=== PATIENT | male | born 1925 | race Caucasian/White ===

== ENCOUNTER 2016-05-06 14:41 | Inpatient (IN) | payer MEDICARE ==
[~2016-05-06] VITALS: Ht 182.9 cm; Wt 73.0 kg
[~2016-05-06 14:41] MED LIST: ALBU8.5H2 IH; ASP81TEC; ASPI-628 PO; FLUT12AE8 IH; HYDR25TA4 PO; INS7030U SQ; INSLIS SQ; INSU100I13 SUBQ; LISI10TA2 PO; LISI10TA9 PO; LOVA20TA PO; LOVA20TA7 PO; NPH,100V SQ; centrum silver; vitamin C
[2016-05-06 14:58] VITALS: BP 132/68; PULSE 99; RESP 16; O2SAT 87
[2016-05-06 15:07] VITALS: BP 116/70; PULSE 107; RESP 22; O2SAT 95
[2016-05-06] MEDS ORDERED: Azithromycin Inj 500 MG in Dextrose 5% w/Vial Mate 250 ML IV ONE (15:25)
[2016-05-06] MEDS ORDERED: cefTRIAXone Inj 2 GM in IV Premix 1 EACH IV ONE ×2 (15:25→15:50)
--- NOTE | 2016-05-06 15:26 | ED.REPORT ---
HPI-Dyspnea / Wheezing Date of Service May 06, 2016 ED Provider: Brock Shannon MD An 89 year old male with a history of diabetes, hypertension, hyperlipidemia, emphysema, and pneumonia presents to the ED accompanied by his family from his PCP's office for decreased O2 saturation and an abnormal x-ray just prior to arrival. The patient was at his PCP for a re-check after never fully recovering from influenza at the beginning of this month. His only complaint at this time is a productive cough, however his daughter has noticed increased work of breathing and SOB onset last night. His also noted that his blood sugar has been high over the past three days. The patient denies diaphoresis, hemoptysis, chest pain, lower extremity edema, dizziness, lightheadedness, decreased appetite, or other symptoms. He uses an albuterol inhaler regularly and has been hospitalized with pneumonia in the past. Nursing Notes Stated Complaint: POSSIBLE PNEUMONIA Chief Complaint: Respiratory Distress Nursing Notes Reviewed: Yes (KuGou, FitOrbits not reconciled) Allergies: Coded Allergies: No Known Allergies (Verified , 05/06/16) Scheduled ([centrum silver]) DAILY ([vitamin C]) DAILY Aspirin (Aspir 81) 81 Mg Tablet.dr 81 MG PO DAILY Aspirin-Expunged Drug, Do Not Renew! (Aspirin EC-Expunged Drug, Do Not Renew!) 81 Mg Tablet DAILY Fluticasone Propionate (Flovent HFA 110 mcg) 12 Gm Aer.w.adap 1 PUFF IH BID Hydrochlorothiazide (Hydrochlorothiazide) 25 Mg Tablet 25 MG PO DAILY Hydrochlorothiazide-Expunged, Do Not Renew! (Hydrochlorothiazide-Expunged, Do Not Renew!) 25 Mg Tablet 25 MG PO DAILY Insul NPH/REG-Expunged Drug, Do Not Renew! (Novolin 86-58-Utfwjbik Drug, Do Not Renew!) 10 Ml Vial 19 UNIT SQ AM Insulin Glargine (Lantus U100 Solostar Insulin Pen) 100 Unit/1 Ml Insuln.pen 50 UNIT SUBQ DAILY Insulin Lispro-Expunged Drug, Do Not Renew! (Humalog-Expunged Drug, Do Not Renew !) 100 U/Ml Vial 5 U SQ PRN Lisinopril (Lisinopril) 10 Mg Tablet 10 MG PO DAILY Lisinopril-Expunged Drug, Do Not Renew! (Lisinopril-Expunged Drug, Do Not Renew! ) 10 Mg Tablet 10 MG PO DAILY Lovastatin (Lovastatin) 20 Mg Tablet 20 MG PO HS Lovastatin-Expunged Drug, Do Not Renew! (Mevacor-Expunged Drug, Do Not Renew!) 20 Mg Tablet 20 MG PO DAILY Nph, Human Insulin Isop-Expunged Drug, Do Not (Novolin N-Expunged Drug, Do Not Renew!) 100 U/Ml Vial 26 U SQ HS Scheduled PRN Albuterol HFA (Proair HFA) 8.5 Gm Hfa.aer.ad 2 PUFFS IH Q4 PRN PRN For Shortness of Breath General Time Seen by MD: 15:18 Chief Complaint Cough Hx Obtained From: Patient, Spouse, Daughter Arrived By: Walk-in Sudden in Onset?: Yes Symptom Duration: More than a week... (3 weeks) Location: : None Severity: Current: No pain currently Severity: Maximum: No pain Associated with: Denies: Chest pain, Fever, Vomiting Pertinent Negative: Relieved by nothing Context Related History: Reports: Current meds, Pneumonia Recent Healthcare: Recent doctor visit Similar Sx Previous: Yes Past Medical History Past Medical History Diabetes mellitus ho Pancreatitis High cholesterol Emphysema (not on home O2) ho Pneumonia Hypertension Chronic left bundle-branch block Past Surgical History Cardiac catheterization Family History Noncontributory Smoking History Unknown if Ever Smoker Social History The patient does not normally drink alcohol but reports drinking alcohol yesterdat (03/14/15) Drug Use: Denies drug use Other Social History: Good social support, , Local resident Ambulatory Status Independent Review of Systems Review of Systems Note: + decreased O2 saturation, abnormal x-ray at PCP office, productive cough, increased work of breathing, elevated blood sugar - decreased appetite Constitutional: Denies: Fever Respiratory: Reports: Shortness of breath, Denies: Hemoptysis Cardiovascular: Denies: Chest pain Musculoskeletal: Denies: Extremity swelling Skin: Denies Diaphoresis Complete sys rev & neg: except as marked. GI: Denies: Vomiting Neurologic: Denies: Dizziness, Lightheaded Physical Exam Initial Vital Signs Vital Signs (First) Date Time Temp Pulse Resp B/P Pulse Ox O2 Delivery O2 Flow Rate FiO2 05/06/16 14:58 37.3 99 16 132/68 87 Room Air 05/06/16 15:07 2.5 Initial VS: Reviewed, Vital signs abnormal Skin: Warm, Dry, No cyanosis Neurologic: Alert, Oriented, Nonfocal Psychiatric: Mood/affect normal, Behavior normal, Normal thought content General/Constitutional: Awake, Alert, No acute distress Appears chronically ill Respiratory / Chest: No respiratory distress Wheezing / Retractions: Positive: Wheezing moderate (Bilateral) Rales / Rhonchi: Positive: Rhonchi diffuse (Bilateral) Tachypneic Patient denies dyspnea Cardiovascular: Heart rate NL, Regular rhythm, Heart sounds NL ENT: Airway patent, Mucous membranes moist Abdomen: Soft, Non-tender Lower Extremity / Pelvis / MS: Inspection NL, No edema Head / Eyes: Atraumatic, Normocephalic Conjunctiva / Sclera: Positive: Injected left, Injected right Interpretation & Diagnostics Interpretation & Diagnostics: Chest x-ray taken just prior to arrival in PCP office Influenza Negative Lab Results Interpretation Result Diagram: 05/06/16 1536 05/06/16 1536 Test 05/06/16 15:36 White Blood Count 10.2th/mm3 (3.8-10.1) Red Blood Count 5.06mil/mm3 (4.40-5.80) Hemoglobin 14.8g/dL (13.8-17.2) Hematocrit 44.6% (41.0-50.0) Mean Corpuscular Volume 88.1fL (81-100) Mean Corpuscular Hemoglobin 29.2pg (27.0-35.0) Mean Corpuscular Hemoglobin Concent 33.2% (32.0-37.0) Red Cell Distribution Width 12.9% (12.3-15.4) Platelet Count 391bil/L (150-400) Neutrophils (%) (Auto) 81.7% (40-74) Lymphocytes (%) (Auto) 9.9% (14-46) Monocytes (%) (Auto) 6.7% (4-12) Eosinophils (%) (Auto) 1.1% (0-5) Basophils (%) (Auto) 0.4% (0-3) Sodium Level 130mEq/L (134-144) Potassium Level 5.0mEq/L (3.5-5.2) Chloride Level 92mEq/L (97-108) Carbon Dioxide Level 23mmol/L (18-29) Blood Urea Nitrogen 50mg/dL (8-27) Creatinine 1.32mg/dL (0.76-1.27) Estimat Glomerular Filtration Rate 54mL/min (>59) Glucose Level 554mg/dL (60-99) Lactic Acid Level 2.1mmol/L (0.4-2.0) Calcium Level 8.8mg/dL (8.5-10.1) Total Bilirubin 0.4mg/dL (0.0-1.2) Aspartate Amino Transf (AST/SGOT) 24U/L (0-50) Alanine Aminotransferase (ALT/SGPT) 24U/L (0-44) Alkaline Phosphatase 116U/L (25-160) Troponin T 0.016ug/L (0.0-0.011) Pro-B-Type Natriuretic Peptide 2033pg/mL (0-486) Total Protein 7.8g/dL (6.4-8.4) Albumin 3.4g/dL (3.4-5.0) Lab Results Interpretation: CBC normal CMP's significant hyperglycemia, but no evidence of DKA Troponin marginally elevated, suspect secondary to hypoxia rather than primary cardiac etiology but may need to be trended BNP is elevated, the patient has no clinical radiographs of findings of congestive heart failure ECG Interpretation ECG Interpretation: Sinus rhythm rate 92 LBBB No change from 03/14/15 Time: 15:15 Interpreted by: ED physician X-Ray Chest Interpretation Chest Xray Interpretation: IMPRESSION: Patchy right basilar airspace opacity suspicious for pneumonia. Please correlate with clinical and laboratory data. Dictated by: Kathy Mcmillan MD, PhD on 05/06/2016 at 15:46 View: Portable, 1 view Interpretation / Wet Read by: Interpret - Radiologist Re-Eval/Medical Decision Med Decision/Clinical Course This is an 89-year-old male sent from the primary care physician office with symptoms and x-ray suggestive of pneumonia. This is a patient brought in by family,'s the patient's very stoic individual. He has chronic COPD, not on home O2, and is a diabetic. He has had a recent illness beginning of April along with his , she has recovered she still had a cough-and then symptoms started to worsen with increasing cough and increasing shortness of breath according to the family in the past couple of days. The patient denies having worsening, but all family members have noticed this-and the had a PCP appointment today and dragging along and demanded that he be examined. He was noted to have rhonchi, had a chest x-ray in the office was positive pneumonia noted to have an abnormally low O2 sat of 86% on room air, with his baseline being 90-92%. The patient was sent to the ED. Here he is afebrile, he is to-he claims that his breathing is baseline, per the family does say it felt worse than baseline, he looks mildly dyspneic. He does have wheezes and rhonchi. Have JVD, or leg edema or overt signs of heart failure clinically. Nor does he have evidence of DVT/PE clinically. Nurse initiated orders included a chest x-ray, which was unfortunately repeated before I was able to cancel because the nurses were not aware that he had one just prior to coming in. Both films demonstrate what looks like pneumonia and fits clinically. The patient's LABS ALSO SIGNIFICANT HYPERGLYCEMIA. HE IS BEING HYDRATED ALTHOUGH HIS BNP IS ELEVATED, I DO NOT THINK HE HAS CLINICAL CONGESTIVE HEART FAILURE. The patient received albuterol, Atrovent, steroids, he had a flu swab that was negative, as being started on ceftriaxone and Zithromax. He is being admitted in improved condition. I discussed CODE STATUS-the family after discussion the patient indicates that he will currently be full code, but indicates he does not want to be kept alive on a ventilator for sustained. If he does not rapidly turn around. Source of Hx: Old records Re-Evaluation/Progress : Time of Eval: 15:30 Patient Status: Condition improved Re-Evaluation/Progress Note: Discussed with patient x-ray results, diagnosis, and plan for admit. Patient agrees with plan for care and all questions were addressed. Discussed code status with patient in the presence of his and daughter. Patient is FULL CODE but does not want long resuscitative efforts and does not wish to have prolonged ventilator use if he is not turning around quickly. Consultation #1: Referral / Consult Name: Nathen Bridges DO Consulted With: Hospitalist Call Returned at: 16:22 [place]: Agrees with evvera, Agrees with plan, Accepts admit Consultation #2: Referral / Consult Name: Nathen Bridges DO Consulted With: Hospitalist Call Returned at: 16:59 [place]: Agrees with evvera, Agrees with plan Note: Updated Dr. Bridges on patient's case and lab results Differential Diagnosis: Positive: COPD exacerbation, Pneumonia, Negative: Hypertensive emergency, Pulmonary embolism, Respiratory failure Counseled Regarding: Diagnosis, Need for admission Discharge & Departure Impression: Primary Impression: Pneumonia Pneumonia type: due to unspecified organism Laterality: right Lung location : lower lobe of lung Qualified Code: J18.9 - Pneumonia, unspecified organism Additional Impressions: COPD (chronic obstructive pulmonary disease) COPD type: COPD with acute exacerbation Qualified Code: J44.1 - Chronic obstructive pulmonary disease with (acute) exacerbation Hyperglycemia Elevated troponin Hypoxia Disposition: ADMITTED TO HOSPITAL Discharge Condition All VS Reviewed: Yes Condition: Stable Referrals: Bandar Gutierrez DO (PCP) [place] Attestation Portions of this note were transcribed by Karey Kimball. I, Dr. Shannon, personally performed the history, physical exam, and medical decision-making; I reviewed and confirmed the accuracy of the information in the transcribed note. Signed by: Dedrick Medel, 05/06/2016, 16:32 copies to: Bandar Gutierrez Matthew F MD May 06, 2016 15:26 KAREY KIMBALL May 06, 2016 16:03
[2016-05-06 15:41] LABS: BASOPHILS % (AUTO) 0.4 % (0-3); EOSINOPHILS % (AUTO) 1.1 % (0-5); MONOCYTES % (AUTO) 6.7 % (4-12); Mean Corpuscular Hemoglobin 29.2 pg (27.0-35.0); Mean Corpuscular Volume 88.1 fL (81-100); NEUTROPHILS % (AUTO) 81.7 % (40-74); Platelet Count 391 bil/L (150-400)
--- NOTE | 2016-05-06 15:48 | DRSVH ---
PROCEDURE: X-RAY CHEST ONE VIEW, PORTABLE ([id number]) INDICATIONS: sob, cough TECHNIQUE: One view of the chest was acquired. COMPARISON: [facility], , CHEST 1VW (PORTABLE), 09/12/2007, 11:56. FINDINGS: Surgical changes and devices: None. Lungs and pleura: No pleural effusions or pneumothorax. Interstitial prominence is present unchanged compared to prior examination. Patchy air space opacities have developed the lung bases bilaterally suspicious for pneumonia. Mediastinum: Mediastinal contours appear normal. Heart size is normal. Bones and chest wall: No suspicious bony lesions. Overlying soft tissues appear unremarkable. IMPRESSION: Patchy right basilar airspace opacity suspicious for pneumonia. Please correlate with cli nical and laboratory data. Dictated by: Kathy Mcmillan MD, PhD on 05/06/2016 at 15:46 Approved by: Kathy Mcmillan MD, PhD on 05/06/2016 at 15:46
[2016-05-06] MEDS ORDERED: Albuterol-Ipratropium 3 mL Inhalation Solution NEB ONE (15:55)
[2016-05-06] MEDS ORDERED: CEFTRIAXONE IV ONE (15:55)
[2016-05-06] MEDS ORDERED: D5W IV ONE (15:55)
[2016-05-06] MEDS ORDERED: Albuterol 2.5 mg/3 mL Inhalation Solution NEB ONE (15:55)
[2016-05-06] MEDS ORDERED: MethylprednisoLONE Sodium Succinate 62.5 mg/mL 2 mL Inj IVPUSH ONE (15:55)
[2016-05-06 16:04] LABS: TROPONIN T 0.016 ug/L (0.0-0.011)
[2016-05-06 16:06] VITALS: BP 114/73; PULSE 93; RESP 16; RESP 23; O2SAT 90
[2016-05-06] MEDS ORDERED: Insulin Human REGular-Omnicell 100 Unit/mL SUBQ ONE (16:35)
[2016-05-06 16:43] VITALS: BP 116/73; PULSE 100; RESP 30; O2SAT 93
[2016-05-06] MEDS ORDERED: 0.9% Sodium Chloride 500 ML IV ONE (17:20)
[2016-05-06] MEDS ORDERED: Alum-Mag Hydrox-Simeth 30 mL Suspension PO PRN (17:25)
[2016-05-06] MEDS: Vancomycin Dose per Pharmacist XX SCH (17:25)
[2016-05-06] MEDS ORDERED: Polyethylene Glycol (PEG) 17 Gm Powder PO PRN (17:25)
[2016-05-06] MEDS ORDERED: Glucose 40% Oral Gel 15 Gm Tube PO PRN (17:25)
[2016-05-06 18:00] LABS: APPEARANCE,URINE CLEAR (CLEAR,HAZY); COLOR,URINE YELLOW (YELLOW); OCCULT BLOOD,URINE SMALL (NEGATIVE); PH,URINE 5.5 (5.0-8.0); UROBILINOGEN,URINE NORMAL (NORMAL)
[2016-05-06 18:23] VITALS: BP 113/57; PULSE 110; RESP 16; O2SAT 92
--- NOTE | 2016-05-06 18:24 | NUR ---
Admit Pt arrived to [facility]1 from the ED via [facility]. Rec'd report from ARNALDO Cross. Pt able to ambulate from [facility] to hospital bed. Droplet precautions initiated, IV SL, Pt reports no pain at this time. 2L via MD. ROLLER MAN oriented patient to room and call light.
--- NOTE | 2016-05-06 18:25 | PCM.HPMED ---
Subjective Date of Service May 06, 2016 Primary Provider: Admitting Physician: Nathen Bridges DO Primary Care Physician: Bandar Gutierrez DO Attending Physician: Nathen Bridges DO Admit Status: From the Emergency Department Chief Complaint: cough and dyspnea History of Present Illness: Hank is an 89yo male with emphysema and type 2 diabetes who presented to the Emergency department on request of his PCP after he was found to be hypoxic and an in office CXR showed a right lower lobe pneumonia. his had him go to his PCP as he has been coughing and appeared more ill to her. Hank and his both became ill after being exposed to a niece that had influenza A, they both completed 5 day courses of Tamiflu on 04/20/16. His recovered in 4 days , but he has continued to feel tired. Hank has a new cough with white-steiner sputum. He denies any dyspnea, but admits to feeling better with supplemental oxygen at 2L/h in the ER. He denies any night sweats, fever, or chills. He denies any recent travel. In the ER, he was given ceftriaxone 2g IV, Azithromycin 500mg IV, DuoNeb once and Solu-Medrol 125mcg IV. Note that his creatinine is 1.36 at baseline per outpatient record review. Review of Systems: A comprehensive review of systems was conducted with the patient and found to be negative except as above in the History of Present Illness. 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 Smoked 1 pack/day for 25 years.) Years of Smokin Additional Information Local resident who lives with his . no home supplemental oxygen use. Does not use any assistive devices to ambulate. He was in the , but never traveled overseas. He used to work in [employer], currently retired. Exam Vital Signs Vital Sign - Last Date Time Temp Pulse Resp B/P Pulse Ox O2 Delivery O2 Flow Rate FiO2 05/06/16 16:43 100 30 116/73 93 Nasal Cannula 05/06/16 16:06 2 05/06/16 14:58 37.3 Exam General: Elderly male patient sitting up in bed with an oxygen mask in place at 2L/h. No acute distress though he is ill appearing. Awake, alert and oriented. HEENT: Normocephalic, atraumatic. External ears without defect. Anicteric sclerae. Moist mucus membranes. Neck: No JVD or lymphadenopathy Cardiovascular: Regular rate and rhythm without murmurs, rubs, or gallops appreciated Pulmonary: Right basilar crackles present. Subtle wheezing throughout. No use of accessory muscles. No tripoding or gasping. No conversational dyspnea. Abdomen: Normoactive bowel tones. Soft, nontender, nondistended. No hepatosplenomegaly or masses appreciated. Extremities: No clubbing, cyanosis, or edema present. Thin extremities. Skin: Normal temperature, turgor, and texture; no rash.. Neurological: Cranial nerves grossly intact. Normal muscle strength, tone, and bulk. No known gait impairment. Psychiatric: Normal mood and affect. Lab and Diagnostics Result Diagram: 05/06/16 1536 05/06/16 1536 X-Rays, CTs and MRIs Chest xray: IMPRESSION: Patchy right basilar airspace opacity suspicious for pneumonia. Please correlate with clinical and laboratory data. Dictated by: Kathy Mcmillan MD, PhD on 05/06/2016 at 15:46 12-lead ECG EKG with a Left BBB, this is unchanged compared with an EKG from 2015 Assessment & Plan Hank is an 89yo male with emphysema who has had worsening cough and dyspnea 2 weeks after completing a course of Tamiflu for influenza A, found to be hypoxemic requiring supplemental oxygen and to have the appearance of a right basilar pneumonia on chest xray. 1. Community acquired pneumonia, acute - There is a potential risk for MRSA pneumonia given his recent influenza, thus treating with Vancomycin until MRSA screen result is available - Levofloxacin - Legionella and strep pneumoniae Antigen testing - Sputum cultures - Procalcitonin ordered 2. Acute on chronic COPD exacerbation in the setting of pneumonia - Prednisone 40mg daily for 5 days - DuoNeb q4h while awake - Supplemental oxygen to maintain oxygen saturation 88-92% - Monitor 3. Type 2 Diabetes mellitus, chronically on home insulin on well controlled - Hgb A1c of 7.9% on 04/21/2016 per [facility] records - Blood glucose much more elevated that is his norm, likely due to infection - Fingerstick blood glucose checks - Lantus 31units qHS - Medium correctional insulin 4. Hypertension, chronic and stable - Continue home hydrochlorothiazide dosing - Monitor 5. Hyperlipidemia, chronic and presumed stable - Continue statin therapy Acetaminophen PRN Bowel regimen PRN Hank is admitted under inpatient status with expected length of stay greater than 2 midnights due to severity of presenting symptoms, risk of adverse event, and complexity of treatment plan. VTE Prophylaxis: Sub-Q Heparin (Unfractionated) Resuscitation Status: DNR/DNI:Do Not Resuscitate/Intubate (Discussed at bedside with the patient. Would want BiPAP if he has a pulse. ) Time spent 50 minutes Attending Statement I have seen and evaluated patient at bedside in addition to directly supervising care provided by resident physician. I agree with above documentation. Amelia Sharma DO May 06, 2016 17:50 Nathen Bridges DO May 07, 2016 09:10
[2016-05-06] MEDS ORDERED: VANCOMYCIN IV ONE (18:30)
[2016-05-06] MEDS ORDERED: DEXTROSE 5% IV ONE (18:30)
[2016-05-06] MEDS: Insulin LISPRO 300 Unit/3 mL Inj SUBQ SCH ×2 (20:17→22:00)
[2016-05-06] MEDS ORDERED: Insulin GLARgine 100 Unit/mL Syringe SUBQ SCH (21:00)
[2016-05-06] MEDS: Albuterol-Ipratropium 3 mL Inhalation Solution NEB SCH (21:08)
[2016-05-06 21:09] VITALS: PULSE 112; RESP 20; O2SAT 91
--- NOTE | 2016-05-06 22:19 | PCM.CONPHA ---
Subjective Date of Service: May 06, 2016 cough and dyspnea Reason for Pharmacy Consult: Vancomycin Dosing Objective Vital Signs Date Time Temp Pulse Resp B/P Pulse Ox O2 Delivery O2 Flow Rate FiO2 05/06/16 21:09 112 20 91 Nasal Cannula 2.00 05/06/16 18:23 36.8 110 16 113/57 92 Nasal Cannula 2.00 05/06/16 17:48 37.3 100 30 116/73 93 Nasal Cannula 2 05/06/16 16:43 100 30 116/73 93 Nasal Cannula 05/06/16 16:06 93 16 114/73 90 Nasal Cannula 2 05/06/16 16:06 93 23 90 Nasal Cannula 2 05/06/16 15:07 107 22 116/70 95 Nasal Cannula 2.5 05/06/16 14:58 37.3 99 16 132/68 87 Room Air Weight (Kilograms): 71.600 Height (Feet): 6 Height (Inches): 0.00 Test 05/06/16 15:36 05/06/16 17:25 05/06/16 17:33 White Blood Count 10.2th/mm3 (3.8-10.1) Red Blood Count 5.06mil/mm3 (4.40-5.80) Hemoglobin 14.8g/dL (13.8-17.2) Hematocrit 44.6% (41.0-50.0) Mean Corpuscular Volume 88.1fL (81-100) Mean Corpuscular Hemoglobin 29.2pg (27.0-35.0) Mean Corpuscular Hemoglobin Concent 33.2% (32.0-37.0) Red Cell Distribution Width 12.9% (12.3-15.4) Platelet Count 391bil/L (150-400) Neutrophils (%) (Auto) 81.7% (40-74) Lymphocytes (%) (Auto) 9.9% (14-46) Monocytes (%) (Auto) 6.7% (4-12) Eosinophils (%) (Auto) 1.1% (0-5) Basophils (%) (Auto) 0.4% (0-3) Sodium Level 130mEq/L (134-144) Potassium Level 5.0mEq/L (3.5-5.2) Chloride Level 92mEq/L (97-108) Carbon Dioxide Level 23mmol/L (18-29) Blood Urea Nitrogen 50mg/dL (8-27) Creatinine 1.32mg/dL (0.76-1.27) Estimat Glomerular Filtration Rate 54mL/min (>59) Glucose Level 554mg/dL (60-99) Lactic Acid Level 2.1mmol/L (0.4-2.0) Calcium Level 8.8mg/dL (8.5-10.1) Total Bilirubin 0.4mg/dL (0.0-1.2) Aspartate Amino Transf (AST/SGOT) 24U/L (0-50) Alanine Aminotransferase (ALT/SGPT) 24U/L (0-44) Alkaline Phosphatase 116U/L (25-160) Troponin T 0.016ug/L (0.0-0.011) Pro-B-Type Natriuretic Peptide 2033pg/mL (0-486) Total Protein 7.8g/dL (6.4-8.4) Albumin 3.4g/dL (3.4-5.0) Urine Color Yellow (YELLOW) Urine Appearance Clear (CLEAR,HAZY) Urine pH 5.5 (5.0-8.0) Urine Specific [place] 1.020 (1.003-1.035) Urine Protein Negativemg/dL (NEG,TRACE) Urine Glucose (UA) >1000mg/dL (NEGATIVE) Urine Ketones Negativemg/dL (NEGATIVE) Urine Occult Blood Small (NEGATIVE) Urine Nitrite Negative (NEGATIVE) Urine Bilirubin Negative (NEGATIVE) Urine Urobilinogen Normalmg/dL (NORMAL) Urine Leukocyte Esterase Trace (NEGATIVE) Urine RBC 0-2/hpf (0-2) Urine WBC >50/hpf (0-5) Urine Epithelial Cells Few/hpf (NONE-MOD) Urine Crystals None seen (NONE SEEN) Urine Bacteria Many/hpf (NONE-FEW) Urine Hyaline Casts None/lpf (NONE) Urine Granular Casts None seen (NONE SEEN) Urine Waxy Casts None seen (NONE SEEN) Urine Red Blood Cell Casts None seen (NONE SEEN) Urine White Blood Cell Casts None seen (NONE SEEN) Urine Mucus None seen (None Seen) Urine Trichomonas None seen (NONE SEEN) Urine Yeast None (NONE SEEN) Urinalysis Comment None Urine Culture Reflexed Indicated Assessment/Plan Assessment/Plan Vanco per Rx Indication: PNA/ possible MRSA Goal trough : 15-20 Due to uncertain renal status, will do 1st rough after 24hrs LD: 1250mg Enzo Norris PharmD May 06, 2016 22:19
[2016-05-06] MEDS ORDERED: Dextrose 5% 0.45% NaCl 1,000 ML IV PRN (23:03)
[2016-05-06] MEDS ORDERED: Insulin Human REGular Inj 100 UNIT in 0.9% Sodium Chloride-Pha MIX 100 ML IV SCH (23:03)
[2016-05-07] VITALS (7 sets, daily range): BP systolic 106–121; BP diastolic 56–70; PULSE 82–98; RESP 15–20; O2SAT 90–98
[2016-05-07] MEDS: Sodium Chloride LOK Flush 10 mL Syringe IVFLUSH SCH ×3 (00:30→16:29)
[2016-05-07] MEDS: Heparin 5,000 Unit/mL Inj SUBQ SCH ×4 (00:30→18:25)
--- NOTE | 2016-05-07 04:30 | NUR ---
BG/ Insulin Drip At beginning of shift patients BG was 568. 7 units or sliding scale was given, and MD notified. BG recheck was 590. At 2200 31 units of lantus given, and 7 units sliding scale was held per hospitalist order. Hospitalist wanted to hold sliding scale and recheck blood sugar in 1 hour. Upon reassessment at 2300 BG was 549. MD notified, and an insulin drip was ordered. Drip was started at 0049. Patient has denied any diaphoresis, headache, dizziness, or anxiety during this. Will continue to monitor, and continue Q1 hour, or more frequent checks depending on BG status.
[2016-05-07 04:58] LABS: BASOPHILS % (AUTO) 0.1 % (0-3); EOSINOPHILS % (AUTO) 0 % (0-5); MONOCYTES % (AUTO) 1.4 % (4-12); Mean Corpuscular Hemoglobin 29.7 pg (27.0-35.0); Mean Corpuscular Volume 86.8 fL (81-100); NEUTROPHILS % (AUTO) 94.6 % (40-74); Platelet Count 336 bil/L (150-400)
[2016-05-07] MEDS: Albuterol-Ipratropium 3 mL Inhalation Solution NEB SCH ×2 (07:40→11:57)
[2016-05-07] MEDS: Insulin LISPRO 300 Unit/3 mL Inj SUBQ SCH ×6 (08:00→22:17)
[2016-05-07] MEDS: Vancomycin Dose per Pharmacist XX SCH (08:30)
[2016-05-07] MEDS ORDERED: 0.9% Sodium Chloride 500 ML IV ONE (09:10)
[2016-05-07] MEDS ORDERED: 0.9% Sodium Chloride 250 ML IV ONE (09:25)
--- NOTE | 2016-05-07 09:30 | NUR ---
Insulin Drip IV Insulin drip was d/c'd per MD order at 0930.
--- NOTE | 2016-05-07 09:30 | NUR ---
IV Bolus Per MD order pt received 250mL IV bolus. Tolerated well.
[2016-05-07] MEDS: predniSONE 20 mg Tablet PO SCH (09:57)
[2016-05-07] MEDS: 0.9% Sodium Chloride 1,000 ML IV SCH ×2 (09:57→20:04)
[2016-05-07] MEDS: levoFLOXacin Inj 750 MG in IV Premix 1 EACH IV SCH (09:58)
[2016-05-07] MEDS ORDERED: Albuterol-Ipratropium 3 mL Inhalation Solution NEB PRN (16:51)
[2016-05-07] MEDS ORDERED: OMEG1CAP99 PO (19:43)
[2016-05-07] MEDS ORDERED: GLUC500T12 PO (19:44)
[2016-05-07] MEDS ORDERED: SALM50DI IH (19:46)
[2016-05-07] MEDS ORDERED: INSU100I17 SUBQ (19:46)
--- NOTE | 2016-05-07 20:28 | PCM.PNMED ---
Subjective Date of Service May 07, 2016 Subjective Hank has been feeling a bit better today. Exam Vital Signs Vital Sign - Last Date Time Temp Pulse Resp B/P Pulse Ox O2 Delivery O2 Flow Rate FiO2 05/07/16 15:41 36.8 93 17 119/61 90 Nasal Cannula 3.00 Intake and Output 05/06/16 05/06/16 05/07/16 Cumulative From/Thru 15:00 23:00 07:00 05/06/16 14:58 - 05/07/16 06:52 Intake Total 550 ml 936 ml 1486 ml Output Total 200 ml 1150 ml 1350 ml Balance 350 ml -214 ml 136 ml Intake Oral 636 ml 636 ml IV Total 550 ml 300 ml 850 ml Output Urine Total 200 ml 1150 ml 1350 ml # Voids 1 1 # Bowel Movements 0 0 Exam General: Elderly male patient sitting up in bed with an oxygen mask in place at 2L/h. No acute distress. Well nourished. Awake, alert and oriented. HEENT: Normocephalic, atraumatic. External ears without defect. Anicteric sclerae. Moist mucus membranes. Neck: No JVD or lymphadenopathy Cardiovascular: Regular rate and rhythm without murmurs, rubs, or gallops appreciated Pulmonary: Right basilar crackles present. No wheezes or rhonchi. No use of accessory muscles. No tripoding or gasping. No conversational dyspnea. Abdomen: Normoactive bowel tones. Soft, nontender, nondistended. No hepatosplenomegaly or masses appreciated. Extremities: No clubbing, cyanosis, or edema present. Thin extremities. Skin: Normal temperature, turgor, and texture; no rash.. Neurological: Cranial nerves grossly intact. Normal muscle strength, tone, and bulk. No known gait impairment. Psychiatric: Normal mood and affect. IVs and Medications Medications Reviewed: Medications were reviewed in detail Lab and Diagnostics Result Diagram: 05/07/16 9213 05/07/16 1208 Assessment & Plan Hank is an 89yo male with emphysema who has had worsening cough and dyspnea 2 weeks after completing a course of Tamiflu for influenza A, found to be hypoxemic requiring supplemental oxygen and to have the appearance of a right basilar pneumonia on chest xray. 1. Community acquired pneumonia, acute - There is a potential risk for MRSA pneumonia given his recent influenza, thus treating with Vancomycin until MRSA screen result is available - Levofloxacin - Legionella and strep pneumoniae Antigen testing was negative - Sputum cultures - Procalcitonin is low, though prednisone could be suppressing this value 2. Acute on chronic COPD exacerbation in the setting of pneumonia - Prednisone 40mg daily for 5 days - DuoNeb q4h while awake - Supplemental oxygen to maintain oxygen saturation 88-92% - Monitor 3. Type 2 Diabetes mellitus, chronically on home insulin on well controlled - Hgb A1c of 7.9% on 04/21/2016 per [facility] records - Blood glucose much more elevated that is his norm, likely due to infection - Fingerstick blood glucose checks - Lantus daily - Medium correctional insulin - Constant carbohydrate diet 4. Hypertension, chronic and stable - Continue home hydrochlorothiazide dosing - Monitor 5. Hyperlipidemia, chronic and presumed stable - Continue statin therapy Acetaminophen PRN Bowel regimen PRN VTE Prophylaxis: Sub-Q Heparin (Unfractionated) VTE Mechanical Devices: Intermittant Pneumatic CD Resuscitation Status: DNR/DNI:Do Not Resuscitate/Intubate (Discussed at bedside with the patient. Would want BiPAP if he has a pulse. ) Time spent 25 minutes Attending Statement I have seen and evaluated patient at bedside in addition to directly supervising care provided by resident physician. I agree with above documentation. Amelia Sharma DO May 07, 2016 20:28 Nathen Bridges DO May 08, 2016 12:15
[2016-05-07] MEDS ORDERED: Vancomycin Serum Trough XX ONE (20:30)
[2016-05-07] MEDS: Insulin GLARgine 100 Unit/mL Syringe SUBQ SCH (22:16)
--- NOTE | 2016-05-07 22:23 | PCM.PHAPRO ---
Progress Date of Service: May 07, 2016 cough and dyspnea Vanco per Rx SCR improving; continue current dose of 1250mg q24h Trough Gaol: 15-20; Estimated Trough @ SS: 16.3 Next trough in 48hrs, 30 mins before 4th dose Enzo Norris PharmD May 07, 2016 22:23
[2016-05-08] MEDS: Sodium Chloride LOK Flush 10 mL Syringe IVFLUSH SCH ×3 (00:29→16:30)
[2016-05-08] MEDS: Heparin 5,000 Unit/mL Inj SUBQ SCH ×3 (00:35→16:53)
[2016-05-08] MEDS: Insulin LISPRO 300 Unit/3 mL Inj SUBQ SCH ×6 (04:31→22:05)
--- NOTE | 2016-05-08 04:35 | NUR ---
High blood sugar Pt's blood sugar upon re-checking at 3 AM was 322. paged. placed an order for a one time sliding scale. Will continue to monitor.
[2016-05-08 04:37] VITALS: BP 163/80; PULSE 76; RESP 20; O2SAT 93
[2016-05-08 05:02] LABS: BASOPHILS % (AUTO) 0 % (0-3); EOSINOPHILS % (AUTO) 0 % (0-5); MONOCYTES % (AUTO) 4.2 % (4-12); Mean Corpuscular Hemoglobin 29.9 pg (27.0-35.0); Mean Corpuscular Volume 88.5 fL (81-100); NEUTROPHILS % (AUTO) 91.9 % (40-74); Platelet Count 328 bil/L (150-400)
[2016-05-08] MEDS: 0.9% Sodium Chloride 1,000 ML IV SCH ×2 (06:13→20:29)
[2016-05-08] MEDS: levoFLOXacin Inj 750 MG in IV Premix 1 EACH IV SCH (08:52)
[2016-05-08] MEDS: predniSONE 20 mg Tablet PO SCH (08:52)
--- NOTE | 2016-05-08 12:11 | PCM.PNMED ---
Subjective Date of Service May 08, 2016 Subjective Hank reports that he is feeling okay. His daughter, who has been staying with him during this hospitalization, states that he seems weaker than his usual self. He has not yet been out of bed or had a bowel movement since being admitted 2 days ago. He denies any burning or pain with urination. Denies any flank pain. Exam Vital Signs Vital Sign - Last Date Time Temp Pulse Resp B/P Pulse Ox O2 Delivery O2 Flow Rate FiO2 05/08/16 09:03 Supplement Oxygen 05/08/16 04:37 36.4 76 20 163/80 93 2.00 Intake and Output 05/07/16 05/07/16 05/08/16 Cumulative From/Thru 15:00 23:00 07:00 05/06/16 14:58 - 05/08/16 06:14 Intake Total 1775 ml 2901 ml 6162 ml Output Total 350 ml 800 ml 2500 ml Balance 1425 ml 2101 ml 3662 ml Intake Oral 636 ml 636 ml 1908 ml IV Total 1139 ml 2265 ml 4254 ml Output Urine Total 350 ml 800 ml 2500 ml # Voids 1 # Bowel Movements 0 0 0 Exam General: Elderly male patient sitting up in bed with oxygen via nasal cannula at 2L/h. No acute distress. Well nourished. Awake, alert and oriented. HEENT: Normocephalic, atraumatic. External ears without defect. Anicteric sclerae. Moist mucus membranes. Neck: No JVD or lymphadenopathy Cardiovascular: Regular rate and rhythm without murmurs, rubs, or gallops appreciated Pulmonary: Right basilar crackles present. No wheezes or rhonchi. No use of accessory muscles. No tripoding or gasping. No conversational dyspnea. Abdomen: Normoactive bowel tones. Soft, nontender, nondistended. No hepatosplenomegaly or masses appreciated. Extremities: No clubbing, cyanosis, or edema present. Thin extremities. Skin: Normal temperature, turgor, and texture; no rash.. Neurological: Cranial nerves grossly intact. Normal muscle strength, tone, and bulk. Normal speech. No known gait impairment. Psychiatric: Normal mood and affect. IVs and Medications Medications Reviewed: Medications were reviewed in detail Lab and Diagnostics Result Diagram: 05/08/16 0443 05/08/16 044 Microbiology Urine culture: Klebsiella pneumoniae Sputum culture: Strep pneumoniae Assessment & Plan Hank is an 89yo male with emphysema who has had worsening cough and dyspnea 2 weeks after completing a course of Tamiflu for influenza A, found to be hypoxemic requiring supplemental oxygen and to have the appearance of a right basilar pneumonia on chest xray. 1. Community acquired pneumonia, acute - Discontinued vancomycin as MRSA negative, concern for MRSA at admission due to his recent influenza A - Sputum cultures with moderate growth of strep pneumoniae - Ceftriaxone to treat his pneumonia and UTI, may transition to Augmentin BID once more stable - Procalcitonin is low, though prednisone could be suppressing this value - Continue to monitor the leukocytosis 2.Urinary tract infection with klebsiella, acute and present on admission. - He has been asymptomatic with the exception of weakness which may also be attributed to pneumonia - Urine culture with klebsiella pneumoniae - Has been receiving levofloxacin of which klebsiella is sensitive 3. Acute on chronic COPD exacerbation in the setting of pneumonia - Prednisone 40mg daily for 5 days, last day will be 05/12/16 - DuoNeb q4h while awake PRN - Supplemental oxygen to maintain oxygen saturation 88-92% - Monitor 4. Type 2 Diabetes mellitus, chronically on home insulin on well controlled - Hgb A1c of 7.9% on 04/21/2016 per [facility] records - Blood glucose much more elevated that is his norm, likely due to infection - Fingerstick blood glucose checks - Lantus 35units daily - Medium correctional insulin - Constant carbohydrate diet 5. Hypertension, chronic and stable - Continue home hydrochlorothiazide dosing - Monitor 6. Hyperlipidemia, chronic and presumed stable - Continue statin therapy Acetaminophen PRN Bowel regimen PRN Physical therapy to assist the patient with ambulation within the room VTE Prophylaxis: Sub-Q Heparin (Unfractionated) VTE Mechanical Devices: Intermittant Pneumatic CD Resuscitation Status: DNR/DNI:Do Not Resuscitate/Intubate (Discussed at bedside with the patient. Would want BiPAP if he has a pulse. ) Time spent 25 minutes Attending Statement I have seen and evaluated patient at bedside and directly supervised care provided by resident physician. I agree with above documentation. Amelia Sharma DO May 08, 2016 12:10 Nathen Bridges DO May 08, 2016 15:14
[2016-05-08] MEDS ORDERED: cefTRIAXone Inj 2 GM in IV Premix 1 EACH IV SCH (12:15)
--- NOTE | 2016-05-08 15:05 | NUR ---
Social Work: ASHWIN Patient's signed ASHWIN.
[2016-05-08] MEDS: cefTRIAXone Inj 2,000 MG in Dextrose 5% Minibag Plus 50 ML IV SCH (15:24)
--- NOTE | 2016-05-08 15:35 | NUR ---
Oxygen Attempted to ween pt off O2 today, had pt sating 92% on 0.5 L, pt desated into the mid to low 80s on RA. Pt back on 0.5L O2 Pt up to bathroom 1 assist, took a shower with FILM OR VIDEOTAPE EDITOR assistance. encouraging coughing and deep breathing.
[2016-05-08 15:36] VITALS: BP 132/60; PULSE 76; RESP 20; O2SAT 93
--- NOTE | 2016-05-08 16:33 | NUR ---
Social Work: Initial Assessment Data & Assessment: EMR Reviewed. See Initial Assessment. Veteran Appeals Reviewer met with patient, patient's and patient's daughter to complete initial Assessment, review SW role and discuss discharge planning. Patient is a 89 y/o male that admitted due to Pneumonia and COPD. Patient's NOK is his Nia Wynn and patient's DPOA is his son Star Salgado. SW requested a copy of patient's DPOA. Patient's insurance is [employer] and his PCP is Bandar Wilson DO. Patient does not have any HH or SNF history. Patient does not have VA or LTC benefits. Patient is independent at baseline. Patient lives in a 1 story home with his . Patient has one step to enter the home and 14steps inside the home leading to the basement. Patient does not have any discharge needs at the current time. SW will continue to follow the patient incase a need arise. Plan: Patient is likely ti discharge ome with in POV. Patient's daughter will transport him home when discharged. SW continue to follow. Fitz Corcoran LMSW, JENIFER Addendum: 05/08/16 at 1644 by FITZ GARCIA Amended: Links added.
[2016-05-08 19:40] VITALS: BP 157/88; PULSE 81; RESP 20; O2SAT 92
[2016-05-08] MEDS: Insulin GLARgine 100 Unit/mL Syringe SUBQ SCH (22:04)
[2016-05-09] MEDS: Sodium Chloride LOK Flush 10 mL Syringe IVFLUSH SCH ×2 (00:30→08:04)
[2016-05-09] MEDS: Heparin 5,000 Unit/mL Inj SUBQ SCH ×2 (00:47→08:14)
--- NOTE | 2016-05-09 04:10 | NUR ---
Blood sugars/ Activity Upon 3 AM re-check, pt's blood sugar was in the 120's which pt. was very happy about. Pt. uses urinal as needed. Son in room. Will continue to monitor.
[2016-05-09 04:53] VITALS: BP 155/88; PULSE 60; RESP 18; O2SAT 94
[2016-05-09 05:36] LABS: BASOPHILS % (AUTO) 0.1 % (0-3); EOSINOPHILS % (AUTO) 0.1 % (0-5); MONOCYTES % (AUTO) 12.1 % (4-12); Mean Corpuscular Hemoglobin 29.6 pg (27.0-35.0); Mean Corpuscular Volume 88.8 fL (81-100); NEUTROPHILS % (AUTO) 75.4 % (40-74); Platelet Count 319 bil/L (150-400)
[2016-05-09] MEDS: 0.9% Sodium Chloride 1,000 ML IV SCH (05:58)
--- NOTE | 2016-05-09 07:26 | PCM.PNMED ---
Subjective Date of Service May 09, 2016 Subjective Pt demonstrating continued improvement over past 24 hours in terms of respiratory function, though still remains oxygen dependant as of this morning. Blood sugars as well have improved, but still requiring some correctional insulin via sliding scale. Accompanied by son who stayed in hospital overnight, he has no other acute concerns at this time. Exam Vital Signs Vital Sign - Last Date Time Temp Pulse Resp B/P Pulse Ox O2 Delivery O2 Flow Rate FiO2 05/09/16 04:53 36.3 60 18 155/88 94 Nasal Cannula 1.50 Intake and Output 05/08/16 05/08/16 05/09/16 Cumulative From/Thru 15:00 23:00 07:00 05/06/16 14:58 - 05/09/16 05:59 Intake Total 2323 ml 1630 ml 30233 ml Output Total 1225 ml 1850 ml 5575 ml Balance 1098 ml -220 ml 4540 ml Intake Oral 1396 ml 450 ml 3754 ml IV Total 927 ml 1180 ml 6361 ml Output Urine Total 1225 ml 1850 ml 5575 ml # Voids 4 3 8 # Bowel Movements 0 0 General: Alert, Mild Distress Mouth: Mucous Membranes Dry Chest & Lungs: Clear to auscultation & percussion, Other (expiraotry wheezes, of lesser intensity than previous. good airflow noted in all lung scott. ) Abdomen: Non-tender Extremities: No cyanosis/clubbing/edma bilat IVs and Medications Medications Reviewed: Medications were reviewed in detail Lab and Diagnostics Result Diagram: 05/09/1651805/09/16518 Microbiology Urine culture: Klebsiella pneumoniae Sputum culture: Strep pneumoniae Assessment & Plan Hank is an 89yo male with emphysema who has had worsening cough and dyspnea 2 weeks after completing a course of Tamiflu for influenza A, found to be hypoxemic requiring supplemental oxygen and to have the appearance of a right basilar pneumonia on chest xray. 1. Community acquired pneumonia, acute - Discontinued vancomycin as MRSA negative, concern for MRSA at admission due to his recent influenza A - Sputum cultures with moderate growth of strep pneumoniae - Ceftriaxone to treat his pneumonia and UTI, may transition to Augmentin BID once more stable - Procalcitonin is low, though prednisone could be suppressing this value - Continue to monitor the leukocytosis, now downward trending. 2.Urinary tract infection with klebsiella, acute and present on admission. - He has been asymptomatic with the exception of weakness which may also be attributed to pneumonia - Urine culture with klebsiella pneumoniae - Has been receiving levofloxacin of which klebsiella is sensitive 3. Acute on chronic COPD exacerbation in the setting of pneumonia - Prednisone 40mg today with plan to decrease to 20mg tomorrow to complete 5 day burst, given improved reparatory function, and apparent detrimental effect to blood sugar control with current dosage. - DuoNeb q4h while awake PRN - Supplemental oxygen to maintain oxygen saturation 88-92%, hope to discontinue today in anticipation of DC tomorrow. 4. Type 2 Diabetes mellitus, chronically on home insulin on well controlled - Hgb A1c of 7.9% on 04/21/2016 per [facility] records - Blood glucose much more elevated that is his norm, likely due to infection and steroid use. - Fingerstick blood glucose checks - Lantus 50U QHS, home dosage. - Medium correctional insulin at this time, pt does not utuilize at home, ideally pt will be off correctional insulin prior to DC. - Constant carbohydrate diet 5. Hypertension, chronic and stable - Continue home hydrochlorothiazide dosing - Monitor 6. Hyperlipidemia, chronic and presumed stable - Continue statin therapy Acetaminophen PRN Bowel regimen PRN Physical therapy to assist the patient with ambulation within the room Pain Evaluation: Adequate Pain Control VTE Prophylaxis: Sub-Q Heparin (Unfractionated) VTE Mechanical Devices: Intermittant Pneumatic CD Resuscitation Status: DNR/DNI:Do Not Resuscitate/Intubate (Discussed at bedside with the patient. Would want BiPAP if he has a pulse. ) Time spent 25 minutes Nathen Bridges DO May 09, 2016 07:26
[2016-05-09] MEDS: Insulin LISPRO 300 Unit/3 mL Inj SUBQ SCH ×2 (08:00→12:32)
[2016-05-09] MEDS ORDERED: predniSONE 20 mg Tablet PO SCH (08:30)
[2016-05-09] MEDS ORDERED: AMOX-366 PO (10:38)
[2016-05-09] MEDS ORDERED: PRED-508 PO (10:38)
--- NOTE | 2016-05-09 10:41 | PCM.DIMED ---
Discharge Instructions Date of Service May 09, 2016 Dates of Hospitalization May 06, 2016 at 17:09 Discharge Diagnosis Discharge Diagnosis 1. Community acquired pneumonia, acute 2.Urinary tract infection with klebsiella, acute and present on admission. 3. Acute on chronic COPD exacerbation in the setting of pneumonia 4. Type 2 Diabetes mellitus, chronically on home insulin on well controlled 5. Hypertension, chronic and stable 6. Hyperlipidemia, chronic and presumed stable Medication Instructions Complete antibiotic course and steroid course. Take all prescribed medications until complete Please check blood sugar in evening prior to administration of Lantus 50U HS. Consider lower dosage (30 units) for blood sugar less than 100. Call PCP with further questions if needed. Diet No restrictions, Diabetic Activity Limited until seen by PCP Call your provider Fever or Chills, Shortness of breath, Chest pain Patient Instructions Follow-up plan Complete antibiotic and steroid courses. FU with PCP in 1 week, sooner if condition worsens. Follow-up Provider: Bandar Gutierrez DO Follow-up with PCP in: 1 week Nathen Bridges DO May 09, 2016 10:41
--- NOTE | 2016-05-09 10:48 | PCM.DC.MED ---
Discharge Summary Date of Service May 09, 2016 Dates of Hospitalization Date of Hospital Admission May 06, 2016 at 17:09 Date of Discharge: May 09, 2016 Providers: Admitting Physician: Nathen Bridges DO Primary Care Physician: Bandar Gutierrez DO Attending Physician: Nathen Bridges DO Diagnosis at Time of Discharge Diagnosis at Time of Discharge 1. Community acquired pneumonia, acute 2.Urinary tract infection with klebsiella, acute and present on admission. 3. Acute on chronic COPD exacerbation in the setting of pneumonia 4. Type 2 Diabetes mellitus, chronically on home insulin on well controlled 5. Hypertension, chronic and stable 6. Hyperlipidemia, chronic and presumed stable Procedures XRay, CTs & MRIs PROCEDURE: X-RAY CHEST ONE VIEW, PORTABLE ([id number]) INDICATIONS: sob, cough TECHNIQUE: One view of the chest was acquired. COMPARISON: [facility], , CHEST 1VW (PORTABLE), 09/12/2007, 11:56. FINDINGS: Surgical changes and devices: None. Lungs and pleura: No pleural effusions or pneumothorax. Interstitial prominence is present unchanged compared to prior examination. Patchy air space opacities have developed the lung bases bilaterally suspicious for pneumonia. Mediastinum: Mediastinal contours appear normal. Heart size is normal. Bones and chest wall: No suspicious bony lesions. Overlying soft tissues appear unremarkable. IMPRESSION: Patchy right basilar airspace opacity suspicious for pneumonia. Please correlate with clinical and laboratory data. Dictated by: Kathy Mcmillan MD, PhD on 05/06/2016 at 15:46 Other Diagnostics PHYSICIAN Name: MAY GEORGES Age/Sex: 89/M Attend Dr: Nathen Bridges Acct: [id number] Unit: [id number] Status: ADM IN Location[place] [facility] [place]1-1 Re05/06/16 Disch: Specimen: [id number] Collected: 05/06/16 Status: ARY Sosa#: [id number] Received: 05/06/16 Source: RANDOM Sp Desc : Raheem Dr: MARLA,ED Ordered: URINE CULT Procedure Result Verified Site Microbiology WES CULT URINE Final 05/08/16 Organism 1 KLEBSIELLA PNEUMONIAE U COLONY COUNT/QUANTITY >100,000 CFU/ml Cefazolin-predicts results for the oral agents, cefaclor,cefdinir, cefpodoximen, cefprozil, cefuroximne axetil, cephalexin and loracarbed when used for therapy of uncomplicated UTI's due to E. coli, K. pneumoniae, and Proteus mirabilis. Cefpodoxime, cefdinir and cefuroxime axetil may be tested individually because some isolates may be susceptible to these agents while testing resistant to cefazolin. (CLSI R415-K13 pg 53) 1. KLEBSIELLA PNEUMONIAE M.I.C Interp --------- ------ * AMOXICILLIN/CLAVULATE <=2 S * AMPICILLIN >=32 R * CEFAZOLIN (CEPHALOSPORIN) UTI 4 S * CEFEPIME <=1 S * CEFTRIAXONE <=1 S * CEFUROXIME SODIUM <=1 S * CIPROFLOXACIN <=0.25 S * ERTAPENEM <=0.5 S * GENTAMICIN <=1 S * IMIPENEM <=1 S * LEVOFLOXACIN <=0.12 S * NITROFURANTOIN 64 I * TETRACYCLINE <=1 S * TOBRAMYCIN <=1 S * TRIMETHOPRIM/SULFAMETHOXAZOLE <=20 S END OF REPORT Name: MAY GEORGES Age/Sex: 89/M Attend Dr: Nathen Bridges Acct: [id number] Unit: [id number] Status: ADM IN Location: [facility] [place]- Re05/06/16 Disch: Specimen: [id number] Collected: 05/06/16 Status: COMP Req#: [id number] Received: 05/06/16 Source: SPUTUM EXP Sp Desc : Subm Dr: Amelia Sharma DO Ordered: GRAM SPT REFLEX, SPUTUM CULTURE Comments: Collected by Nurse/Unit? Y/N Y Procedure Result Verified Site Microbiology WES CULT SPUTUM GS Final 05/06/16-2338 SPT GRAM STAIN FEW POLYS RARE EPITHELIAL CELLS MANY MIXED NORMAL JAMILAH This Spec is of good Quality and acceptable for Cult RESPIRATORY CULTURE Final 05/09/16-09 Organism 1 STREPTOCOCCUS PNEUMONIAE COLONY COUNT/QUANTITY MODERATE GROWTH Organism 2 WITH NORMAL JAMILAH COLONY COUNT/QUANTITY MODERATE GROWTH "This nonmeningitis pneumococcal isolate that is susceptible to penicillin can be considered susceptible to the oral agents ampicillin, amoxicillin, amoxicillin-clavulanic acid, cefalor, cefdinir, efditoren,cefpodoxime,cefprozil, cefuroxime and loracarbef, and to the parental agents ampicillin, ampicillin-sulbactam,cefepime, cefotaxime, ceftizoxime, ceftriaxone, cefuroxime, ertapenem, imipenem, and meropenem, for approved indications.. Doses of IV penicillin of at least 2 million units every 4 hours in adults with normal renal function (12 million units per day) are effective in treating nonmeningeal pneumococcal infections due to strains that are susceptible to penicillin. (CLSI 2011)" 1. STREPTOCOCCUS PNEUMONIAE M.I.C Interp --------- ------ * ERYTHROMYCIN R * LINEZOLID <=2 S * MEROPENEM .008 S * TRIMETHOPRIM/SULFAMETHOXAZOLE <=10 S * VANCOMYCIN 0.5 S * PENICILLIN-G OTHER <=0.06 S * PENICILLIN G MENINGITIS <=0.06 S * CEFOTAXIME MENINGITIS <=0.12 S * CEFOTAXIME OTHER <=0.12 S CONTINUED ON NEXT PAGE RUN DATE: 05/09/16 [facility] LIVE PAGE 2 RUN TIME: 901 Specimen Inquiry PHYSICIAN Patient: JOYCEMASHA MULLIGANEdmar Billings [id number] (Continued) Specimen: [id number] Collected: 05/06/16 Received: 05/06/16 (Continued) Procedure Result Verified Site RESPIRATORY CULTURE Final (continued) 05/09/16-901 1. STREPTOCOCCUS PNEUMONIAE (continued) M.I.C Interp --------- ------ * CEFTRIAXONE-MENINGITIS <=0.12 S * CEFTRIAXONE OTHER <=0.12 S Brief History As per HPI by Dr Sharma, "May is an 89yo male with emphysema and type 2 diabetes who presented to the Emergency department on request of his PCP after he was found to be hypoxic and an in office CXR showed a right lower lobe pneumonia. his had him go to his PCP as he has been coughing and appeared more ill to her. May and his both became ill after being exposed to a niece that had influenza A, they both completed 5 day courses of Tamiflu on . His recovered in 4 days, but he has continued to feel tired. May has a new cough with white-steiner sputum. He denies any dyspnea, but admits to feeling better with supplemental oxygen at 2L/h in the ER. He denies any night sweats, fever, or chills. He denies any recent travel. In the ER, he was given ceftriaxone 2g IV, Azithromycin 500mg IV, DuoNeb once and Solu-Medrol 125mcg IV. Note that his creatinine is 1.36 at baseline per outpatient record review." Hospital Course 1. Community acquired pneumonia, acute: Discontinued vancomycin after MRSA negative, concern for MRSA at admission due to his recent influenza A - Sputum cultures with moderate growth of strep pneumoniae, sensitive to PCN. Respiratory function was greatly improved, pt stable on room air at time of DC. Addition 7 day course of Augmentin was RX'd for lung infection in addition to UTI discussed below. - Prednisone was also continued, 3 addition days of 20 mg prescribed to complete course. 2.Urinary tract infection with klebsiella, acute and present on admission. - He has been asymptomatic with the exception of weakness which may also be attributed to pneumonia - Urine culture with klebsiella pneumoniae - Has been receiving levofloxacin of which klebsiella is sensitive 3. Acute on chronic COPD exacerbation in the setting of pneumonia - As noted above, respiratory function essentially returned to baseline at time of DC. Pt DC'd with plan to continue home medications and complete steroid course. 4. Type 2 Diabetes mellitus, chronically on home insulin on well controlled; Blood sugars initially severly elevated normlaizaed priort o DC. Home Lantus recommended on DC with plan to check BS in evening prior to admin and consider lower dosage (30U) for levels below 50U. I anticipate given pts home dosing, he does note adhere closely to diabetic diet at home, which accounts for this high level, and his now downward trending blood sugars while on DM diet in hospital. NO othewr concerns however, hA1C taken recently noted to have been at goal. Exam Vital Signs (Last) Date Time Temp Pulse Resp B/P Pulse Ox O2 Delivery O2 Flow Rate FiO2 05/09/16 08:30 Supplement Oxygen 05/09/16 04:53 36.3 60 18 155/88 94 1.50 Exam General: Alert, Mild Distress Mouth: Mucous Membranes Dry Chest & Lungs: Clear to auscultation & percussion, Other (expiraotry wheezes, of lesser intensity than previous. good airflow noted in all lung scott. ) Abdomen: Non-tender Extremities: No cyanosis/clubbing/edma bilat Test 05/06/16 15:36 05/06/16 17:25 05/06/16 17:33 05/07/16 00:46 Troponin T 0.016ug/L (0.0-0.011) Pro-B-Type Natriuretic Peptide 2033pg/mL (0-486) Urine Legionella pneumophilia Ag Negative (Negative) Urine Color Yellow (YELLOW) Urine Appearance Clear (CLEAR,HAZY) Urine pH 5.5 (5.0-8.0) Urine Specific [place] 1.020 (1.003-1.035) Urine Protein Negativemg/dL (NEG,TRACE) Urine Glucose (UA) >1000mg/dL (NEGATIVE) Urine Ketones Negativemg/dL (NEGATIVE) Urine Occult Blood Small (NEGATIVE) Urine Nitrite Negative (NEGATIVE) Urine Bilirubin Negative (NEGATIVE) Urine Urobilinogen Normalmg/dL (NORMAL) Urine Leukocyte Esterase Trace (NEGATIVE) Urine RBC 0-2/hpf (0-2) Urine WBC >50/hpf (0-5) Urine Epithelial Cells Few/hpf (NONE-MOD) Urine Crystals None seen (NONE SEEN) Urine Bacteria Many/hpf (NONE-FEW) Urine Hyaline Casts None/lpf (NONE) Urine Granular Casts None seen (NONE SEEN) Urine Waxy Casts None seen (NONE SEEN) Urine Red Blood Cell Casts None seen (NONE SEEN) Urine White Blood Cell Casts None seen (NONE SEEN) Urine Mucus None seen (None Seen) Urine Trichomonas None seen (NONE SEEN) Urine Yeast None (NONE SEEN) Urinalysis Comment None Urine Culture Reflexed Indicated Ketones Negative (Negative) Test 05/07/16 21:07 05/08/16 04:43 05/09/16 05:19 Vancomycin Level Trough 6.5mcg/mL Lactic Acid Level 0.9mmol/L (0.4-2.0) White Blood Count 10.2th/mm3 (3.8-10.1) Red Blood Count 4.83mil/mm3 (4.40-5.80) Hemoglobin 14.3g/dL (13.8-17.2) Hematocrit 42.9% (41.0-50.0) Mean Corpuscular Volume 88.8fL (81-100) Mean Corpuscular Hemoglobin 29.6pg (27.0-35.0) Mean Corpuscular Hemoglobin Concent 33.3% (32.0-37.0) Red Cell Distribution Width 13.1% (12.3-15.4) Platelet Count 319bil/L (150-400) Neutrophils (%) (Auto) 75.4% (40-74) Lymphocytes (%) (Auto) 11.9% (14-46) Monocytes (%) (Auto) 12.1% (4-12) Eosinophils (%) (Auto) 0.1% (0-5) Basophils (%) (Auto) 0.1% (0-3) Sodium Level 142mEq/L (134-144) Potassium Level 4.3mEq/L (3.5-5.2) Chloride Level 104mEq/L (97-108) Carbon Dioxide Level 24mmol/L (18-29) Blood Urea Nitrogen 38mg/dL (8-27) Creatinine 1.02mg/dL (0.76-1.27) Estimat Glomerular Filtration Rate 73mL/min (>59) Glucose Level 115mg/dL (60-99) Calcium Level 8.4mg/dL (8.5-10.1) Total Bilirubin 0.2mg/dL (0.0-1.2) Aspartate Amino Transf (AST/SGOT) 33U/L (0-50) Alanine Aminotransferase (ALT/SGPT) 33U/L (0-44) Alkaline Phosphatase 102U/L (25-160) Total Protein 6.5g/dL (6.4-8.4) Albumin 3.1g/dL (3.4-5.0) Procalcitonin 0.09ng/mL (See Comment) Microbiology Results Urine culture: Klebsiella pneumoniae Sputum culture: Strep pneumoniae Discharge Medications Discharge Medications ([centrum silver]) DAILY (Reported) ([vitamin C]) DAILY (Reported) Amoxicillin/Clav K 875-125 mg (Augmentin 875-125 mg) 1 Each Tablet 1 TABLET PO BID Prescribed by: NATHEN BRIDGES DO Aspirin (Aspir 81) 81 Mg Tablet.dr 81 MG PO DAILY (Reported) Fluticasone Propionate (Flovent HFA 110 mcg) 12 Gm Aer.w.adap 1 PUFF IH BID ( Reported) Glucosamine (Glucosamine) 500 Mg Tablet 500 MG PO DAILY (Reported) Hydrochlorothiazide (Hydrochlorothiazide) 25 Mg Tablet 25 MG PO DAILY (Reported ) Insulin Glargine (Lantus U100 Solostar Insulin Pen) 100 Unit/1 Ml Insuln.pen 50 UNIT SUBQ DAILY (Reported) Lovastatin (Lovastatin) 20 Mg Tablet 20 MG PO HS (Reported) [place]-3 Fatty Acids/Fish Oil (Fish Oil 1,200 mg Softgel) 1 Each Capsule 1 EACH PO DAILY (Reported) Prednisone (Deltasone) 20 Mg Tablet 20 MG PO DAILY Prescribed by: NATHEN BRIDGES DO As needed Insulin NPL/Insulin Lispro (HumaLOG 50/50 Insulin Kwikpen) 100 Unit/1 Ml Insuln.pen 1 UNIT SUBQ ACHS PRN PRN Hypoglycemia (Reported) Miscellaneous Medications Salmeterol Xinafoate (Serevent Diskus) 50 Mcg/Puff Inhaler 1,400 MCG IH ( Reported) Additional med instructions Complete antibiotic course and steroid course. Take all prescribed medications until complete Please check blood sugar in evening prior to administration of Lantus 50U HS. Consider lower dosage (30 units) for blood sugar less than 100. Call PCP with further questions if needed. Followup Plan Disposition: HOme Follow-up plan Complete antibiotic and steroid courses. FU with PCP in 1 week, sooner if condition worsens. Discharge Diet: No restrictions, Diabetic Discharge Activity: Limited until seen by PCP Follow-up Provider: Bandar Gutierrez DO Follow-up with PCP in: 1 week Time spent 50 minutes copies to: Bandar Gutierrez Benjamin P DO May 09, 2016 10:48
[2016-05-09] MEDS: cefTRIAXone Inj 2,000 MG in Dextrose 5% Minibag Plus 50 ML IV SCH (12:33)
[2016-05-09] MEDS ORDERED: PRE20 PO (13:29)
[2016-05-09] MEDS ORDERED: AGM875T PO (13:29)
--- NOTE | 2016-05-09 15:00 | NUR ---
Discharge Pt left with family in stable condition with all belongings at 1415, IV d/c'd, prescriptions given, instructions for scheduling follow up appointment given, teaching done on blood sugar control and antibiotic compliance. MD talked with family prior to discharge to answer questions about antibiotic regime.
[2016-05-09] MEDS ORDERED: Insulin GLARgine 100 Unit/mL Syringe SUBQ SCH (21:00)
== END 2016-05-09 14:13 | disposition home or self-care (01) | DRG 194 ==
LOC: SED 14:41 → OSC 17:09
PROVIDERS: ADMIT Family Medicine; ATTEND Family Medicine
DX: J13 Pneumonia due to Streptococcus pneumoniae (principal); J44.1 Chronic obstructive pulmonary disease with (acute) exacerbation; N39.0 Urinary tract infection, site not specified; I10 Essential (primary) hypertension; E78.5 Hyperlipidemia, unspecified; Z79.4 Long term (current) use of insulin; B96.1 Klebsiella pneumoniae [K. pneumoniae] as the cause of diseases classified elsewhere; E11.65 Type 2 diabetes mellitus with hyperglycemia; Z87.891 Personal history of nicotine dependence; Z66 Do not resuscitate

== ENCOUNTER 2016-07-26 02:34 | Inpatient (IN) | payer MEDICARE ==
[~2016-07-26] VITALS: Ht 182.9 cm; Wt 72.6 kg
[2016-07-26] VITALS (16 sets, daily range): BP systolic 92–135; BP diastolic 58–73; PULSE 73–100; RESP 15–29; O2SAT 84–95
[~2016-07-26 02:34] MED LIST changes: +AGM875T PO; -ALBU8.5H2 IH; -ASP81TEC; +GLUC500T12 PO; -INS7030U SQ; -INSLIS SQ; -INSU100I13 SUBQ; +INSU100I17 SUBQ; -LISI10TA2 PO; -LISI10TA9 PO; -LOVA20TA7 PO; -NPH,100V SQ; +OMEG1CAP99 PO; +PRE20 PO; +SALM50DI IH
--- NOTE | 2016-07-26 02:46 | ED.REPORT ---
HPI-Syncope Date of Service Jul 26, 2016 ED Provider: Juaquin Pardo MD Patient is an 89 year old male with a history of hypertension, COPD, and diabetes mellitus who presents to the ED via EMS following an episodes of weakness just prior to arrival The patient got up from bed to go to the bathroom this morning and became very weak. He was unable to get up from the toilet and walk back to his bed. His found the patient sitting on the toilet, leaning over with his head in his lap. The patient denies loss of consciousness. The patient's daughter, who lives across the street, was called over to assist the patient. He was able to return to his bed with assistance. Per the patient's , the patient had decreased appetite, sounded "wheezy" with labored breathing. He has also been diaphoretic. Patient states that he has a chronic cough and that it is not currently any different. The patient denies nausea, vomiting, chest pain, palpitations, dizziness, or cold-like symptoms. He is a former smoker. Nursing Notes Stated Complaint: SYNCOPAL Nursing Notes Reviewed: Yes Allergies: Coded Allergies: No Known Allergies (Verified , 05/07/16) Scheduled ([centrum silver]) DAILY ([vitamin C]) DAILY Amoxicillin/Clav K 875-125 mg (Amoxicillin/Clav K 875-125 mg) 875 Mg Tab 1 TABLET PO BID Aspirin (Aspir 81) 81 Mg Tablet.dr 81 MG PO DAILY Fluticasone Propionate (Flovent HFA 110 mcg) 12 Gm Aer.w.adap 1 PUFF IH BID Glucosamine (Glucosamine) 500 Mg Tablet 500 MG PO DAILY Hydrochlorothiazide (Hydrochlorothiazide) 25 Mg Tablet 25 MG PO DAILY Lovastatin (Lovastatin) 20 Mg Tablet 20 MG PO HS [place]-3 Fatty Acids/Fish Oil (Fish Oil 1,200 mg Softgel) 1 Each Capsule 1 EACH PO DAILY Prednisone (PredniSONE) 20 Mg Tablet 20 MG PO DAILY Scheduled PRN Insulin NPL/Insulin Lispro (HumaLOG 50/50 Insulin Kwikpen) 100 Unit/1 Ml Insuln.pen 1 UNIT SUBQ ACHS PRN PRN Hypoglycemia Miscellaneous Medications Salmeterol Xinafoate (Serevent Diskus) 50 Mcg/Puff Inhaler 1,400 MCG IH General Time Seen by Provider: 02:53 Chief Complaint Other (weakness) Hx Obtained From: Patient Arrived By: Walk-in Onset Occurred: Just prior to arrival Symptom Duration: Since onset Severity: Current: No pain currently Severity: Maximum: No pain Recent Healthcare: No recent hospitalization, Recent doctor visit Past Medical History Past Medical History Emphysema (not on home O2) ho Pneumonia Chronic left bundle-branch block Pericarditis in 2007 Gallstone pancreatitis in 1998 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 Reports: COPD, Diabetes mellitus, Hyperlipidemia, Hypertension Past Surgical History Cardiac catheterization hernia repair Reports: Cholecystectomy, Prostatectomy Family History Noncontributory Smoking History Former Smoker Social History The patient does not normally drink alcohol but reports drinking alcohol yesterdat (03/14/15) Drug Use: Denies drug use Other Social History: Good social support, , Local resident Ambulatory Status Independent Review of Systems Review of Systems Note: + labored breathing Constitutional: Reports: Weakness - generalized Respiratory: Reports: Non-productive cough (chronic), Wheezing Cardiovascular: Denies: Chest pain, Palpitations GI: Denies: Nausea, Vomiting Skin: Reports Diaphoresis Neurologic: Reports: Weakness, Denies: Change LOC, Dizziness Complete sys rev & neg: except as marked. Physical Exam Initial Vital Signs Vital Signs (First) Date Time Temp Pulse Resp B/P Pulse Ox O2 Delivery O2 Flow Rate FiO2 07/26/16 02:49 36.9 100 22 112/64 84 Room Air 07/26/16 02:52 6 Initial VS: Reviewed, Vital signs normal General/Constitutional: Awake, Alert jovial Respiratory / Chest: No rales, No rhonchi Diminished Breath Sounds: Positive: Decreased bilateral (distant) Wheezing / Retractions: Positive: Wheezing mild (few wheezes) Cardiovascular: Heart rate NL, Regular rhythm, Heart sounds NL, No murmurs Lower Extremity / Pelvis / MS: Atraumatic, No edema Neurologic: Oriented X3, Speech NL, No motor deficits, No sensory deficits Head / Eyes: Normocephalic, PERRL, EOMI ENT: Airway patent, Mucous membranes moist Neck: Supple, No JVD Abdomen: Soft, Non-tender Skin: Color NL, Warm, Dry Psychiatric: Affect NL, Mood NL Upper Extremity / MS: No edema Interpretation & Diagnostics Lab Results Interpretation Result Diagram: 07/26/16 0325 07/26/16 0325 Test 07/26/16 03:00 07/26/16 03:25 Urine Color Yellow (YELLOW) Urine Appearance Clear (CLEAR,HAZY) Urine pH 5.0 (5.0-8.0) Urine Specific [place] 1.030 (1.003-1.035) Urine Protein 100mg/dL (NEG,TRACE) Urine Glucose (UA) 250mg/dL (NEGATIVE) Urine Ketones Negativemg/dL (NEGATIVE) Urine Occult Blood Negative (NEGATIVE) Urine Nitrite Negative (NEGATIVE) Urine Bilirubin Negative (NEGATIVE) Urine Urobilinogen Normalmg/dL (NORMAL) Urine Leukocyte Esterase Negative (NEGATIVE) Urine RBC 3-10/hpf (0-2) Urine WBC 0-5/hpf (0-5) Urine Epithelial Cells Many/hpf (NONE-MOD) Urine Crystals Uric acid crystals (NONE Urine Bacteria Few/hpf (NONE-FEW) Urine Hyaline Casts None/lpf (NONE) Urine Granular Casts None seen (NONE SEEN) Urine Waxy Casts None seen (NONE SEEN) Urine Red Blood Cell Casts None seen (NONE SEEN) Urine White Blood Cell Casts None seen (NONE SEEN) Urine Mucus None seen (None Seen) Urine Trichomonas None seen (NONE SEEN) Urine Yeast None (NONE SEEN) Urine Culture Reflexed Not indicated White Blood Count 20.4th/mm3 (3.8-10.1) Red Blood Count 5.37mil/mm3 (4.40-5.80) Hemoglobin 16.0g/dL (13.8-17.2) Hematocrit 47.8% (41.0-50.0) Mean Corpuscular Volume 89.0fL (81-100) Mean Corpuscular Hemoglobin 29.8pg (27.0-35.0) Mean Corpuscular Hemoglobin Concent 33.5% (32.0-37.0) Red Cell Distribution Width 14.5% (12.3-15.4) Platelet Count 168bil/L (150-400) Neutrophils (%) (Auto) 87.1% (40-74) Lymphocytes (%) (Auto) 4.7% (14-46) Monocytes (%) (Auto) 7.8% (4-12) Eosinophils (%) (Auto) 0% (0-5) Basophils (%) (Auto) 0.1% (0-3) Prothrombin Time 10.9sec (8.1-12.5) Prothromb Time International Ratio 1.02ratio Sodium Level 136mEq/L (134-144) Potassium Level 3.6mEq/L (3.5-5.2) Chloride Level 99mEq/L (97-108) Carbon Dioxide Level 20mmol/L (18-29) Blood Urea Nitrogen 43mg/dL (8-27) Creatinine 1.40mg/dL (0.76-1.27) Estimat Glomerular Filtration Rate 51mL/min (>59) Glucose Level 182mg/dL (60-99) Lactic Acid Level 1.3mmol/L (0.4-2.0) Calcium Level 8.7mg/dL (8.5-10.1) Magnesium Level 2.3mg/dL (1.6-2.6) Total Bilirubin 0.5mg/dL (0.0-1.2) Aspartate Amino Transf (AST/SGOT) 24U/L (0-50) Alanine Aminotransferase (ALT/SGPT) 27U/L (0-44) Alkaline Phosphatase 120U/L (25-160) Troponin T 0.017ug/L (0.0-0.011) Pro-B-Type Natriuretic Peptide 1775pg/mL (0-486) Total Protein 7.1g/dL (6.4-8.4) Albumin 3.6g/dL (3.4-5.0) Lipase 4U/L (13-60) Lab Results Interpretation: Markedly elevated white blood count, CKI, elevated random glucose ECG Interpretation ECG Interpretation: old LBBB Time: 03:18 Interpreted by: ED physician Normal ECG Interpretation: Normal rate (95), Normal sinus rhythm X-Ray Chest Interpretation Chest Xray Interpretation: multiple areas of chronic scaring possible infiltrate medially at the right base widened mediasteinum, torturous aorta, maybe increasing from previous View: Portable, 1 view Interpretation / Wet Read by: Wet read ED physician CT Chest Interpretation IMPRESSION: Sequela of chronic obstructive lung disease. Partial consolidation at the right lung base may represent infection. Bilateral lung nodles ranging from 3-10mm in size. Radiologist: Trung Guevara MD 07/26/2016 - 5:15:50 AM PDT Study type: Chest CT no contrast Interpretation / Wet Read by: Interpret - Radiologist Re-Eval/Medical Decision Med Decision/Clinical Course 89-year-old male who is felt weak and unsteady. He has not had any specific localizing symptoms. He was found to have an elevated white blood count and a right lower lobe pneumonia. He will be admitted to the hospitalist service. Source of Hx: Old records Re-Evaluation/Progress : Time of Eval: 04:54 Patient Status: Condition improved Re-Evaluation/Progress Note: Rechecked the patient and his family. They were informed of the lab abnormalities and the need for hospital admission. Patient will need a CT scan of his chest. They understand and agree with this plan. All questions were addressed. Consultation : Referral / Consult Name: Akila Amos DO Consulted With: Hospitalist Call Returned at: 04:32 Press Hand: Will see patient, Agrees with eval, Agrees with plan, Accepts admit Note: Spoke with Dr. Amos, hospitalist, who agrees to accept admit. She requests a CT scan of his chest. Counseled Regarding: Diagnosis, Lab results, Need for admission Discharge & Departure Impression: Primary Impression: Pneumonia Pneumonia type: due to unspecified organism Laterality: right Lung location : lower lobe of lung Qualified Code: J18.1 - Lobar pneumonia, unspecified organism Additional Impression: Leukocytosis Leukocytosis type: unspecified Qualified Code: D72.829 - Elevated white blood cell count, unspecified Disposition: ADMITTED TO HOSPITAL Discharge Condition All VS Reviewed: Yes Condition: Stable Referrals: Bandar Gutierrez DO (PCP) Scribe Attestation Portions of this note were transcribed by Gabriela Mercedes and Steff Guerrero. I, Dr. Pardo personally performed the history, physical exam and medical decision-making; I reviewed and confirmed the accuracy of the information in the transcribed note. Signed by: Gabriela Mercedes and Steff Guerrero, Jerricaibe, and [id number]. copies to: Bandar Gutierrez Howard L MD Jul 26, 2016 02:46 Sylvia Mercedes Jul 26, 2016 03:02 Steff Guerrero Jul 26, 2016 04:16
[2016-07-26] MEDS ORDERED: 0.9% Sodium Chloride 1,000 ML IV ONE (02:58)
[2016-07-26] MEDS ORDERED: Ondansetron 2 mg/mL 2 mL Inj IV PRN (03:00)
[2016-07-26 03:29] LABS: APPEARANCE,URINE CLEAR (CLEAR,HAZY); COLOR,URINE YELLOW (YELLOW)
[2016-07-26 03:30] LABS: OCCULT BLOOD,URINE NEGATIVE (NEGATIVE); UROBILINOGEN,URINE NORMAL (NORMAL)
[2016-07-26 03:40] LABS: BASOPHILS % (AUTO) 0.1 % (0-3); EOSINOPHILS % (AUTO) 0 % (0-5); MONOCYTES % (AUTO) 7.8 % (4-12); Mean Corpuscular Hemoglobin 29.8 pg (27.0-35.0); NEUTROPHILS % (AUTO) 87.1 % (40-74); Platelet Count 168 bil/L (150-400)
[2016-07-26 03:58] LABS: INR 1.02 ratio
[2016-07-26 04:04] LABS: TROPONIN T 0.017 ug/L (0.0-0.011)
[2016-07-26 04:15] LABS: Magnesium 2.3 mg/dL (1.6-2.6)
[2016-07-26] MEDS ORDERED: Polyethylene Glycol (PEG) 17 Gm Powder PO PRN (04:40)
[2016-07-26] MEDS ORDERED: Alum-Mag Hydrox-Simeth 30 mL Suspension PO PRN (04:40)
[2016-07-26] MEDS ORDERED: Ondansetron 2 mg/mL 2 mL Inj IVPUSH PRN (04:40)
[2016-07-26] MEDS ORDERED: Glucose 40% Oral Gel 15 Gm Tube PO PRN (06:25)
--- NOTE | 2016-07-26 06:30 | PCM.HPMED ---
Subjective Date of Service Jul 26, 2016 Primary Provider: Admitting Physician: Akila Amos DO Primary Care Physician: Bandar Gutierrez DO Attending Physician: Akila Amos DO Admit Status: From the Emergency Department Chief Complaint: Syncope History of Present Illness: 89y/o male with a history of hypertension, COPD and DM type2 who presents to the ED following a near syncopal episode earlier this morning. Admitted for further management and evaluation of elevated troponin, hypoxia and possible HCAP. Patient admitted to [facility] in April and treated for community acquired pneumonia and acute UTI. Per the patient and his family he was temporarily on supplemental oxygen following discharge and finished his antibiotics. He was otherwise doing well and for all intensive purposes completely recovered until yesterday when reported fatigue, generalized weakness and increased shortness of breath. According to his the patient did not lose consciousness and was not more confused but she notes significant weakness, diaphoresis, hyperglycemia and lethargy. Patient and family deny change in cognition, slurred speech, or focal weakness. Patient states that his chronic non- productive cough is at baseline and he notes shoulder as well as back pain. He denies chest pain, palpitations, nausea or vomiting, abdominal pain, diarrhea, constipation, or urinary symptoms. In the ED, vitals: 36.9, BP 112/64, pulse 100, RR 22, 84% 6L nasal cannula. Labs : wbc 20.4, H/H 16.0/47.8, plts 168, sodium 136, potassium 3.6, chloride 99, bicarb 20, BUN 43, creatinine 1.40, serum glucose 182, lactic acid 1.3, troponin 0.017, proBNP 1775, UA neg leukocyte esterase, neg nitrite, neg pyruia , +glucose, hematuria, uric acid crystals, few bacteria. EKG showing NSR with rate 95, old LBBB unchanged from prior EKGs. CT chest revealed chronic changes consistent with COPD and possible consolidation at the right lung base. Review of Systems: A comprehensive review of systems was conducted with the patient and found to be negative except as above in the History of Present Illness. Allergies Coded Allergies: No Known Allergies (Verified , 05/07/16) Home Medications Hydrochlorothiazide 25mg daily Lovastatin 20mg qHS Aspirin 81mg daily Vitamin C supplement Humalog 75/25, 24units twice daily Glucosamine daily Nell[place]-3 Fatty Acids/Fish Oil 1,200 mg 1 EACH PO DAILY Prednisone 20 MG PO DAILY Insulin NPL/Insulin Lispro 100 Unit/1 Ml Insuln.pen 1 UNIT SUBQ ACHS PRN Hypoglycemia Salmeterol Xinafoate 50 Mcg/Puff Inhaler 1,400 MCG IH Amoxicillin/Clav K 875 Mg Tab 1 TABLET PO BID Fluticasone Propionate 12 Gm Aer.w.adap 1 PUFF IH BID PMH Diabetes mellitus, type 2 (insulin using) Emphysema (not on home O2) Chronic left bundle-branch block COPD Hyperlipidemia Hypertension Hx of Pneumonia 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 Pericarditis in 2007 Gallstone pancreatitis in 1998 Surgical History Prostatectomy in 2007 Cholecystectomy in 1998 Hernia repair Family History His father of emphysema Social History Occupation: Retired. Former , work Hx Alcohol Use: Yes (1-2 alcoholic drinks per year, endorses drinking yesterday ) Hx Substance Use: No Hx Tobacco Use: Yes Smoking Status: Former Smoker (Quit smoking 40 years ago. Smoked 1 pack/day for 25 years) Years of Smokin Living Arrangement: with Family Additional Information Lives locally with his , ambulates independently at baseline. Not on supplemental home oxygen. Exam Vital Signs Vital Sign - Last Date Time Temp Pulse Resp B/P Pulse Ox O2 Delivery O2 Flow Rate FiO2 07/26/16 02:52 97 29 89 Nasal Cannula 6 07/26/16 02:49 36.9 112/64 Exam General: Elderly male patient sitting up in bed, nasal cannula in place. No acute distress. Awake, alert and oriented. HEENT: Normocephalic, atraumatic. External ears without defect. Anicteric sclerae. Moist mucus membranes. Neck: No JVD or lymphadenopathy Cardiovascular: Regular rate and rhythm without murmurs, rubs, or gallops appreciated Pulmonary: Normal respiratory effort, no use of accessory muscles. lung sounds diminished w/ diffuse wheezing, breath sounds at right base. No conversational dyspnea. Abdomen: Normoactive bowel tones. Soft, nontender, nondistended. No hepatosplenomegaly or masses appreciated. Extremities: No clubbing, cyanosis, or edema present. Thin extremities. Skin: Normal temperature, turgor, and texture; no rash.. Neurological: Cranial nerves grossly intact. Normal muscle strength, tone, and bulk. No known gait impairment. Psychiatric: Normal mood and affect. Lymphatic: no cervical or supraclavicular lymphadenopathy on palpation Musculoskeletal: no erythema / edema of joints, Lab and Diagnostics Labs Laboratory Tests Test 07/26/16 03:00 07/26/16 03:25 Urine Color Yellow (YELLOW) Urine Appearance Clear (CLEAR,HAZY) Urine pH 5.0 (5.0-8.0) Urine Specific [place] 1.030 (1.003-1.035) Urine Protein 100mg/dL (NEG,TRACE) Urine Glucose (UA) 250mg/dL (NEGATIVE) Urine Ketones Negativemg/dL (NEGATIVE) Urine Occult Blood Negative (NEGATIVE) Urine Nitrite Negative (NEGATIVE) Urine Bilirubin Negative (NEGATIVE) Urine Urobilinogen Normalmg/dL (NORMAL) Urine Leukocyte Esterase Negative (NEGATIVE) Urine RBC 3-10/hpf (0-2) Urine WBC 0-5/hpf (0-5) Urine Epithelial Cells Many/hpf (NONE-MOD) Urine Crystals Uric acid crystals (NONE Urine Bacteria Few/hpf (NONE-FEW) Urine Hyaline Casts None/lpf (NONE) Urine Granular Casts None seen (NONE SEEN) Urine Waxy Casts None seen (NONE SEEN) Urine Red Blood Cell Casts None seen (NONE SEEN) Urine White Blood Cell Casts None seen (NONE SEEN) Urine Mucus None seen (None Seen) Urine Trichomonas None seen (NONE SEEN) Urine Yeast None (NONE SEEN) Urine Culture Reflexed Not indicated White Blood Count 20.4th/mm3 (3.8-10.1) Red Blood Count 5.37mil/mm3 (4.40-5.80) Hemoglobin 16.0g/dL (13.8-17.2) Hematocrit 47.8% (41.0-50.0) Mean Corpuscular Volume 89.0fL (81-100) Mean Corpuscular Hemoglobin 29.8pg (27.0-35.0) Mean Corpuscular Hemoglobin Concent 33.5% (32.0-37.0) Red Cell Distribution Width 14.5% (12.3-15.4) Platelet Count 168bil/L (150-400) Neutrophils (%) (Auto) 87.1% (40-74) Lymphocytes (%) (Auto) 4.7% (14-46) Monocytes (%) (Auto) 7.8% (4-12) Eosinophils (%) (Auto) 0% (0-5) Basophils (%) (Auto) 0.1% (0-3) Prothrombin Time 10.9sec (8.1-12.5) Prothromb Time International Ratio 1.02ratio Sodium Level 136mEq/L (134-144) Potassium Level 3.6mEq/L (3.5-5.2) Chloride Level 99mEq/L (97-108) Carbon Dioxide Level 20mmol/L (18-29) Blood Urea Nitrogen 43mg/dL (8-27) Creatinine 1.40mg/dL (0.76-1.27) Estimat Glomerular Filtration Rate 51mL/min (>59) Glucose Level 182mg/dL (60-99) Lactic Acid Level 1.3mmol/L (0.4-2.0) Calcium Level 8.7mg/dL (8.5-10.1) Magnesium Level 2.3mg/dL (1.6-2.6) Total Bilirubin 0.5mg/dL (0.0-1.2) Aspartate Amino Transf (AST/SGOT) 24U/L (0-50) Alanine Aminotransferase (ALT/SGPT) 27U/L (0-44) Alkaline Phosphatase 120U/L (25-160) Troponin T 0.017ug/L (0.0-0.011) Pro-B-Type Natriuretic Peptide 1775pg/mL (0-486) Total Protein 7.1g/dL (6.4-8.4) Albumin 3.6g/dL (3.4-5.0) Lipase 4U/L (13-60) Result Diagram: 07/26/16 0325 07/26/16 0325 X-Rays, CTs and MRIs CT chest, official report pending at time of admission. Preliminary read showing evidence consistent with chronic obstructive lung disease, partial consolidation at the right lung base, bilateral lung nodules. Assessment & Plan 89yo male with history of hypertension, COPD and DM type2 who presents to the ED following a near syncopal episode earlier this morning. Admitted for further management and evaluation of elevated troponin as well as hypoxia and leukocytosis with findings on chest CT suspicious for HCAP. 1. Acute hypoxic respiratory failure, present on admission. Active. -Hx of COPD, not on home oxygen, hypoxia at presentation, CT chest concerning for consolidation at right lung base. -Likely secondary to HCAP, wbc 20.4 w/ left shift and recent [facility] admission in April 2016 for streptococcal pneumonia. -Supplemental oxygen, prn and titrate to 88-92% -Blood cultures x2 pending -MRSA screen, pending -IV zosyn to cover HCAP, will hold on vanco pending MRSA screen due to renal insufficiency -place on telemetry -DuoNebs q4h, albuterol q2h prn -Influenza screen, urine antigens pending CATARINA, POA -unclear etiology -avoid nephrotoxic agents -consider nephrology consult if not improved 2. Possible acute on chronic COPD exacerbation, present on admission. -Supplemental oxygen w/maintain sats between 88-92% -continue antibiotics, Duonebs as above. -oral Prednisone 40mg daily for 5 days 3. Elevated troponin, present on admission. Active -Patient denies CP/SOB. -EKG w/ NSR rate 95, LBBB unchanged from prior EKG. -troponin at presentation 0.017, will trend -proBNP 1775, Echocardiogram ordered 4. 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 Active. - Hgb A1c of 7.9% on 04/21/2016 per [facility] records - Blood glucose 182 on admission. - HbA1c pending - Medium correctional insulin ordered, Day team to address basal insulin pending med rec. 5. Hypertension (chronic), present on admission. Stable. - Continue home hydrochlorothiazide 6. Hyperlipidemia (chronic), present on admission. Presumed stable. - Continue statin therapy PRN: Acetaminophen-fever/headache/mild/moderate pain Antiemetics, as needed Bowel regimen, as needed. Disposition: Patient is admitted under inpatient status with expected length of stay greater than 2 midnights due to severity of presenting symptoms, risk of adverse event, and complexity of treatment plan. Pain Evaluation: Adequate Pain Control GI Prophylaxis: Not indicated VTE Prophylaxis Indicated: Meets Criteria for Anticoag Therapy VTE Prophylaxis: Sub-Q Heparin (Unfractionated) Resuscitation Status: DNR/DNI:Do Not Resuscitate/Intubate (Bipap okay) Attending Statement The patient was seen and examined together with house staff on 07/26/2016 and I agree with the history, exam and plan as outlined in the note above. Tiki Lang DO Jul 26, 2016 04:36 Akila Amos DO Jul 26, 2016 06:54
[2016-07-26] MEDS ORDERED: Albuterol 1.25 mg/3 mL Inhalation Solution NEB PRN (06:40)
[2016-07-26] MEDS ORDERED: 0.9% Sodium Chloride 250 ML ONE (07:20)
[2016-07-26] MEDS: Piperacillin-Tazo 3.375 Gm Inj 3.375 GM in Dextrose 5% Minibag Plus 50 ML IV SCH ×2 (07:24→18:29)
--- NOTE | 2016-07-26 07:28 | NUR ---
Admit note: Pt admitted from ER, able to ambulate with assist from gurney to bed. Slightly unsteady on feet, reported weakness. Pt is alert and oriented, [place]. Reports some shortness of breath, although denies increased SOB with activity. Is on 6L NC, 93% upon arrival; does not use oxygen at baseline. MRSA and Rapid flu swab sent to lab. Talked with pt and daughter about plan of care for the morning. Oriented to room and call light, bed alarm activated for pt safety.
[2016-07-26] MEDS: Insulin LISPRO 300 Unit/3 mL Inj SUBQ SCH ×4 (08:00→22:17)
--- NOTE | 2016-07-26 08:30 | DRSVH ---
PROCEDURE: CT CHEST WITHOUT CONTRAST ([id number]) INDICATIONS: FEVER, SYNCOPE TECHNIQUE: Noncontrast 5 mm thick sections acquired from the pulmonary apices to the posterior costophrenic angl es. 7 mm thick coronal and sagittal MIP reformats were then acquired. For radiation dose reduction, the following was used: automated exposure control, adjustment of mA and/or kV according to patient size. COMPARISON: [facility], CT, CHEST W/O CONTRAST, 01/30/2013, 16:19. FINDINGS: Image quality: Excellent. Lungs and pleura: Bilateral areas of nodular opacity are present, with the majority unchanged or less prominent when compared to 01/30/13. The medial right lower lobe nodule currently measures 11 mm com pared to 7 mm on prior exam. There is areas of moderate emphysematous changes as well as peribronchia l thickening, unchanged versus minimally progressive compared to prior exam. 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 However, there is a mild appearance of increased opacity within the right base when compare d to prior exam. Mediastinum: Heart size is normal. No pericardial effusion. No mediastinal adenopathy by size crit eria. Thoracic aorta and central pulmonary arteries are normal in size. Esophagus is normal in terrence rashawn. Mild hiatal hernia. Bones and chest wall: No suspicious bony lesions. No vertebral body compression fractures. No axil christopher or supraclavicular adenopathy by size criteria. Thyroid gland is unremarkable. Abdomen: Visualized upper abdominal solid organs and bowel loops appear normal in the absence of con trast. IMPRESSION: 1. Emphysematous changes with peribronchial thickening, as described above. 2. Scattered areas of parenchymal opacity with more prominent appearance in the right lower lobe. Thi s could represent superimposed acute infection such as pneumonia. 3. Bilateral pulmonary nodules, with the majority unchanged, with the exception of interval increase in size since 2012 of the right lower lobe nodule as above. Given interval increase in size, 6 month imaging followup is recommended to document continued stability. The above findings are concordant with [employer] preliminary report. Dictated by: Linnette Parnell M.D. on 07/26/2016 at 8:14 Approved by: Linnette Parnell M.D. on 07/26/2016 at 8:28
[2016-07-26] MEDS: Heparin 5,000 Unit/mL Inj SUBQ SCH ×2 (08:45→17:40)
--- NOTE | 2016-07-26 09:08 | DRSVH ---
PROCEDURE: X-RAY CHEST ONE VIEW, PORTABLE ([id number]) INDICATIONS: weakness TECHNIQUE: One view of the chest was acquired. COMPARISON: [facility], CT, CT CHEST WO CON, 07/26/2016, 4:56. FINDINGS: Surgical changes and devices: None. Lungs and pleura: No pleural effusions or pneumothorax. Lungs are clear, aside from interstitial pr ominence. No focal lung consolidation. Lung volumes are increased with flattening of the hemidiaphr agms suggesting COPD. Mediastinum: Mediastinal contours appear normal. Heart size is normal. Bones and chest wall: No suspicious bony lesions. Overlying soft tissues appear unremarkable. IMPRESSION: Underlying COPD likely present and interstitial prominence not significantly changed. No definite acute cardiopulmonary process. Dictated by: Freddie Ayoub [facility] Interpreted: Kathy Mcmillan MD on 07/26/2016 at 9:06 Transcribed by: KATIA on 07/26/2016 at 9:07 Approved by: Kathy Mcmillan MD, PhD on 07/26/2016 at 17:17
[2016-07-26] MEDS ORDERED: ASPI-973 PO (10:14)
[2016-07-26] MEDS ORDERED: INSU100I16 SUBQ (10:46)
[2016-07-26] MEDS ORDERED: GLUC-120 PO (10:46)
[2016-07-26] MEDS ORDERED: OMEG1CAP15 PO (10:46)
[2016-07-26] MEDS ORDERED: ASCO100089 PO (10:46)
[2016-07-26] MEDS ORDERED: MULT-1052 PO (10:46)
[2016-07-26] MEDS ORDERED: GLUC1KIT IM (10:46)
--- NOTE | 2016-07-26 10:58 | NUR ---
[facility] signed
[2016-07-26] MEDS: Albuterol-Ipratropium 3 mL Inhalation Solution NEB SCH ×3 (11:15→20:00)
--- NOTE | 2016-07-26 14:22 | DRSVH ---
[facility] [address] [place] [address] Echocardiogram Report Name: MAY GEORGES PStudy Date: 07/17 Height: 72 in Hospital Exam Location: [facility] Weight: 159 lb Gender: Male BSA: 1.9 m2 : 1925 Age: 89 yrs BP: 113/73 mmHg Reason For Study: SOB Ordering Physician: HOSPITALIST [facility] Performed By: Dimitrios Bowman Referring Physician: LAVON BRAN Interpretation Summary 1) Mild concentric left ventricular hypertrophy with normal size, and systolic function (EF 55-60%). 2) Septal motion consistent with LBBB but no other wall motion abnormalities are present. 3) Grade 2 diastolic dysfunction (pseudonormalization) present. 4) Normal right ventricular size and function. 5) There is systolic anterior motion of the chordal apparatus. 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 6) No prior Echo available for comparison. Procedure: A two-dimensional transthoracic echocardiogram with color flow and Doppler was performed. The study quality was technically adequate. Parasternal images are difficult due to low parasternal window. There is no prior echocardiogram noted for this patient. The patient was in normal sinus rhythm during the exam. Left Ventricle: LV could not be reliably measured in parasternal long axis view. Apical views suggest mild to moderate concentric hypertophy and a small LV cavity. The echo findings are consistent with mild dynamic left ventricular outflow tract obstruction. There is mild concentric left ventricular hypertrophy. The ejection fraction is estimated to be 55-60%. Septal motion is consistent with conduction abnormality. Assessment of diastolic parameters suggests a pseudonormalization pattern, consistent with elevated filling pressures. Right Ventricle: The right ventricle is normal size. The right ventricular systolic function is normal. Atria: The left atrium is mildly dilated. The right atrium is normal in size. The interatrial septum is intact with no evidence for an atrial septal defect. Mitral Valve: There is systolic anterior motion of the chordal apparatus. There is mild mitral regurgitation. Aortic Valve: The aortic valve is trileaflet. The aortic valve is mildly calcified. There is no hemodynamically significant valvular aortic stenosis. No aortic regurgitation is present. Tricuspid Valve: The tricuspid valve is not well visualized, but is grossly normal. The right ventricular systolic pressure is estimated at 30 mmHg assuming a right atrial pressure of 3 mm Hg. Pulmonic Valve: The pulmonic valve is not well visualized. Great Vessels: The aortic root is normal size. The ascending aorta could not be visualized. The pulmonary artery is not well visualized, but is probably normal size. The IVC is of normal diameter and collapses greater than 50% with a sniff. This suggests a low right atrial pressure of 3 mm Hg. Pericardium/ Pleura There is no pericardial effusion. There is no pleural effusion. MMode/2D Measurements & Calculations RA long axis LVOT diam: 2.2 cm RVD1 (basal) LA A2 area: 24.5 cm Ao root diam : 3.2 cm LA A4 area: 19.3 cm LA length (vol) RA area: 13.2 cm RA vol: 33.7 ml LA vol: 80.3 ml RA : 17.4 ml/m2 LA vol index : 41.5 ml/m2 RVD2 (mid): 2.4 cm TAPSE: 1.3 cm Doppler Measurements & Calculations Ao V2 max MV E max artis MV E/A: 0.48 TR max artis : 217.9 cm/sec : 40.0 cm/sec Med Peak E' Artis : 261.3 cm/sec Ao max P.0 mmHg MV A max artis TR max PG Ao mean P.9 mmHg : 83.0 cm/sec E/E' med: 18.1 : 27.3 mmHg LVOT Max Artis Lat Peak E' Artis PA V2 max : 134.7 cm/sec : 163.8 cm/sec E/E' lat: 11.5 PA mean PG ZABRINA(I,D): 2.6 cm E/e' average : 6.4 mmHg sev ratio: 0.66 MV dec time: 0.13 sec Ao V2 mean LV V1 max PG PA V2 mean : 139.7 cm/sec : 123.0 cm/sec Ao V2 VTI: 36.7 cmLV V1 VTI: 24.3 cmPA pr(Accel) : 13.6 mmHg ZABRINA(V,D): 2.4 cm2 ZABRINA indexed to BSA (cm^2/m^2): 1.3 Reading Physician:02:20 PM
[2016-07-26] MEDS ORDERED: Insulin GLARgine 100 Unit/mL Syringe SUBQ SCH (21:00)
--- NOTE | 2016-07-26 22:59 | NUR ---
Respiratory, Blood sugar: Pt with a strong, congested cough. Productive with a small to moderate amount of yellow, thick sputum; sputum sample sent to lab. States breathing is doing "ok". SpO2 on 2L NC 88-92%. With moving in bed, pt did desat briefly to 86% with rapid recovery at rest. CPOX in place for SpO2 monitoring. Blood sugar tonight was 500. Pt did eat 100% of dinner tonight. Per report, sugars have been ~160s-170s while NPO during the day. Sliding scale insulin administered and a [employer] page was sent to the night hospitalist.
[2016-07-27] VITALS (12 sets, daily range): BP systolic 109–138; BP diastolic 63–69; PULSE 71–93; RESP 15–22; O2SAT 91–94
--- NOTE | 2016-07-27 01:23 | PCM.PNMED ---
Subjective Date of Service Jul 27, 2016 Subjective Patient is hungry and would like to eat. He has no other new complaints. He is beginning to feel little bit better and his breathing is less labored according to the his family. He does not remember much from the time he came into the hospital. But is more lucid now according to the family. Exam Vital Signs Vital Sign - Last Date Time Temp Pulse Resp B/P Pulse Ox O2 Delivery O2 Flow Rate FiO2 07/27/16 00:18 36.9 71 15 138/69 91 Nasal Cannula 2.00 Intake and Output 07/26/16 07/26/16 07/27/16 Cumulative From/Thru 15:00 23:00 07:00 07/26/16 02:49 - 07/26/16 18:10 Intake Total 487 ml 487 ml Output Total 400 ml 400 ml Balance 87 ml 87 ml Intake Oral 487 ml 487 ml Output Urine Total 400 ml 400 ml Exam Patient is lying supine in bed with head elevated approximately 30. He is in no apparent distress. HEENT: Head is atraumatic and normocephalic. Eyes: Pupils are equally round and reactive to light and accommodation. Extraocular muscles are intact. Sclera are white, anicteric. Subconjunctival mucosa is pink. Ears and nose are unremarkable. Oropharynx: There is no mucosal lesions, there is no thrush, there is no pharyngitis. Neck: Is supple, there are no nodes, or masses or tenderness. Chest: Is negative for bilateral crackles and wheezes. There are no rubs evident. Heart: Rate, rhythm is regular. There is a grade 2/6 systolic ejection murmur heard best at the left sternal border radiating to the apex. There is no rub or gallop appreciated Abdomen: Good bowel sounds are present. Abdomen is soft, nontender, no organomegaly or masses were appreciated. Extremities: Are symmetrical and well perfused. There is no edema, there is no cellulitis, no rash. Neurologic: There are no focal neurological deficits. Cranial nerves II through XII are intact. There are no sensory or motor deficits. Psychiatric: Patients mood is calm and shows no sign of agitation. Genital: Deferred Rectal: Deferred Lab and Diagnostics Result Diagram: 07/26/16 0325 07/26/16 0325 X-Rays, CTs and MRIs CT chest, official report pending at time of admission. Preliminary read showing evidence consistent with chronic obstructive lung disease, partial consolidation at the right lung base, bilateral lung nodules. Assessment & Plan The patient is a 89yo male with history of hypertension, COPD and DM type2 who presents to the ED following a near syncopal episode earlier this morning. Admitted for further management and evaluation of elevated troponin as well as hypoxia and leukocytosis with findings on chest CT suspicious for HCAP. 1. Acute hypoxic respiratory failure, present on admission. Active. -Hx of COPD, not on home oxygen, hypoxia at presentation, CT chest concerning for consolidation at right lung base. -Likely secondary to HCAP, wbc 20.4 w/ left shift and recent [facility] admission in April 2016 for streptococcal pneumonia. -Supplemental oxygen, prn and titrate to 88-92% -Blood cultures x2 pending -MRSA screen, pending -IV zosyn to cover HCAP, will hold on vanco pending MRSA screen due to renal insufficiency -place on telemetry -DuoNebs q4h, albuterol q2h prn -Influenza screen, urine antigens pending CATAR[place], POA -unclear etiology -avoid nephrotoxic agents -consider nephrology consult if not improved 2. Possible acute on chronic COPD exacerbation, present on admission. -Supplemental oxygen w/maintain sats between 88-92% -continue antibiotics, Duonebs as above. -oral Prednisone 40mg daily for 5 days 3. Elevated troponin, present on admission. Active -Patient denies CP/SOB. -EKG w/ NSR rate 95, LBBB unchanged from prior EKG. -troponin at presentation 0.017, will trend -proBNP 1775, Echocardiogram ordered 4. 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 Active. - Hgb A1c of 7.9% on 04/21/2016 per [facility] - Blood glucose 182 on admission. - HbA1c pending - Medium correctional insulin ordered, Day team to address basal insulin pending med rec. 5. Hypertension (chronic), present on admission. Stable. - Continue home hydrochlorothiazide 6. Hyperlipidemia (chronic), present on admission. Presumed stable. - Continue statin therapy PRN: Acetaminophen-fever/headache/mild/moderate pain Antiemetics, as needed Bowel regimen, as needed. Disposition: Patient is likely to be here another 48 hours for further evaluation treatment of the above conditions. Pain Evaluation: Adequate Pain Control GI Prophylaxis: Not indicated VTE Prophylaxis: Sub-Q Heparin (Unfractionated) VTE Mechanical Devices: Intermittant Pneumatic CD Resuscitation Status: DNR/DNI:Do Not Resuscitate/Intubate (Bipap okay) Raymundo Harris MD Jul 27, 2016 01:23
[2016-07-27] MEDS: Heparin 5,000 Unit/mL Inj SUBQ SCH ×3 (01:31→16:26)
[2016-07-27] MEDS ORDERED: Insulin LISPRO 300 Unit/3 mL Inj SUBQ ONE (05:15)
[2016-07-27] MEDS: Piperacillin-Tazo 3.375 Gm Inj 3.375 GM in Dextrose 5% Minibag Plus 50 ML IV SCH ×2 (05:34→18:22)
[2016-07-27 06:23] LABS: BASOPHILS % (AUTO) 0.3 % (0-3); EOSINOPHILS % (AUTO) 0.6 % (0-5); MONOCYTES % (AUTO) 8.5 % (4-12); Mean Corpuscular Hemoglobin 29.9 pg (27.0-35.0); Mean Corpuscular Volume 89.7 fL (81-100); NEUTROPHILS % (AUTO) 82.7 % (40-74); Platelet Count 137 bil/L (150-400)
[2016-07-27] MEDS: Albuterol-Ipratropium 3 mL Inhalation Solution NEB SCH ×4 (07:32→19:35)
[2016-07-27 07:51] LABS: ERYTHROCYTE SEDIMENTATION RATE 34 mm/hr (0-30)
[2016-07-27 08:07] LABS: Magnesium 2.2 mg/dL (1.6-2.6)
[2016-07-27] MEDS: Insulin LISPRO 300 Unit/3 mL Inj SUBQ SCH ×4 (08:07→21:01)
--- NOTE | 2016-07-27 11:28 | NUR ---
Social Work-initial assessment: Data:See initial assessment. Pt is an 89 y/o male who was admitted on 07/26/16 for weakness, elevated WBC trop per H&P. Pt's insurance is [employer] and PCP is Bandar Gutierrez. EMR Reviewed. Pt's readmission score is 5-high risk. SW met with pt, daughter at bedside to discuss discharge planning, SW role explained. Pt is alert and oriented x3. Pt resides at home in a 2 level home with 8 internal steps where pt remains independent with basic ADLs. Daughter lives across [facility] and reported she helps with meal prep and chores. Pt drives only very occasionally and uses a cane and walker. Pt has no HH or SNF history. Pt has not completed DPOA/ advanced directive and SW provided info to review and complete. Pt's family to provide transport home at discharge. SW provided phone number and plan on white board in room. SW will continue to follow. Assessment:Pt who resides at home with and is independent at baseline. Plan:Pt to likely discharge home wit no needs via POV. SW will continue to follow. STEFANI Olson Addendum: 07/27/16 at 1136 by JHONATAN JETER SS Amended: Links added.
[2016-07-27] MEDS: predniSONE 20 mg Tablet PO SCH (12:11)
--- NOTE | 2016-07-27 23:48 | PCM.PNMED ---
Subjective Date of Service Jul 27, 2016 Subjective Patient is beginning to feel little bit better. He has no new complaints. He still complaining of cough and some shortness of breath. His had no fainting spells and no further diaphoresis, nausea, vomiting or diarrhea. Exam Vital Signs Vital Sign - Last Date Time Temp Pulse Resp B/P Pulse Ox O2 Delivery O2 Flow Rate FiO2 07/27/16 20:57 Supplement Oxygen 07/27/16 20:57 36.6 74 18 126/67 93 1.50 Intake and Output 07/26/16 07/26/16 07/27/16 Cumulative From/Thru 15:00 23:00 07:00 07/26/16 02:49 - 07/27/16 06:11 Intake Total 487 ml 1140 ml 1627 ml Output Total 400 ml 1225 ml 1625 ml Balance 87 ml -85 ml 2 ml Intake Oral 487 ml 900 ml 1387 ml IV Total 240 ml 240 ml Output Urine Total 400 ml 1225 ml 1625 ml Exam Echocardiogram Report Name: MAY GEORGES PStudy Date: 07/17 Height: 72 in Hospital Exam Location: [facility] Weight: 159 lb Gender: Male BSA: 1.9 m2 : 1925 Age: 89 yrs BP: 113/73 mmHg Reason For Study: SOB Ordering Physician: HOSPITALIST [facility] Performed By: Dimitrios Bowman Referring Physician: LAVON BRAN Interpretation Summary 1) Mild concentric left ventricular hypertrophy with normal size, and systolic function (EF 55-60%). 2) Septal motion consistent with LBBB but no other wall motion abnormalities are present. 3) Grade 2 diastolic dysfunction (pseudonormalization) present. 4) Normal right ventricular size and function. 5) There is systolic anterior motion of the chordal apparatus. 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 6) No prior Echo available for comparison. Lab and Diagnostics Result Diagram: 07/27/1660407/27/16604 Microbiology Microbiology studies, including sputum cultures, nasal swabs, blood cultures are all unrevealing. X-Rays, CTs and MRIs CT chest, official report pending at time of admission. Preliminary read showing evidence consistent with chronic obstructive lung disease, partial consolidation at the right lung base, bilateral lung nodules. Cardiac Echo Impressions Echocardiogram Report Name: MAY GEORGES PStudy Date: 07/17 Height: 72 in Hospital Exam Location: [facility] Weight: 159 lb Gender: Male BSA: 1.9 m2 : 1925 Age: 89 yrs BP: 113/73 mmHg Reason For Study: SOB Ordering Physician: HOSPITALIST [facility] Performed By: Dimitrios Bowman Referring Physician: LAVON BRAN Interpretation Summary 1) Mild concentric left ventricular hypertrophy with normal size, and systolic function (EF 55-60%). 2) Septal motion consistent with LBBB but no other wall motion abnormalities are present. 3) Grade 2 diastolic dysfunction (pseudonormalization) present. 4) Normal right ventricular size and function. 5) There is systolic anterior motion of the chordal apparatus. 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 6) No prior Echo available for comparison. Assessment & Plan The patient is a 89yo male with history of hypertension, COPD and DM type2 who presents to the ED following a near syncopal episode earlier this morning. Admitted for further management and evaluation of elevated troponin as well as hypoxia and leukocytosis with findings on chest CT suspicious for HCAP. 1. Acute hypoxic respiratory failure, present on admission. Active. -Hx of COPD, not on home oxygen, hypoxia at presentation, CT chest concerning for consolidation at right lung base. - Possibly secondary to HCAP, wbc 20.4 w/ left shift and recent [facility] admission in April 2016 for streptococcal pneumonia. -Supplemental oxygen, prn and titrate to 88-92% -Blood cultures x2 pending -MRSA screen, pending -IV zosyn to cover HCAP, will hold on vanco pending MRSA screen due to renal insufficiency -place on telemetry -DuoNebs q4h, albuterol q2h prn -Influenza screen, urine antigens pending Acute renal failure, present on admission. Ongoing, with creatinine slightly improved today -unclear etiology -avoid nephrotoxic agents -consider nephrology consult if not improved 2. Possible acute on chronic COPD exacerbation, present on admission. Ongoing -Supplemental oxygen w/maintain sats between 88-92% -We will continue antibiotics, Duonebs as above. -We will continue oral Prednisone 20mg daily 3. Elevated troponin, present on admission. Active -Patient denies CP/SOB. -EKG w/ NSR rate 95, LBBB unchanged from prior EKG. -troponin at presentation 0.017, will trend -proBNP 1775, Echocardiogram ordered 4. 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 Active. - [facility] 7.9[facility] - Blood glucose 182 on admission. - HbA1c pending - Medium correctional insulin ordered, Day team to address basal insulin pending med rec. 5. Hypertension (chronic), present on admission. Stable. - Continue home hydrochlorothiazide 6. Hyperlipidemia (chronic), present on admission. Presumed stable. - Continue statin therapy PRN: Acetaminophen-fever/headache/mild/moderate pain Antiemetics, as needed Bowel regimen, as needed. Disposition: Patient is likely to be here another 48 hours for further evaluation treatment of the above conditions. Pain Evaluation: Adequate Pain Control GI Prophylaxis: Not indicated VTE Prophylaxis: Sub-Q Heparin (Unfractionated) VTE Mechanical Devices: Intermittant Pneumatic CD Resuscitation Status: DNR/DNI:Do Not Resuscitate/Intubate (Bipap okay) Raymundo Harris MD Jul 27, 2016 23:48
[2016-07-28] VITALS (14 sets, daily range): BP systolic 123–146; BP diastolic 64–75; PULSE 65–88; RESP 16–22; O2SAT 92–97
[2016-07-28] MEDS: Heparin 5,000 Unit/mL Inj SUBQ SCH ×3 (00:38→17:21)
[2016-07-28] MEDS ORDERED: 0.9% Sodium Chloride 250 ML ONE (01:08)
[2016-07-28] MEDS: Piperacillin-Tazo 3.375 Gm Inj 3.375 GM in Dextrose 5% Minibag Plus 50 ML IV SCH ×2 (05:55→18:12)
--- NOTE | 2016-07-28 06:18 | NUR ---
IV ANTIBIOTICS/BLOOD SUGARS Pt's Vanco was d/c'd due to [place], Zosyn started with no issues noted. Pt had an uneventful night, slept well SR 70's, 1.5L NC sating low 90's. Pt had 487 blood sugars and was given 7 units regular insulin. Pt expected to start Lantus in the AM. No other issues noted at this time.
[2016-07-28 06:38] LABS: BASOPHILS % (AUTO) 0.1 % (0-3); EOSINOPHILS % (AUTO) 0 % (0-5); MONOCYTES % (AUTO) 6.4 % (4-12); Mean Corpuscular Hemoglobin 29.9 pg (27.0-35.0); Mean Corpuscular Volume 89.7 fL (81-100); NEUTROPHILS % (AUTO) 85.9 % (40-74); Platelet Count 147 bil/L (150-400)
[2016-07-28] MEDS: Albuterol-Ipratropium 3 mL Inhalation Solution NEB SCH ×4 (07:35→20:00)
[2016-07-28] MEDS: predniSONE 20 mg Tablet PO SCH (08:51)
[2016-07-28] MEDS: Insulin LISPRO 300 Unit/3 mL Inj SUBQ SCH ×4 (08:58→21:48)
--- NOTE | 2016-07-28 10:59 | DRSVH ---
PROCEDURE: X-RAY CHEST, TWO VIEWS ([id number]) INDICATIONS: Follow up for pneumonia TECHNIQUE: 2 views of the chest were acquired. COMPARISON: [facility], CT, CT CHEST WO CON, 07/26/2016, 4:56. [facility], C R, XR CHEST 1VW (PORTABLE), 07/26/2016, 3:02. FINDINGS: Surgical changes and devices: None. Lungs and pleura: Bibasilar patchy airspace opacities present similar to prior CT scan otherwise inte rstitium is prominent as before. No pleural effusion or pneumothorax. Mediastinum: Mediastinal contours are normal. Heart size is normal. Bones and chest wall: No suspicious bony abnormalities. Soft tissues appear unremarkable. IMPRESSION: Bibasilar atelectasis versus aspiration or pneumonia similar to prior CT scan. Dictated by: Freddie MOE Interpreted: Linnette Parnell MD on 07/28/2016 at 10:57 Transcribed by: VALDEZ on 07/28/2016 at 10:59 Approved by: Linnette Parnell M.D. on 07/28/2016 at 22:19
[2016-07-28] MEDS: Insulin GLARgine 100 Unit/mL Syringe SUBQ SCH (11:15)
[2016-07-28] MEDS ORDERED: Insulin LISPRO 300 Unit/3 mL Inj SUBQ ONE ×2 (13:44→18:20)
--- NOTE | 2016-07-28 16:05 | NUR ---
Evaluation completed. Please go to "Notes" then click on "Assessments and Notes" (bottom left corner of screen). Then select appropriate discipline tab on top of screen.
--- NOTE | 2016-07-28 19:19 | NUR ---
Blood Sugar Patients blood sugars have been 474,454 ,354. He was started on Lantus insulin and nutritional insulin today. MD kristen will continue to monitor insuline and follow Pharmacy recommendations for insulin dosing.
[2016-07-29] VITALS (9 sets, daily range): BP systolic 131–145; BP diastolic 70–79; PULSE 61–79; RESP 16–20; O2SAT 87–95
[2016-07-29] MEDS: Heparin 5,000 Unit/mL Inj SUBQ SCH ×2 (00:31→08:42)
--- NOTE | 2016-07-29 00:42 | PCM.PNMED ---
Subjective Date of Service Jul 29, 2016 Subjective The patient is beginning to feel better. He has no new complaints. He has less cough and less shortness of breath. Exam Vital Signs Vital Sign - Last Date Time Temp Pulse Resp B/P Pulse Ox O2 Delivery O2 Flow Rate FiO2 07/29/16 00:19 36.9 61 20 131/70 94 Room Air 07/28/16 20:34 1.50 Intake and Output 07/28/16 07/28/16 07/29/16 Cumulative From/Thru 15:00 23:00 07:00 07/26/16 02:49 - 07/28/16 20:09 Intake Total 592 ml 3575 ml Output Total 1150 ml 5150 ml Balance -558 ml -1575 ml Intake Oral 592 ml 3065 ml IV Total 510 ml Output Urine Total 1150 ml 5150 ml Exam atient is lying supine in bed with head elevated approximately 30 to 45 . He is in no apparent distress. He appears more comfortable today HEENT: Head is atraumatic and normocephalic. Eyes: Pupils are equally round and reactive to light and accommodation. Extraocular muscles are intact. Sclera are white, anicteric. Subconjunctival mucosa is pink. Ears and nose are unremarkable. Oropharynx: There is no mucosal lesions, there is no thrush, there is no pharyngitis. Neck: Is supple, there are no nodes, or masses or tenderness. Chest: Is negative for bilateral crackles and wheezes. There are no rubs evident. Overall the lungs are much clearer Heart: Rate, rhythm is regular. There is a grade 2/6 systolic ejection murmur heard best at the left sternal border radiating to the apex. The murmur is less prominent today. There is no rub or gallop appreciated Abdomen: Good bowel sounds are present. Abdomen is soft, nontender, no organomegaly or masses were appreciated. Extremities: Are symmetrical and well perfused. There is no edema, there is no cellulitis, no rash. Neurologic: There are no focal neurological deficits. Cranial nerves II through XII are intact. There are no sensory or motor deficits. Psychiatric: Patients mood is calm and shows no sign of agitation. Genital: Deferred Rectal: Deferred Lab and Diagnostics Result Diagram: 07/28/16 0615 07/28/16 0615 Microbiology Microbiology studies, including sputum cultures, nasal swabs, blood cultures are all unrevealing. X-Rays, CTs and MRIs CT chest, official report pending at time of admission. Preliminary read showing evidence consistent with chronic obstructive lung disease, partial consolidation at the right lung base, bilateral lung nodules. Cardiac Echo Impressions Echocardiogram Report Name: MAY GEORGES PStudy Date: 07/17 Height: 72 in Hospital Exam Location: [facility] Weight: 159 lb Gender: Male BSA: 1.9 m2 : 1925 Age: 89 yrs BP: 113/73 mmHg Reason For Study: SOB Ordering Physician: HOSPITALIST [facility] Performed By: Dimitrios Bowman Referring Physician: LAVON BRAN Interpretation Summary 1) Mild concentric left ventricular hypertrophy with normal size, and systolic function (EF 55-60%). 2) Septal motion consistent with LBBB but no other wall motion abnormalities are present. 3) Grade 2 diastolic dysfunction (pseudonormalization) present. 4) Normal right ventricular size and function. 5) There is systolic anterior motion of the chordal apparatus. 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 6) No prior Echo available for comparison. Assessment & Plan The patient is a 89yo male with history of hypertension, COPD and DM type2 who presents to the ED following a near syncopal episode earlier this morning. Admitted for further management and evaluation of elevated troponin as well as hypoxia and leukocytosis with findings on chest CT suspicious for HCAP. # Acute hypoxic respiratory failure, present on admission. Active. -Hx of COPD, not on home oxygen, hypoxia at presentation, CT chest concerning for consolidation at right lung base. - Possibly secondary to HCAP, wbc 20.4 w/ left shift and recent [facility] admission in April 2016 for streptococcal pneumonia. -Supplemental oxygen, prn and titrate to 88-92% -Blood cultures x2 pending -MRSA screen, pending -IV zosyn to cover HCAP, will hold on vanco pending MRSA screen due to renal insufficiency -place on telemetry -DuoNebs q4h, albuterol q2h prn -Influenza screen, urine antigens pending # Acute renal failure, present on admission. Ongoing, with creatinine slightly improved today -unclear etiology -avoid nephrotoxic agents -consider nephrology consult if not improved # Possible acute on chronic COPD exacerbation, present on admission. Ongoing -Supplemental oxygen w/maintain sats between 88-92% -We will continue antibiotics, Duonebs as above. -We will continue oral Prednisone 20mg daily # Elevated troponin, present on admission. Active -Patient denies CP/SOB. -EKG w/ NSR rate 95, LBBB unchanged from prior EKG. -troponin at presentation 0.017, will trend -proBNP 1775, Echocardiogram ordered # Type 2 Diabetes mellitus, chronically on home insulin, present on admission. Active. - Hgb A1c of 7.9% on 04/21/2016 per [facility] records - Blood glucose 182 on admission. - HbA1c pending - Medium correctional insulin ordered, Day team to address basal insulin pending med rec. # Hypertension (chronic), present on admission. Stable. - Continue home hydrochlorothiazide # Hyperlipidemia (chronic), present on admission. Presumed stable. - Continue statin therapy PRN: Acetaminophen-fever/headache/mild/moderate pain Antiemetics, as needed Bowel regimen, as needed. Disposition: Patient is likely to be here another 24 hours for further evaluation treatment of the above conditions. Pain Evaluation: Adequate Pain Control GI Prophylaxis: Not indicated VTE Prophylaxis: Sub-Q Heparin (Unfractionated) VTE Mechanical Devices: Intermittant Pneumatic CD Resuscitation Status: DNR/DNI:Do Not Resuscitate/Intubate (Bipap okay) Raymundo Harris MD Jul 29, 2016 00:42
--- NOTE | 2016-07-29 04:56 | NUR ---
Oxygen sat Pt's oxygen sat 94% while awake on 1.5L O2. Pt denies shortness of breath, stating rare productive cough with yellow thick sputum. Placed pt on RA. Pt's Oxygen sat 93-94% while awake. Pt desating while sleeping. Pt placed on 1L O2 by RN. Pt desating to 86% while sleeping on left side on 1L O2. Increased oxygen sat 1.5L, pt woke and coughed, oxygen sat increased to 94%. Will continue to monitor pt's O2 sat.
[2016-07-29 06:05] LABS: BASOPHILS % (AUTO) 0.2 % (0-3); EOSINOPHILS % (AUTO) 1.9 % (0-5); MONOCYTES % (AUTO) 8.5 % (4-12); Mean Corpuscular Volume 87.9 fL (81-100); NEUTROPHILS % (AUTO) 76.2 % (40-74); Platelet Count 199 bil/L (150-400)
[2016-07-29] MEDS: Piperacillin-Tazo 3.375 Gm Inj 3.375 GM in Dextrose 5% Minibag Plus 50 ML IV SCH (06:06)
[2016-07-29] MEDS: Albuterol-Ipratropium 3 mL Inhalation Solution NEB SCH ×2 (08:16→11:35)
[2016-07-29] MEDS: predniSONE 20 mg Tablet PO SCH (08:33)
[2016-07-29] MEDS: Insulin LISPRO 300 Unit/3 mL Inj SUBQ SCH ×2 (08:35→12:00)
[2016-07-29] MEDS: Insulin GLARgine 100 Unit/mL Syringe SUBQ SCH (08:41)
--- NOTE | 2016-07-29 13:50 | NUR ---
Social Work: Discharge Data: Pt is on day 3 of hospitalization. EMR reviewed. D/C orders are in. Pt discussed in rounds. No d/c planning needs at this time. T[employer] WELDER will continue to follow if needs arise. Assessment: Pt who is independent at baseline. Plan: Pt will d/c home via POV today. No d/c planning needs at this time. T[employer] WELDER will continue to follow if needs arise. STEFANI Martin
--- NOTE | 2016-07-29 14:00 | PCM.DIMED ---
Discharge Instructions Date of Service Jul 29, 2016 Dates of Hospitalization Jul 26, 2016 at 05:35 Discharge Diagnosis Discharge Diagnosis Right Lower Lobe Pneumonia with acute on chronic respiratory failure Diet No restrictions Activity No restrictions (The patient may resume usual activities gradually as tolerated) Call your provider Fever or Chills, Shortness of breath, Bleeding, Chest pain, Vomitting, Excessive diarrhea, Weakness (unilateral) Patient Instructions Follow-up Provider: Bandar Gutierrez DO Follow-up with PCP in: 1 week Provider: Rolando Sharma MD Follow-up in: 2 weeks (For Cardiology follow up.) Raymundo Harris MD Jul 29, 2016 14:00
[2016-07-29] MEDS ORDERED: IPRA3AMP NEB (14:16)
[2016-07-29] MEDS ORDERED: PRD5T PO (14:16)
[2016-07-29] MEDS ORDERED: PRED-508 PO (14:16)
[2016-07-29] MEDS ORDERED: CARV3.122 PO (14:16)
[2016-07-29] MEDS ORDERED: AMOX-363 PO (14:34)
--- NOTE | 2016-07-29 15:11 | NUR ---
Discharge Nursing Note: Patient was discharged to home at 1510. Patients IV was removed intact . His telemetry was discontinued. All of his discharge information was reviewed with him and his questions were answered to his satisfaction. Patients Prednisone taper was explained to him and his sister (caregiver). Patients nebulizer will be delivered to his home. Patients 02 sat has maintained at 88-92% on room air while he is ambulating. Patient was brought to the hospital lobby by nursing staff member and he was driven to home by his daughter.
--- NOTE | 2016-07-29 16:07 | NUR ---
Faxed nebulizer script to [facility] per [employer]
--- NOTE | 2016-07-30 00:36 | PCM.DC.MED ---
Discharge Summary Date of Service Jul 29, 2016 Dates of Hospitalization Date of Hospital Admission Jul 26, 2016 at 05:35 Date of Discharge: Jul 29, 2016 Providers: Admitting Physician: Akila Amos DO Primary Care Physician: Bandar Gutierrez DO Attending Physician: Akila Amos DO Diagnosis at Time of Discharge Diagnosis at Time of Discharge Right Lower Lobe Pneumonia with acute on chronic respiratory failure Procedures XRay, CTs & MRIs CT chest, official report pending at time of admission. Preliminary read showing evidence consistent with chronic obstructive lung disease, partial consolidation at the right lung base, bilateral lung nodules. Cardiac Echo Impression Echocardiogram Report Name: MAY GEORGES PStudy Date: 07/17 Height: 72 in Hospital Exam Location: [facility] Weight: 159 lb Gender: Male BSA: 1.9 m2 : 1925 Age: 89 yrs BP: 113/73 mmHg Reason For Study: SOB Ordering Physician: HOSPITALIST [facility] Performed By: Dimitrios Bowman Referring Physician: LAVON BRAN Interpretation Summary 1) Mild concentric left ventricular hypertrophy with normal size, and systolic function (EF 55-60%). 2) Septal motion consistent with LBBB but no other wall motion abnormalities are present. 3) Grade 2 diastolic dysfunction (pseudonormalization) present. 4) Normal right ventricular size and function. 5) There is systolic anterior motion of the chordal apparatus. 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 6) No prior Echo available for comparison. Brief History The patient is a 89y/o male with a history of hypertension, COPD and DM type2 who presents to the ED following a near syncopal episode earlier this morning. Admitted for further management and evaluation of elevated troponin, hypoxia and possible HCAP. Patient admitted to [facility] in April and treated for community acquired pneumonia and acute UTI. Per the patient and his family he was temporarily on supplemental oxygen following discharge and finished his antibiotics. He was otherwise doing well and for all intensive purposes completely recovered until yesterday when reported fatigue, generalized weakness and increased shortness of breath. According to his the patient did not lose consciousness and was not more confused but she notes significant weakness, diaphoresis, hyperglycemia and lethargy. Patient and family deny change in cognition, slurred speech, or focal weakness. Patient states that his chronic non-productive cough is at baseline and he notes shoulder as well as back pain. He denies chest pain, palpitations, nausea or vomiting, abdominal pain, diarrhea, constipation, or urinary symptoms. In the ED, vitals: 36.9, BP 112/64, pulse 100, RR 22, 84% 6L nasal cannula. Labs : wbc 20.4, H/H 16.0/47.8, plts 168, sodium 136, potassium 3.6, chloride 99, bicarb 20, BUN 43, creatinine 1.40, serum glucose 182, lactic acid 1.3, troponin 0.017, proBNP 1775, UA neg leukocyte esterase, neg nitrite, neg pyruia , +glucose, hematuria, uric acid crystals, few bacteria. EKG showing NSR with rate 95, old LBBB unchanged from prior EKGs. CT chest revealed chronic changes consistent with COPD and possible consolidation at the right lung base. The patient was admitted to the [facility] Course The patient is a 89yo male with history of hypertension, COPD and DM type2 who presents to the ED following a near syncopal episode earlier this morning. Admitted for further management and evaluation of elevated troponin as well as hypoxia and leukocytosis with findings on chest CT suspicious for HCAP. # Acute hypoxic respiratory failure, present on admission. Active. -Hx of COPD, not on home oxygen, hypoxia at presentation, CT chest concerning for consolidation at right lung base. - Possibly secondary to HCAP, wbc 20.4 w/ left shift and recent [facility] admission in April 2016 for streptococcal pneumonia. -Supplemental oxygen, prn and titrate to 88-92% -Blood cultures x2 pending -MRSA screen, pending -IV zosyn to cover HCAP, will hold on vanco pending MRSA screen due to renal insufficiency -place on telemetry -DuoNebs q4h, albuterol q2h prn -Influenza screen, urine antigens pending # Acute renal failure, present on admission. Ongoing, with creatinine slightly improved today -unclear etiology -avoid nephrotoxic agents -consider nephrology consult if not improved # Possible acute on chronic COPD exacerbation, present on admission. Ongoing -Supplemental oxygen w/maintain sats between 88-92% -We will continue antibiotics, Duonebs as above. -We will continue oral Prednisone 20mg daily # Elevated troponin, present on admission. Active -Patient denies CP/SOB. -EKG w/ NSR rate 95, LBBB unchanged from prior EKG. -troponin at presentation 0.017, will trend -proBNP 1775, Echocardiogram ordered # Type 2 Diabetes mellitus, chronically on home insulin, present on admission. Active. - Hgb A1c of 7.9% on 04/21/2016 per [facility] records - Blood glucose 182 on admission. - HbA1c pending - Medium correctional insulin ordered, Day team to address basal insulin pending med rec. # Hypertension (chronic), present on admission. Stable. - Continue home hydrochlorothiazide # Hyperlipidemia (chronic), present on admission. Presumed stable. - Continue statin therapy PRN: Acetaminophen-fever/headache/mild/moderate pain Antiemetics, as needed Bowel regimen, as needed. Disposition: Patient is going to be discharged home with his family today. Exam Vital Signs (Last) Date Time Temp Pulse Resp B/P Pulse Ox O2 Delivery O2 Flow Rate FiO2 07/29/16 11:35 79 20 95 Nasal Cannula 1.00 07/29/16 08:51 36.8 145/79 Exam Patient is lying supine in bed with head elevated approximately 30 to 45 . He is in no apparent distress. He appears more comfortable today HEENT: Head is atraumatic and normocephalic. Eyes: Pupils are equally round and reactive to light and accommodation. Extraocular muscles are intact. Sclera are white, anicteric. Subconjunctival mucosa is pink. Ears and nose are unremarkable. Oropharynx: There is no mucosal lesions, there is no thrush, there is no pharyngitis. Neck: Is supple, there are no nodes, or masses or tenderness. Chest: The lungs are much clearer today. There are still diminished breath sounds. Heart: Rate, rhythm is regular. There is a grade 2/6 systolic ejection murmur heard best at the left sternal border radiating to the apex. The murmur is less prominent today. There is no rub or gallop appreciated Abdomen: Good bowel sounds are present. Abdomen is soft, nontender, no organomegaly or masses were appreciated. Extremities: Are symmetrical and well perfused. There is no edema, there is no cellulitis, no rash. Neurologic: There are no focal neurological deficits. Cranial nerves II through XII are intact. There are no sensory or motor deficits. Psychiatric: Patients mood is calm and shows no sign of agitation. Genital: Deferred Rectal: Deferred Test 07/26/16 03:00 07/26/16 03:25 07/26/16 05:38 07/26/16 09:25 Urine Color Yellow (YELLOW) Urine Appearance Clear (CLEAR,HAZY) Urine pH 5.0 (5.0-8.0) Urine Specific [place] 1.030 (1.003-1.035) Urine Protein 100mg/dL (NEG,TRACE) Urine Glucose (UA) 250mg/dL (NEGATIVE) Urine Ketones Negativemg/dL (NEGATIVE) Urine Occult Blood Negative (NEGATIVE) Urine Nitrite Negative (NEGATIVE) Urine Bilirubin Negative (NEGATIVE) Urine Urobilinogen Normalmg/dL (NORMAL) Urine Leukocyte Esterase Negative (NEGATIVE) Urine RBC 3-10/hpf (0-2) Urine WBC 0-5/hpf (0-5) Urine Epithelial Cells Many/hpf (NONE-MOD) Urine Crystals Uric acid crystals (NONE Urine Bacteria Few/hpf (NONE-FEW) Urine Hyaline Casts None/lpf (NONE) Urine Granular Casts None seen (NONE SEEN) Urine Waxy Casts None seen (NONE SEEN) Urine Red Blood Cell Casts None seen (NONE SEEN) Urine White Blood Cell Casts None seen (NONE SEEN) Urine Mucus None seen (None Seen) Urine Trichomonas None seen (NONE SEEN) Urine Yeast None (NONE SEEN) Urine Culture Reflexed Not indicated Urine Legionella pneumophilia Ag Negative (Negative) Prothrombin Time 10.9sec (8.1-12.5) Prothromb Time International Ratio 1.02ratio Pro-B-Type Natriuretic Peptide 1775pg/mL (0-486) Lipase 4U/L (13-60) Hemoglobin A1c 8.4% (4.8-5.6) Lactic Acid Level 0.9mmol/L (0.4-2.0) Test 07/26/16 16:00 07/27/16 06:05 07/29/16 05:32 Troponin T 0.024ug/L (0.0-0.011) Erythrocyte Sedimentation Rate 34mm/hr (0-30) Magnesium Level 2.2mg/dL (1.6-2.6) C-Reactive Protein 21.5mg/dL (0.0-0.5) Procalcitonin 0.33ng/mL (0.00-0.08) White Blood Count 8.6th/mm3 (3.8-10.1) Red Blood Count 4.70mil/mm3 (4.40-5.80) Hemoglobin 14.1g/dL (13.8-17.2) Hematocrit 41.3% (41.0-50.0) Mean Corpuscular Volume 87.9fL (81-100) Mean Corpuscular Hemoglobin 30.0pg (27.0-35.0) Mean Corpuscular Hemoglobin Concent 34.1% (32.0-37.0) Red Cell Distribution Width 13.7% (12.3-15.4) Platelet Count 199bil/L (150-400) Neutrophils (%) (Auto) 76.2% (40-74) Lymphocytes (%) (Auto) 13.0% (14-46) Monocytes (%) (Auto) 8.5% (4-12) Eosinophils (%) (Auto) 1.9% (0-5) Basophils (%) (Auto) 0.2% (0-3) Sodium Level 137mEq/L (134-144) Potassium Level 4.1mEq/L (3.5-5.2) Chloride Level 102mEq/L (97-108) Carbon Dioxide Level 22mmol/L (18-29) Blood Urea Nitrogen 39mg/dL (8-27) Creatinine 1.18mg/dL (0.76-1.27) Estimat Glomerular Filtration Rate 62mL/min (>59) Glucose Level 220mg/dL (60-99) Calcium Level 8.6mg/dL (8.5-10.1) Total Bilirubin 0.3mg/dL (0.0-1.2) Aspartate Amino Transf (AST/SGOT) 12U/L (0-50) Alanine Aminotransferase (ALT/SGPT) 16U/L (0-44) Alkaline Phosphatase 93U/L (25-160) Total Protein 5.8g/dL (6.4-8.4) Albumin 3.1g/dL (3.4-5.0) Microbiology Results Microbiology studies, including sputum cultures, nasal swabs, blood cultures are all unrevealing. Discharge Medications Discharge Medications Amoxicillin/Clav K 500-125 mg (Augmentin 500-125 mg) 1 Each Tablet 1 TABLET PO BID Prescribed by: DAVID HARRIS MD Ascorbic Acid (Vitamin C) 1,000 Mg Tab.chew 1,000 MG PO DAILY (Reported) Aspirin (Aspirin) 81 Mg Tablet 81 MG PO DAILY (Reported) Carvedilol (Carvedilol) 3.125 Mg Tablet 3.125 MG PO BIDWM Prescribed by: DAVID HARRIS MD Fluticasone Propionate (Flovent HFA 110 mcg) 12 Gm Aer.w.adap 2 PUFF IH BID ( Reported) Gluc 2Kcl/Chondr/Magaly Hy/Hy AC (Glucosamine & Chondroitin Cap) 1 Each Capsule 1 EACH PO DAILY (Reported) Insulin NPL/Insulin Lispro (HumaLOG 75/25 U100 Insulin Kwikpen) 100 Unit/1 Ml Insuln.pen 24 UNIT SUBQ BIDAC (Reported) Ipratropium/Albuterol Sulfate (Iprat-Albut 0.5-3(2.5) mg/3 mL Inhalant Soln) 3 Ml Ampul.neb 3 ML NEB QIDWA Prescribed by: DAVID HARRIS MD Lovastatin (Lovastatin) 20 Mg Tablet 20 MG PO HS (Reported) Multivit-Min/FA/Lutein/Zeaxant (Macular Vitamin Tablet) 1 Each Tablet 3 TABLET PO DAILY (Reported) [place]-3 Fatty Acids/Fish Oil (Fish Oil 1,000 mg Softgel) 1 Each Capsule 1 CAPSULE PO DAILY (Reported) Prednisone (Deltasone) 20 Mg Tablet 20 MG PO DAILYWM Prescribed by: DAVID HARRIS MD Prednisone (PredniSONE) 5 Mg Tab 5 MG PO DAILY When finished with the 20mg tablets(after five days) Take two tablets for five days, Then take one tablet for five days then discontinue. Prescribed by: DAVID HARRIS MD As needed Glucagon,Human Recombinant (Glucagon Emergency Kit) 1 Mg Kit 1 MG IM DAILY PRN PRN Hypoglycemia (Reported) Followup Plan Disposition: Patient is being discharged home. Discharge Diet: No restrictions Discharge Activity: No restrictions (The patient may resume usual activities gradually as tolerated) Follow-up Provider: Bandar Gutierrez DO Follow-up with PCP in: 1 week Provider: Rolando Sharma MD Follow-up in: 2 weeks (For Cardiology follow up.) Time spent Time spent on discharging this patient was greater than 35 minutes, over half of which was involved in counseling and coordination of care. Raymundo Harris MD Jul 30, 2016 00:36
== END 2016-07-29 15:14 | disposition home or self-care (01) | DRG 193 ==
LOC: SED 02:37 → MPC 05:35
PROVIDERS: ADMIT Internal Medicine; ATTEND Internal Medicine
DX: J18.9 Pneumonia, unspecified organism (principal); J96.01 Acute respiratory failure with hypoxia; N17.9 Acute kidney failure, unspecified; J44.1 Chronic obstructive pulmonary disease with (acute) exacerbation; I10 Essential (primary) hypertension; E11.9 Type 2 diabetes mellitus without complications; Z79.4 Long term (current) use of insulin; E78.5 Hyperlipidemia, unspecified; Z87.891 Personal history of nicotine dependence

== ENCOUNTER 2016-09-06 04:54 | Inpatient (IN) | payer MEDICARE ==
[2016-09-06] VITALS (15 sets, daily range): BP systolic 110–143; BP diastolic 54–74; PULSE 73–110; RESP 18–36; O2SAT 91–97
[~2016-09-06] VITALS: Ht 182.9 cm; Wt 74.8 kg
[~2016-09-06 04:54] MED LIST changes: -AGM875T PO; +AMOX-363 PO; +ASCO100089 PO; -ASPI-628 PO; +ASPI-973 PO; +CARV3.122 PO; +GLUC-120 PO; +GLUC1KIT IM; -GLUC500T12 PO; -HYDR25TA4 PO; +INSU100I16 SUBQ; -INSU100I17 SUBQ; +IPRA3AMP NEB; +MULT-1052 PO; +OMEG1CAP15 PO; -OMEG1CAP99 PO; +PRD5T PO; -PRE20 PO; +PRED-508 PO; -SALM50DI IH; -centrum silver; -vitamin C
[2016-09-06 05:44] LABS: BASOPHILS % (AUTO) 0.4 % (0-3); EOSINOPHILS % (AUTO) 0.6 % (0-5); MONOCYTES % (AUTO) 17.1 % (4-12); Mean Corpuscular Hemoglobin 29.9 pg (27.0-35.0); Mean Corpuscular Volume 89 fL (81-100); NEUTROPHILS % (AUTO) 72.6 % (40-74); Platelet Count 255 bil/L (150-400)
[2016-09-06 06:03] LABS: TROPONIN T 0.018 ug/L (0.0-0.011)
[2016-09-06 06:15] LABS: Magnesium 1.7 mg/dL (1.6-2.6)
--- NOTE | 2016-09-06 07:19 | ED.REPORT ---
HPI-General Illness Date of Service September 06, 2016 ED Provider: Kajal Gifford MD Patient is an 89 year old male with a history of COPD, diabetes, chronically elevated Troponin levels who was recently admitted on 07/26/16 with a right lower lob pneumonia who presents to the ED via EMS due to a fever onset yesterday. Associated symptoms include decreased appetite for the past 3 days, lethargic, confusion, shortness of breath and cough. Prior to arrival to the ED the patient was given Tylenol with no relief. Nursing Notes Stated Complaint: SHORTNESS OF BREATH Chief Complaint: Respiratory Distress Nursing Notes Reviewed: Yes Allergies: Coded Allergies: No Known Allergies (Verified , 09/06/16) Scheduled Amoxicillin/Clav K 500-125 mg (Augmentin 500-125 mg) 1 Each Tablet 1 TABLET PO BID Ascorbic Acid (Vitamin C) 1,000 Mg Tab.chew 1,000 MG PO DAILY Aspirin (Aspirin) 81 Mg Tablet 81 MG PO DAILY Carvedilol (Carvedilol) 3.125 Mg Tablet 3.125 MG PO BIDWM Fluticasone Propionate (Flovent HFA 110 mcg) 12 Gm Aer.w.adap 2 PUFF IH BID Gluc 2Kcl/Chondr/Magaly Hy/Hy AC (Glucosamine & Chondroitin Cap) 1 Each Capsule 1 EACH PO DAILY Insulin NPL/Insulin Lispro (HumaLOG 75/25 U100 Insulin Kwikpen) 100 Unit/1 Ml Insuln.pen 24 UNIT SUBQ BIDAC Ipratropium/Albuterol Sulfate (Iprat-Albut 0.5-3(2.5) mg/3 mL Inhalant Soln) 3 Ml Ampul.neb 3 ML NEB QIDWA Lovastatin (Lovastatin) 20 Mg Tablet 20 MG PO HS Multivit-Min/FA/Lutein/Zeaxant (Macular Vitamin Tablet) 1 Each Tablet 3 TABLET PO DAILY [place]-3 Fatty Acids/Fish Oil (Fish Oil 1,000 mg Softgel) 1 Each Capsule 1 CAPSULE PO DAILY Prednisone (Deltasone) 20 Mg Tablet 20 MG PO DAILYWM Prednisone (PredniSONE) 5 Mg Tab 5 MG PO DAILY When finished with the 20mg tablets(after five days) Take two tablets for five days, Then take one tablet for five days then discontinue. Scheduled PRN Glucagon,Human Recombinant (Glucagon Emergency Kit) 1 Mg Kit 1 MG IM DAILY PRN PRN Hypoglycemia General Time Seen by MD: 06:12 Chief Complaint Fever Hx Obtained From: Patient, Spouse, Daughter Arrived By: Ambulance Onset Occurred: Yesterday Symptom Duration: Since onset Associated with: Reports: Difficulty breathing, Shortness of breath, Weakness Recent Healthcare: Recent doctor visit, Recent hospitalization Similar Sx Previous: Yes Past Medical History Past Medical History Emphysema (not on home O2) ho Pneumonia Chronic left bundle-branch block Pericarditis in 2007 Gallstone pancreatitis in 1998 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 Reports: COPD, Diabetes mellitus, Hyperlipidemia, Hypertension Past Surgical History Cardiac catheterization hernia repair Reports: Cholecystectomy, Prostatectomy Family History Noncontributory Smoking History Former Smoker Social History The patient does not normally drink alcohol but reports drinking alcohol yesterdat (03/14/15) Drug Use: Denies drug use Other Social History: Good social support, , Local resident Ambulatory Status Independent Review of Systems Full Review of Systems Constitutional: Reports: Fever, Lethargy, Weakness - generalized Respiratory: Reports: Non-productive cough, Shortness of breath, Wheezing Cardiovascular: Denies: Chest pain GI: Denies: Abdominal pain Neurologic: Reports: Confusion Complete sys rev & neg: except as marked. Physical Exam Vital Signs Vital Signs Date Time Temp Pulse Resp B/P Pulse Ox O2 Delivery O2 Flow Rate FiO2 09/06/16 08:00 24 94 40 09/06/16 08:00 77 22 111/57 93 BiPAP 09/06/16 07:30 76 27 114/54 94 Non-Rebreather 09/06/16 07:00 77 26 120/62 97 Non-Rebreather 09/06/16 06:34 77 29 117/59 97 Non-Rebreather 09/06/16 05:08 37.0 99 36 127/59 95 Non-Rebreather 12 Initial VS: Reviewed General/Constitutional: Awake, Alert sleeping comfortably Head / Eyes: Atraumatic, Normocephalic, PERRL, EOMI Neck: Atraumatic, Full range of motion Resp Distress / Stridor: Positive: Resp distress moderate bilateral crackles in all scott right rhonci in auxillary lung respiratory rate in the 30's Oxygen saturation 86% Cardiovascular: Heart rate NL, Regular rhythm, Heart sounds NL Abdomen: Atraumatic, Soft, Non-tender Upper Extremities Upper Extremity / MS: Atraumatic, Full range of motion, No edema Lower Extremity / Pelvis / MS: Atraumatic, Full range of motion, No edema Skin: Atraumatic, Color NL, No rash, Warm, Dry Neurologic: No motor deficits, No sensory deficits Psychiatric: Affect NL, Mood NL Interpretation & Diagnostics Interpretation & Diagnostics: ECHO from 07/26/16: injection fraction of 55-60% Lab Results Interpretation Result Diagram: 09/06/16 0525 09/06/16 0525 Test 09/06/16 05:25 White Blood Count 9.5th/mm3 (3.8-10.1) Red Blood Count 4.51mil/mm3 (4.40-5.80) Hemoglobin 13.5g/dL (13.8-17.2) Hematocrit 39.9% (41.0-50.0) Mean Corpuscular Volume 89fL (81-100) Mean Corpuscular Hemoglobin 29.9pg (27.0-35.0) Mean Corpuscular Hemoglobin Concent 33.8% (32.0-37.0) Red Cell Distribution Width 13.0% (12.3-15.4) Platelet Count 255bil/L (150-400) Neutrophils (%) (Auto) 72.6% (40-74) Lymphocytes (%) (Auto) 9.3% (14-46) Monocytes (%) (Auto) 17.1% (4-12) Eosinophils (%) (Auto) 0.6% (0-5) Basophils (%) (Auto) 0.4% (0-3) Sodium Level 137mEq/L (134-144) Potassium Level 3.5mEq/L (3.5-5.2) Chloride Level 102mEq/L (97-108) Carbon Dioxide Level 21mmol/L (18-29) Blood Urea Nitrogen 21mg/dL (8-27) Creatinine 0.92mg/dL (0.76-1.27) Estimat Glomerular Filtration Rate 83mL/min (>59) Glucose Level 229mg/dL (60-99) Lactic Acid Level 0.8mmol/L (0.4-2.0) Calcium Level 8.2mg/dL (8.5-10.1) Magnesium Level 1.7mg/dL (1.6-2.6) Total Bilirubin 0.4mg/dL (0.0-1.2) Aspartate Amino Transf (AST/SGOT) 14U/L (0-50) Alanine Aminotransferase (ALT/SGPT) 17U/L (0-44) Alkaline Phosphatase 117U/L (25-160) Troponin T 0.018ug/L (0.0-0.011) Pro-B-Type Natriuretic Peptide 3995pg/mL (0-486) Total Protein 6.2g/dL (6.4-8.4) Albumin 2.6g/dL (3.4-5.0) Lab Results Interpretation: BLOOD GAS REPORT: pH 7.325/pCO2 47/pO2 83.1/cHCO3 (P) 24.0/cBase (B) -1.9 ECG Interpretation ECG Interpretation: LBBB and frequent PAC, similar to EKG on 07/26/16 Time: 05:16 Interpreted by: ED physician Normal ECG Interpretation: Normal rate (86), Normal sinus rhythm X-Ray Chest Interpretation Chest Xray Interpretation: bilateral infilitrate, right greater than left View: Portable, 1 view Interpretation / Wet Read by: Wet read ED physician Re-Eval/Medical Decision Med Decision/Clinical Course 89-year-old gentleman increasing respiratory complaints confusion and weakness over the last 3 days. Daughter noticed a fever to 103 yesterday. He was recently in the hospital in early July and is prior to that in April. Labs and chest x-ray as well as clinical exam are all consistent with right-sided pneumonia presumed hospital acquired. Congestive heart failure. COPD with acute exacerbation. With the confusion and increasing weakness certainly concern for sepsis however he currently is not tachycardic nor is his lactic acid elevated. Additional fluid in light of the known heart failure is not given. Discussion about his overall course and expected morbidity and mortality with his daughter and his . They would very much appreciate input from palliative care service and probably even hospice at this time. He does want full medical treatment but absolutely DNR/DNI. He is in acute respiratory failure on initial exam he is hypoxic with a respiratory rate in the 30th with shallow breathing. All comfortable with BiPAP. ABG is somewhat reassuring at this point with a CO2 in the mid 40s only with appropriate acidosis given the higher CO2 suggesting he is not a chronic retainer. Reviewed with hospitalist. He will be admitted. Source of Hx: Old records Time of Eval: 07:32 Re-Evaluation/Progress Note: Discussed code status with family present, code status: no code. Discussed plan for admit. The patient's family and patient understand and agree to the plan for admit. All questions were addressed. Consultation : Referral / Consult Name: Ana Luisa Jacobsen MD Consulted With: Hospitalist Call Returned at: 08:16 [place] Aide: Agrees with eval, Agrees with plan, Accepts admit Counseled Regarding: Diagnosis, Lab results, Need for admission Discharge & Departure Primary Impression: Respiratory failure Chronicity: unspecified Respiratory failure complication: unspecified whether with hypoxia or hypercapnia Qualified Code: J96.90 - Respiratory failure, unspecified, unspecified whether with hypoxia or hypercapnia Additional Impressions: CHF (congestive heart failure) Congestive heart failure type: unspecified congestive heart failure type Congestive heart failure chronicity: unspecified congestive heart failure chronicity Qualified Code: I50.9 - Heart failure, unspecified COPD exacerbation Hospital-acquired pneumonia Disposition: ADMITTED TO HOSPITAL Discharge Condition All VS Reviewed: Yes Condition: Stable Referrals: Bandar Gutierrez DO (PCP) Rolando Sharma MD Attestation Portions of this note were transcribed by Gabriela Mercedes. I, Dr. Gifford personally performed the history, physical exam and medical decision-making; I reviewed and confirmed the accuracy of the information in the transcribed note. Signed by: Dedrick Oropeza, 09/06/16 and 0078 copies to: Bandar Gutierrez DO; Rolando Sharma MD, Shawna L MD September 06, 2016 07:19 Sylvia Mercedes September 06, 2016 07:26
[2016-09-06] MEDS ORDERED: Piperacillin-Tazo 3.375 Gm Inj 3.375 GM in Dextrose 5% Minibag Plus 50 ML IV ONE (07:40)
[2016-09-06] MEDS ORDERED: MethylprednisoLONE Sodium Succinate 62.5 mg/mL 2 mL Inj IVPUSH ONE (07:40)
[2016-09-06] MEDS ORDERED: Albuterol-Ipratropium 3 mL Inhalation Solution NEB ONE (07:40)
[2016-09-06] MEDS ORDERED: Vancomycin Dose per Pharmacist XX ONE (07:40)
[2016-09-06] MEDS ORDERED: levoFLOXacin Inj 750 MG in IV Premix 1 EACH IV ONE (07:40)
[2016-09-06] MEDS ORDERED: Vancomycin Inj 1,500 MG in 0.9% Sodium Chloride 500 ML IV ONE (07:45)
--- NOTE | 2016-09-06 07:58 | ABG ---
DateTimeAnalyzed 07:54:00 -_ pH ____7.325 - 7.350 7.450 pCO2 ___47.4__ -mmHg 35.0 45.0 pO2 ___83.1__ -mmHg 69.0 116 HCO3- ___24.0__ -mmol/L 22.0 26.0 ABE ___-1.9__ -mmol/L -2.0 2.0 tHb ___13.8__ -g/dL O2Hb ___94.3__ -% COHb ____0.9__ -% MetHb ____0.9__ -% sO2 ___96.0__ -% 25.0 FIO2 ___21.0__ -% Drawn By jj - Date/Time Notified____ 07:57:00 -_ Spontaneous_RR ___26.0__ -b/min Liter_Flow ____4.0__ -L/min Oxygen Device 1 NON RE-DIRK - Notified By jj - Notified Whom ___Dr. Laursen - B 762 -mmHg tO2 ___18.4__ -Vol% Srinivas test _Positive -
[2016-09-06] MEDS ORDERED: Ondansetron 2 mg/mL 2 mL Inj IVPUSH PRN ×2 (08:20→08:50)
[2016-09-06] MEDS ORDERED: Alum-Mag Hydrox-Simeth 30 mL Suspension PO PRN ×2 (08:20→08:50)
[2016-09-06] MEDS ORDERED: Polyethylene Glycol (PEG) 17 Gm Powder PO PRN (08:50)
[2016-09-06] MEDS ORDERED: FLUT12AE8 IH (09:26)
--- NOTE | 2016-09-06 09:44 | DRSVH ---
PROCEDURE: X-RAY CHEST ONE VIEW, PORTABLE ([id number]) INDICATIONS: SOB TECHNIQUE: One view of the chest was acquired. COMPARISON: [facility], CR, XR CHEST 2VW, 07/28/2016, 9:40. [facility], CT, CT CHEST WO CON, 07/26/2016, 4:56. [facility], CR, XR CHEST 2VW, 05/06/2016, 13:53. [facility], CR, CHEST 2VW, 03/13/2013, 13:15. [facility], CR, XR CHEST 1VW (POR TABLE), 07/26/2016, 3:02. FINDINGS: Surgical changes and devices: None. Lungs and pleura: There are chronic interstitial prominence bilaterally, right greater than left. He is disease and lung bases are probably atelectasis or scarring. No pleural effusions or pneumothorax . Mediastinum: Mediastinal contours appear normal. Heart size is normal. Bones and chest wall: No suspicious bony lesions. Overlying soft tissues appear unremarkable. IMPRESSION: Suspect chronic interstitial lung disease. Superimposed acute pneumonic process such as p neumonia could be obscured. Dictated by: Eleazar Zepeda M.D. on 09/06/2016 at 9:40 Approved by: Eleazar Zepeda M.D. on 09/06/2016 at 9:42
[2016-09-06 11:35] LABS: APPEARANCE,URINE SLIGHTLY CLOUDY (CLEAR,HAZY); COLOR,URINE YELLOW (YELLOW); OCCULT BLOOD,URINE SMALL (NEGATIVE); PH,URINE 5.5 (5.0-8.0); UROBILINOGEN,URINE NORMAL (NORMAL)
[2016-09-06] MEDS: 0.9% Sodium Chloride 1,000 ML IV SCH ×2 (11:35→21:53)
[2016-09-06] MEDS: Albuterol-Ipratropium 3 mL Inhalation Solution NEB SCH ×3 (11:56→20:43)
[2016-09-06] MEDS ORDERED: Glucose 40% Oral Gel 15 Gm Tube PO PRN (15:25)
--- NOTE | 2016-09-06 17:17 | PCM.HPMED ---
Subjective Date of Service September 06, 2016 Primary Provider: Admitting Physician: Primary Care Physician: Bandar Gutierrez DO Attending Physician: Admit Status: From the Emergency Department Chief Complaint: "just don't feel good" History of Present Illness: Mr. Hank Wynn is an 89 year old man with history of chronic obstructive pulmonary disease, diabetes mellitus type II insulin dependent, hypertension, hyperlipidemia, and pneumonia who presented to the emergency department via emergency medical services today for fever, lethargy, cough, and dyspnea. He is accompanied by his and daughter. At the time of exam, patient was on BiPAP and was answering yes or no questions only. He reported that he had chills, cough, dyspnea, and fatigue. He did not have chest pain, abdominal pain, numbness, tingling, or focal weakness. His reports that he has a chronic cough that is usually not productive, but it was productive this morning of yellow sputum. She also reports that his temperature at home was 103.2 degree F prior to calling 911 around 3:00 AM, and his daughter then gave him two Tylenol. For the past 3 days, he has not had an appetite and had trouble breathing despite using his nebulizer four times per day and his inhaler twice per day. He also has nasal congestion and a decreased voice. This is the first time that he also had chills compared to the previous two times that he came to the hospital. He was not around anyone that they know was sick. He has had his influenza vaccine yearly and has had at least one pneumococcal vaccine. He is a former smoker with a 25 pack year history. He has not had any recent travel or animal exposures. He does not use oxygen at home. He was supposed to use oxygen at home previously, but does not like to use it. He had at one time used oxygen at home for years. He finished the antibiotics and the prednisone prescribed from his last hospitalization. He finished the prednisone about 10-14 days ago. He has not had confusion, weakness, night sweats, nausea, vomiting, diarrhea, constipation, dysuria, or bleeding in his urine or stools. In the emergency department, he was started on BiPAP and given a dose of methylprednisolone 125 mg IV once, levofloxacin 750 mg IV once, vancomycin 1, 500 mg IV once, and piperacillin/tazobactam 3.375 g IV once. He was also given a nebulizer treatment of albuterol/ipratropium. He was given a dose of lorazepam 0.5 mg IV once. Patient was hospitalized in April 2016 and July 2016. In April 2016, he was admitted for positive Streptococcus pneumoniae sputum, Klebsiella urinary tract infection, and influenza A. In July 2016, he was admitted for right lower lobe pneumonia seen on CT scan. Review of Systems: A comprehensive review of systems was conducted with the patient and found to be negative except as above in the History of Present Illness. Allergies Coded Allergies: No Known Allergies (Verified , 09/06/16) Home Medications Ascorbic Acid (Vitamin C) 1,000 Mg Tab.chew 1,000 MG PO DAILY Aspirin (Aspirin) 81 Mg Tablet 81 MG PO DAILY Carvedilol (Carvedilol) 3.125 Mg Tablet 3.125 MG PO BIDWM Fluticasone Propionate (Flovent HFA 110 mcg) 12 Gm Aer.w.adap 2 PUFF IH BID Gluc 2Kcl/Chondr/Magaly Hy/Hy AC (Glucosamine & Chondroitin Cap) 1 Each Capsule 1 EACH PO DAILY Insulin NPL/Insulin Lispro (HumaLOG 75/25 U100 Insulin Kwikpen) 100 Unit/1 Ml Insuln.pen 24 UNIT SUBQ BIDAC Ipratropium/Albuterol Sulfate (Iprat-Albut 0.5-3(2.5) mg/3 mL Inhalant Soln) 3 Ml Ampul.neb 3 ML NEB QIDWA Lovastatin (Lovastatin) 20 Mg Tablet 20 MG PO HS Multivit-Min/FA/Lutein/Zeaxant (Macular Vitamin Tablet) 1 Each Tablet 3 TABLET PO DAILY [place]-3 Fatty Acids/Fish Oil (Fish Oil 1,000 mg Softgel) 1 Each Capsule 1 CAPSULE PO DAILY PMH Emphysema, chronic obstructive pulmonary disease (not on home oxygen) History of pneumonia with two prior admissions to the hospital Chronic left bundle-branch block Pericarditis in 2007 Gallstone pancreatitis in 1998 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 Diabetes mellitus type II insulin dependent Hyperlipidemia Hypertension Elevated troponin level Actinic keratoses Surgical History Cardiac catheterization in 2007 that showed minor coronary artery disease with an ejection fraction of 52% and apical half of the anterior wall hypokinesis and was treated medically Hernia repair Cholecystectomy Prostatectomy Family History Father from emphysema No known family history of cancer on mother or father's side of family Social History Occupation: Retired [employer] Hx Alcohol Use: No Hx Substance Use: No Hx Tobacco Use: Yes Smoking Status: Former Smoker (25 pack year history) Living Arrangement: with Family () Additional Information Lives in [place] Exam Vital Signs Vital Sign - Last Date Time Temp Pulse Resp B/P Pulse Ox O2 Delivery O2 Flow Rate FiO2 09/06/16 11:56 29 96 40 09/06/16 10:06 36.2 95 143/66 BiPAP 09/06/16 05:08 12 Exam General: Elderly gentlemen sitting partially up in bed with BiPAP in place in moderate respiratory distress with rigors, well-developed, thin, appropriately interactive HEENT: Normocephalic, atraumatic. External ears without defect. Pupils equal, round, and reactive to light and accommodation. Anicteric sclerae, moist conjunctivae, and no lid lag. Oropharynx free of erythema and cobble stoning with moist mucosa. Neck: Supple with full range of motion. Trace jugular venous distension. No lymphadenopathy or thyromegaly. Cardiovascular: Tachycardic with a regular rhythm with no murmurs, rubs, or gallops appreciated Pulmonary: Bilateral inspiratory and expiratory wheezing with poor air movement with scattered crackles at bilateral lung bases. Increased respiratory effort with use of accessory muscles.Speaking in 1-3 word sentences. Abdomen: Bowel tones present. Soft, nontender, nondistended. No hepatosplenomegaly or masses appreciated. Extremities: No clubbing, cyanosis, edema, or lymphadenopathy appreciated. Skin: Normal temperature, turgor, and texture; no rash, ulcers, or subcutaneous nodules appreciated. Neurological: Cranial nerves grossly intact. Normal muscle strength grossly, tone, and bulk. No known gait impairment. Psychiatric: Anxious. Normal affect. Alert and oriented to person, place, and time. Lab and Diagnostics Result Diagram: 09/06/1652409/06/16524 X-Rays, CTs and MRIs PROCEDURE: X-RAY CHEST ONE VIEW, PORTABLE IMPRESSION: Suspect chronic interstitial lung disease. Superimposed acute pneumonic process such as pneumonia could be obscured. Approved by: Eleazar Zepeda M.D. on 09/06/2016 at 9:42 PROCEDURE: X-RAY BARIUM SWALLOW WITH FOOD & VIDEOGRAPHY IMPRESSION: No laryngeal penetration or tracheobronchial aspiration. Approved by: Kathy Mcmillan MD, PhD on 09/03/2016 at 16:46 12-lead ECG LBBB and frequent PAC, similar to EKG on 07/26/16 Time: 05:16 Interpreted by: ED physician Normal ECG Interpretation: Normal rate (86), Normal sinus rhythm Cardiac Echo Impressions Echocardiogram Report (08/05/2016) Interpretation Summary 1) Mild concentric left ventricular hypertrophy with normal size, and systolic function (EF 55-60%). 2) Septal motion consistent with LBBB but no other wall motion abnormalities are present. 3) Grade 2 diastolic dysfunction (pseudonormalization) present. 4) Normal right ventricular size and function. 5) There is systolic anterior motion of the chordal apparatus. 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 6) No prior Echo available for comparison. Reading Physician:02: 20 PM Assessment & Plan Mr. Hank Wynn is an 89 year old man with history of chronic obstructive pulmonary disease, diabetes mellitus type II insulin dependent, hypertension, hyperlipidemia, and pneumonia who presented to the emergency department via emergency medical services today for fever, lethargy, cough, and dyspnea. Today is hospital day 1. Acute sepsis, present on admission, active. - Met criteria with HR 99 bpm, respiratory rate 36, and suspected infection of pneumonia - Urinalysis negative nitrites and leukocyte esterase - Chest x-ray as above - Lactic acid within normal limits - Antibiotics as below - IV fluids at rate of 50 mL/hour of normal saline - Sputum and blood cultures pending - Viral respiratory PCR ordered - Continue to monitor Acute on chronic hypoxemic and hypercapnic respiratory failure, present on admission, active. - Chronic respiratory alkalosis with an acute respiratory acidosis - Secondary to exacerbation of COPD, likely acute pneumonia, and sepsis - ABG showed pH 7.325, pCO2 47.4, pO2 83.1, and HCO3 24 - Patient does not use oxygen at home but has chronic obstructive pulmonary disease - He initially required a BiPAP but now oxygen saturation 93% with 1.5 L on OxyMask - Currently oxygen saturation - Continue supplemental oxygen and respiratory support Possible recurrent pneumonia, present on admission, active. - Possible community acquired pneumonia. Concern for health care associated pneumonia but patient was discharged from hospital on 07/29/16, which is over 30 days ago. Concern for aspiration pneumonia as previous pneumonia and x-ray today showed a right lower lobe consolidation. However, pt had a modified barium swallow that did not show signs of aspiration - Patient had a fever at home and reports a productive cough - Strep pneumoniae and legionella antigens negative - Procalcitonin mildly elevated at 0.17 - Sputum culture pending - MRSA screen pending - Continue IV vancomycin, Zosyn, and levofloxacin to cover for MRSA and atypical bacteria. Will de-escalated antibiotics when MRSA screen is resulted. - Speech therapy evaluation tomorrow Chronic obstructive pulmonary disease, acute exacerbation, present on admission , active. - Pt reports a worsening cough and no improvement with at home nebulizer and inhaler. No at home oxygen use. Former smoker with 25 pack year history. - Antibiotics as above - Prednisone 60 mg once daily - Continue Flovent inhaler BID - Continue DuoNebs scheduled QID while awake - Goal oxygen saturation of 88-92% Elevated troponin of unknown significance, acute on chronic, present on admission, active. - Elevated in the past during previous admissions in 04/2016 and 07/2016. - Most likely due to demand ischemia with known minor coronary artery disease seen on cardiac catheterization in 2007 in the setting of an acute infection/ stressor. - Pt denies chest pain and EKG did not show concerning ST segment changes - Elevated minimally today at 0.018 and decreased to negative - Continue to trend for total of 3 troponin levels - Continue beta genny, statin, and aspirin Diabetes mellitus type II insulin dependent, inadequately controlled - HgbA1c 8.4% on 07/26/2016 - At home, pt takes Insulin NPH/Lispro 75/25, 24 units BIDAC - Started pt on 14 units of NPH BIDAC with 2 units of Lispro AC along with a high dose correctional Lispro scale - Continue to monitor and adjust accordingly Chronic hypertension, present on admission, stable. - He no longer takes an ACEI/ARB due to acute kidney injury at previous hospitalization - Continue carvedilol 3.125 mg BIDWM Chronic hyperlipidemia, present on admission, stable. - Continue statin therapy Chronic diastolic heart failure, present on admission, stable. - Grade 2 diastolic dysfunction seen on echocardiogram in 07/2016 as above - Given IV normal saline in context of acute sepsis - Continue beta genny and statin as above - Continue aspirin 81 mg once daily - Monitor daily weights and I&Os Patient Status: Patient is admitted under inpatient status with expected length of stay greater than 2 midnights due to severity of presenting symptoms, risk of adverse event, and complexity of treatment plan. CODE STATUS: Patient wants chest compression, defibrillation/cardioversion, BiPAP, medications, and IV fluids but DO NOT INTUBATE. VTE Prophylaxis: Sub-Q Heparin (Unfractionated) Resuscitation Status: Limited Interventions Attending Statement The patient was seen and examined together with Dr. Bethea on 09-06-16 and I agree with the history, exam and plan as outlined in the note above. copies to: Bandar Gutierrez Marissa L DO September 06, 2016 13:02 Ana Luisa Jacobsen MD September 07, 2016 16:26
[2016-09-06] MEDS: Insulin LISPRO 300 Unit/3 mL Inj SUBQ SCH ×2 (17:39→22:05)
[2016-09-06] MEDS: Insulin Human NPH 100 Unit/mL 3 mL Inj SUBQ SCH (19:47)
[2016-09-06] MEDS ORDERED: Vancomycin Inj 750 MG in 0.9% Sodium Chloride 250 ML IV SCH (21:00)
[2016-09-06] MEDS: Fluticasone 250 mCg Inhaler INHALATION SCH (21:45)
[2016-09-06] MEDS: Piperacillin-Tazo 3.375 Gm Inj 3.375 GM in Dextrose 5% Minibag Plus 50 ML IV SCH (23:50)
[2016-09-06] MEDS: Heparin 5,000 Unit/mL Inj SUBQ SCH (23:50)
[2016-09-07] VITALS (11 sets, daily range): BP systolic 113–120; BP diastolic 56–65; PULSE 65–84; RESP 18–28; O2SAT 90–94
[2016-09-07 04:07] LABS: BASOPHILS % (AUTO) 0.1 % (0-3); EOSINOPHILS % (AUTO) 0 % (0-5); MONOCYTES % (AUTO) 5.5 % (4-12); Mean Corpuscular Hemoglobin 29.6 pg (27.0-35.0); Mean Corpuscular Volume 89.9 fL (81-100); NEUTROPHILS % (AUTO) 88.1 % (40-74); Platelet Count 257 bil/L (150-400)
[2016-09-07] MEDS: Albuterol-Ipratropium 3 mL Inhalation Solution NEB SCH ×4 (07:32→21:03)
[2016-09-07] MEDS ORDERED: Albuterol 1.25 mg/3 mL Inhalation Solution NEB PRN (08:15)
[2016-09-07] MEDS ORDERED: levoFLOXacin Inj 750 MG in IV Premix 1 EACH IV SCH (08:30)
[2016-09-07] MEDS ORDERED: Vancomycin Dose per Pharmacist XX SCH (08:30)
[2016-09-07] MEDS: Fluticasone 250 mCg Inhaler INHALATION SCH ×2 (08:48→19:35)
[2016-09-07] MEDS: Insulin LISPRO 300 Unit/3 mL Inj SUBQ SCH ×4 (08:48→20:47)
[2016-09-07] MEDS: Omega-3 Fatty Acids 1,000 mg Capsule PO SCH (08:49)
[2016-09-07] MEDS: Insulin Human NPH 100 Unit/mL 3 mL Inj SUBQ SCH (08:49)
[2016-09-07] MEDS: predniSONE 20 mg Tablet PO SCH (08:49)
[2016-09-07] MEDS: Heparin 5,000 Unit/mL Inj SUBQ SCH ×3 (08:50→23:41)
[2016-09-07] MEDS: Ascorbic Acid 500 mg Tablet PO SCH (08:50)
[2016-09-07] MEDS: Piperacillin-Tazo 3.375 Gm Inj 3.375 GM in Dextrose 5% Minibag Plus 50 ML IV SCH (10:35)
[2016-09-07] MEDS ORDERED: Insulin Human NPH 100 Unit/mL 3 mL Inj SUBQ SCH ×2 (12:10→16:30)
[2016-09-07] MEDS ORDERED: Albuterol 2.5 mg/3 mL Inhalation Solution NEB PRN (15:00)
--- NOTE | 2016-09-07 16:08 | PCM.PNMED ---
Subjective Date of Service September 07, 2016 Subjective Mr. Hank Wynn is an 89 year old man with history of chronic obstructive pulmonary disease, diabetes mellitus type II insulin dependent, hypertension, hyperlipidemia, and pneumonia who presented to the emergency department via emergency medical services today for fever, lethargy, cough, and dyspnea. Today is hospital day 2. This morning, he reports that the he feels better than when he first arrived at the hospital. He continues to have a productive cough. He no longer has chills. He does not have chest pain. He does not feel more short of breath compared to normal. Patient's daughter reports that her father has some short term memory loss at baseline. Exam Vital Signs Vital Sign - Last Date Time Temp Pulse Resp B/P Pulse Ox O2 Delivery O2 Flow Rate FiO2 09/07/16 11:45 71 20 93 OxyMask 1.00 09/07/16 08:43 36.8 113/61 09/06/16 11:56 40 Intake and Output 09/06/16 09/06/16 09/07/16 Cumulative From/Thru 15:00 23:00 07:00 09/06/16 05:08 - 09/07/16 05:27 Intake Total 1000 ml 374 ml 1023 ml 2397 ml Output Total 400 ml 300 ml 700 ml Balance 1000 ml -26 ml 723 ml 1697 ml Intake Oral 50 ml 400 ml 450 ml IV Total 1000 ml 324 ml 623 ml 1947 ml Output Urine Total 400 ml 300 ml 700 ml # Voids 1 1 # Bowel Movements 1 1 Exam General: Elderly gentlemen sitting partially up in bed with an Oxymask in place in no acute distress, well-developed, thin, appropriately interactive HEENT: Normocephalic, atraumatic. External ears without defect. Anicteric sclerae, moist conjunctivae, and no lid lag. Oropharynx free of erythema and cobble stoning with moist mucosa. Neck: Supple with full range of motion. Trace jugular venous distension. No lymphadenopathy or thyromegaly. Cardiovascular: Regular rate and rhythm with no murmurs, rubs, or gallops appreciated Pulmonary: Scattered bilateral inspiratory and expiratory wheezing with good air movement. Intermittent increased respiratory effort with use of accessory muscles. Speaking in 2-5 word sentences. Abdomen: Bowel tones present. Soft, nontender, nondistended. Extremities: No clubbing, cyanosis, edema, or lymphadenopathy appreciated. Skin: Normal temperature, turgor, and texture; no rash, ulcers, or subcutaneous nodules appreciated. Neurological: Cranial nerves grossly intact. Normal muscle strength grossly. No known gait impairment. Psychiatric: Normal mood and affect. Alert and oriented to person and place and disoriented to time. Lab and Diagnostics Result Diagram: 09/07/16 0330 09/07/16 0330 X-Rays, CTs and MRIs PROCEDURE: X-RAY CHEST ONE VIEW, PORTABLE IMPRESSION: Suspect chronic interstitial lung disease. Superimposed acute pneumonic process such as pneumonia could be obscured. Approved by: Eleazar Zepeda M.D. on 09/06/2016 at 9:42 PROCEDURE: X-RAY BARIUM SWALLOW WITH FOOD & VIDEOGRAPHY IMPRESSION: No laryngeal penetration or tracheobronchial aspiration. Approved by: Kathy Mcmillan MD, PhD on 09/03/2016 at 16:46 12-lead ECG LBBB and frequent PAC, similar to EKG on 07/26/16 Time: 05:16 Interpreted by: ED physician Normal ECG Interpretation: Normal rate (86), Normal sinus rhythm Cardiac Echo Impressions Echocardiogram Report (08/05/2016) Interpretation Summary 1) Mild concentric left ventricular hypertrophy with normal size, and systolic function (EF 55-60%). 2) Septal motion consistent with LBBB but no other wall motion abnormalities are present. 3) Grade 2 diastolic dysfunction (pseudonormalization) present. 4) Normal right ventricular size and function. 5) There is systolic anterior motion of the chordal apparatus. 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 6) No prior Echo available for comparison. Reading Physician:02: 20 PM Assessment & Plan Mr. Hank Wynn is an 89 year old man with history of chronic obstructive pulmonary disease, diabetes mellitus type II insulin dependent, hypertension, hyperlipidemia, and pneumonia who presented to the emergency department via emergency medical services today for fever, lethargy, cough, and dyspnea. Today is hospital day 2. Acute sepsis, present on admission, resolved. - Met criteria with HR 99 bpm, respiratory rate 36, and suspected infection of pneumonia - Urinalysis negative nitrites and leukocyte esterase - Chest x-ray as above - Lactic acid within normal limits - Sputum culture shows preliminary growth of gram negative sybil, probable haemophilus, sensitivities pending - Antibiotics as below - IV fluids at rate of 50 mL/hour of normal saline discontinued and blood cultures pending - Viral respiratory PCR ordered - Continue to monitor Acute on chronic hypoxemic and hypercapnic respiratory failure, present on admission, improving. - Chronic respiratory alkalosis with an acute respiratory acidosis - Secondary to exacerbation of COPD, likely acute pneumonia, and sepsis - Original ABG showed pH 7.325, pCO2 47.4, pO2 83.1, and HCO3 24 - Patient does not use oxygen at home but has chronic obstructive pulmonary disease - He initially required a BiPAP but now oxygen saturation 93% with 1L on OxyMask - Continue supplemental oxygen and respiratory support Recurrent pneumonia, present on admission, active. - Probable haemophilus influenzae community acquired pneumonia based on sputum culture. Concern for health care associated pneumonia but patient was discharged from hospital on 07/29/16, which is over 30 days ago. Concern for aspiration pneumonia as previous pneumonia and x-ray showed a right lower lobe consolidation. However, pt had a modified barium swallow that did not show signs of aspiration and swallow evaluation today. - Patient had a fever at home and reports a productive cough - Strep pneumoniae and legionella antigens negative - Procalcitonin mildly elevated at 0.17 and decreased to 0.16 today - Sputum culture as above - MRSA screen negative - Discontinued IV vancomycin and Zosyn as MRSA was negative - Continue IV levofloxacin to cover for atypical bacteria including Haemophilus influenzae for a total of 4-6 days - Speech therapy gave recommendation for regular foods, natural nectars with meals, and thin liquids between meals after oral care. Chronic obstructive pulmonary disease, acute exacerbation, present on admission , active. - Pt reports a worsening cough and no improvement with at home nebulizer and inhaler. No at home oxygen use. Former smoker with 25 pack year history. - Antibiotics as above - Continue prednisone 60 mg once daily - Continue Flovent inhaler BID - Continue DuoNebs scheduled QID while awake - Albuterol nebulizer every 2 hours as needed - Goal oxygen saturation of 88-92% Diabetes mellitus type II insulin dependent, inadequately controlled - HgbA1c 8.4% on 07/26/2016 - At home, pt takes Insulin NPH/Lispro 75/25, 24 units BIDAC - Increased to 24 units of NPH BIDAC with 6 units of Lispro AC along with a high dose correctional Lispro scale - Continue to monitor and adjust accordingly - Diabetes inpatient education - Education about correctional insulin scale for patient's daughter Chronic diastolic heart failure, present on admission, stable. - Grade 2 diastolic dysfunction seen on echocardiogram in 07/2016 as above - Given IV normal saline in context of acute sepsis - Continue beta genny and statin as above - Continue aspirin 81 mg once daily - Monitor daily weights and I&Os - Patient's daughter requested discussion with palliative care about patient and patient's family's goals of care. Palliative care consult tomorrow. Chronic hypertension, present on admission, stable. - He no longer takes an ACEI/ARB due to acute kidney injury at previous hospitalization - Continue carvedilol 3.125 mg BIDWM Chronic hyperlipidemia, present on admission, stable. - Continue statin therapy Elevated troponin of unknown significance, acute on chronic, present on admission, resolved. - Elevated in the past during previous admissions in 04/2016 and 07/2016. - Most likely due to demand ischemia with known minor coronary artery disease seen on cardiac catheterization in 2007 in the setting of an acute infection/ stressor. - Pt denies chest pain and EKG did not show concerning ST segment changes - Elevated minimally today at 0.018 and decreased to negative times 2 - Continue beta genny, statin, and aspirin Disposition: Likely discharge home in next 1-3 days pending continued improvement with patient's daughter as primary caregiver. VTE Prophylaxis: Sub-Q Heparin (Unfractionated) VTE Mechanical Devices: Intermittant Pneumatic CD Resuscitation Status: Limited Interventions Attending Statement The patient was seen and examined together with Dr. Bethea on 09-07-16 and I agree with the history, exam and plan as outlined in the note above. Tamie Bethea DO September 07, 2016 16:08 Ana Luisa Jacobsen MD September 07, 2016 17:45
[2016-09-07] MEDS ORDERED: Vancomycin Serum Trough XX ONE (20:30)
[2016-09-07] MEDS ORDERED: Insulin LISPRO 300 Unit/3 mL Inj SUBQ ONE (23:35)
[2016-09-08] VITALS (10 sets, daily range): BP systolic 120–136; BP diastolic 52–78; PULSE 63–78; RESP 16–22; O2SAT 88–94
[2016-09-08] MEDS ORDERED: Insulin Human REGular Inj 100 UNIT in 0.9% Sodium Chloride-Pha MIX 100 ML IV SCH (02:28)
[2016-09-08] MEDS ORDERED: Dextrose 10% 250 ML IV PRN (02:30)
[2016-09-08 03:06] LABS: BASOPHILS % (AUTO) 0.1 % (0-3); EOSINOPHILS % (AUTO) 0 % (0-5); Mean Corpuscular Hemoglobin 29.8 pg (27.0-35.0); Mean Corpuscular Volume 88.8 fL (81-100); NEUTROPHILS % (AUTO) 86.6 % (40-74); Platelet Count 305 bil/L (150-400)
[2016-09-08] MEDS ORDERED: Dextrose 5% 0.45% NaCl 1,000 ML IV PRN (03:10)
[2016-09-08] MEDS: Albuterol-Ipratropium 3 mL Inhalation Solution NEB SCH ×4 (07:20→20:06)
[2016-09-08] MEDS: Ascorbic Acid 500 mg Tablet PO SCH (09:53)
[2016-09-08] MEDS: Omega-3 Fatty Acids 1,000 mg Capsule PO SCH (09:53)
[2016-09-08] MEDS: predniSONE 20 mg Tablet PO SCH (09:53)
[2016-09-08] MEDS: Fluticasone 250 mCg Inhaler INHALATION SCH ×2 (09:54→20:20)
[2016-09-08] MEDS: Heparin 5,000 Unit/mL Inj SUBQ SCH ×3 (09:54→23:41)
[2016-09-08] MEDS ORDERED: Glucose 40% Oral Gel 15 Gm Tube PO PRN (11:05)
[2016-09-08] MEDS: Insulin LISPRO 300 Unit/3 mL Inj SUBQ SCH ×3 (12:06→20:23)
--- NOTE | 2016-09-08 14:42 | PCM.PNMED ---
Subjective Date of Service September 08, 2016 Subjective Mr. Hank Wynn is an 89 year old man with history of chronic obstructive pulmonary disease, diabetes mellitus type II insulin dependent, hypertension, hyperlipidemia, and pneumonia who presented to the emergency department via emergency medical services today for fever, lethargy, cough, and dyspnea. Today is hospital day 3. Overnight, he was started on an insulin drip for better glycemic control. This morning, he continues to have a productive cough but it is improving. His oxygen requirement will increase while he is eating. He reports that he continues to feel much better. He does not have chest pain or abdominal pain. Exam Vital Signs Vital Sign - Last Date Time Temp Pulse Resp B/P Pulse Ox O2 Delivery O2 Flow Rate FiO2 09/08/16 12:09 36.5 69 18 130/69 89 Room Air 09/07/16 23:05 1.00 09/06/16 11:56 40 Intake and Output 09/07/16 09/07/16 09/08/16 Cumulative From/Thru 15:00 23:00 07:00 09/06/16 05:08 - 09/08/16 06:42 Intake Total 1120 ml 1140 ml 4657 ml Output Total 800 ml 675 ml 2175 ml Balance 320 ml 465 ml 2482 ml Intake Oral 570 ml 650 ml 1670 ml IV Total 550 ml 490 ml 2987 ml Output Urine Total 800 ml 675 ml 2175 ml # Voids 1 # Bowel Movements 1 Exam General: Elderly gentlemen sitting partially up in bed on room air, in no acute distress, well-developed, thin, appropriately interactive HEENT: Normocephalic, atraumatic. External ears without defect. Anicteric sclerae, moist conjunctivae, and no lid lag. Oropharynx free of erythema and cobble stoning with moist mucosa. Neck: Supple with full range of motion. Trace jugular venous distension. No lymphadenopathy or thyromegaly. Cardiovascular: Regular rate and rhythm with no murmurs, rubs, or gallops appreciated Pulmonary: Bilateral crackles at lung bases with good air movement. Normal respiratory effort without use of accessory muscles. Abdomen: Bowel tones present. Soft, nontender, nondistended. Extremities: Trace pitting, pedal edema bilaterally. No clubbing, cyanosis, edema, or lymphadenopathy appreciated. Skin: Normal temperature, turgor, and texture; no rash, ulcers, or subcutaneous nodules appreciated. Neurological: Cranial nerves grossly intact. Normal muscle strength grossly. No known gait impairment. Psychiatric: Normal mood and affect. Alert and oriented to person and place and disoriented to time. IVs and Medications Medications Reviewed: Medications were reviewed in detail Lab and Diagnostics Result Diagram: 09/08/16 0230 09/08/16 023 X-Rays, CTs and MRIs PROCEDURE: X-RAY CHEST ONE VIEW, PORTABLE IMPRESSION: Suspect chronic interstitial lung disease. Superimposed acute pneumonic process such as pneumonia could be obscured. Approved by: Eleazar Zepeda M.D. on 09/06/2016 at 9:42 PROCEDURE: X-RAY BARIUM SWALLOW WITH FOOD & VIDEOGRAPHY IMPRESSION: No laryngeal penetration or tracheobronchial aspiration. Approved by: Kathy Mcmillan MD, PhD on 09/03/2016 at 16:46 12-lead ECG LBBB and frequent PAC, similar to EKG on 07/26/16 Time: 05:16 Interpreted by: ED physician Normal ECG Interpretation: Normal rate (86), Normal sinus rhythm Cardiac Echo Impressions Echocardiogram Report (08/05/2016) Interpretation Summary 1) Mild concentric left ventricular hypertrophy with normal size, and systolic function (EF 55-60%). 2) Septal motion consistent with LBBB but no other wall motion abnormalities are present. 3) Grade 2 diastolic dysfunction (pseudonormalization) present. 4) Normal right ventricular size and function. 5) There is systolic anterior motion of the chordal apparatus. 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 6) No prior Echo available for comparison. Reading Physician:02: 20 PM Assessment & Plan Mr. Hank Wynn is an 89 year old man with history of chronic obstructive pulmonary disease, diabetes mellitus type II insulin dependent, hypertension, hyperlipidemia, and pneumonia who presented to the emergency department via emergency medical services today for fever, lethargy, cough, and dyspnea. Today is hospital day 2. Acute sepsis, present on admission, resolved. - Met criteria with HR 99 bpm, respiratory rate 36, and suspected infection of pneumonia - Urinalysis negative nitrites and leukocyte esterase - Viral respiratory PCR negative - Chest x-ray as above - Lactic acid within normal limits - Sputum culture shows growth of Haemophilus influenzae, sensitive to ceftriaxone - Antibiotics as below - IV fluids at rate of 50 mL/hour of normal saline discontinued - Continue to monitor Acute on chronic hypoxemic and hypercapnic respiratory failure, present on admission, improving. - Chronic respiratory alkalosis with an acute respiratory acidosis - Secondary to exacerbation of COPD, likely acute pneumonia, and sepsis - Original ABG showed pH 7.325, pCO2 47.4, pO2 83.1, and HCO3 24 - Patient does not use oxygen at home but has chronic obstructive pulmonary disease - He initially required a BiPAP but now oxygen saturation 89% on room air - Continue supplemental oxygen and respiratory support Community acquired bacterial pneumonia, present on admission, active. - Probable haemophilus influenzae community acquired pneumonia based on sputum culture. Ruled out health care associated pneumonia but patient was discharged from hospital on 07/29/16, which is over 30 days ago. Originally concerned for aspiration pneumonia as previous pneumonia and x-ray showed a right lower lobe consolidation. However, pt had a modified barium swallow that did not show signs of aspiration and swallow evaluation. - Patient had a fever at home and reports a productive cough - Strep pneumoniae and legionella antigens negative - Procalcitonin mildly elevated at 0.17 and decreased to 0.13 today - Sputum culture shows growth of Haemophilus influenzae, sensitive to ceftriaxone - MRSA screen negative - Speech therapy gave recommendation for regular foods, natural nectars with meals, and thin liquids between meals after oral care. - Discontinued IV vancomycin and Zosyn as MRSA was negative - Discontinued IV levofloxacin, which was to cover for health care associated pneumonia and to cover for atypical bacteria - Started ceftriaxone 2000 mg IV every 24 hours to complete a 5 day IV antibiotic course. Today is day 3. Chronic obstructive pulmonary disease, acute exacerbation, present on admission , active. - Pt reports a worsening cough and no improvement with at home nebulizer and inhaler. No at home oxygen use. Former smoker with 25 pack year history. - Antibiotics as above - Continue Flovent inhaler BID - Continue DuoNebs scheduled QID while awake - Albuterol nebulizer every 2 hours as needed - Decrease prednisone 40 mg once daily - Goal oxygen saturation of 88-92% Diabetes mellitus type II insulin dependent, inadequately controlled - HgbA1c 8.4% on 07/26/2016 and 10% during this hospital stay - At home, pt takes Insulin NPH/Lispro 75/25, 24 units BIDAC - Diabetes inpatient education - Education about correctional insulin scale for patient's daughter - Discontinued insulin drip - Started NPH 35 units BID with Lispro 6 units every meal with a high dose correctional scale - Continue to monitor and adjust accordingly Chronic diastolic heart failure, present on admission, stable. - Grade 2 diastolic dysfunction seen on echocardiogram in 07/2016 as above - Given IV normal saline in context of acute sepsis - Continue beta genny and statin as above - Continue aspirin 81 mg once daily - Monitor daily weights and I&Os - Patient's daughter requested discussion with palliative care about patient and patient's family's goals of care. - Palliative care consulted and following. Their time and recommendations are appreciated. Chronic hypertension, present on admission, stable. - He no longer takes an ACEI/ARB due to acute kidney injury at previous hospitalization - Continue carvedilol 3.125 mg BIDWM Chronic hyperlipidemia, present on admission, stable. - Continue statin therapy Elevated troponin of unknown significance, acute on chronic, present on admission, resolved. - Elevated in the past during previous admissions in 04/2016 and 07/2016. - Most likely due to demand ischemia with known minor coronary artery disease seen on cardiac catheterization in 2007 in the setting of an acute infection/ stressor. - Pt denies chest pain and EKG did not show concerning ST segment changes - Elevated minimally today at 0.018 and decreased to negative times 2 - Continue beta genny, statin, and aspirin Disposition: Likely discharge home in next 1-3 days pending continued improvement with possible home health services. VTE Prophylaxis: Sub-Q Heparin (Unfractionated) VTE Mechanical Devices: Intermittant Pneumatic CD Resuscitation Status: Limited Interventions Attending Statement Patient seen and examined with house staff. Agree with all attached documentation. Tamie Bethea DO September 08, 2016 14:13 Srinivas Morgan MD September 09, 2016 07:42
[2016-09-08] MEDS: cefTRIAXone Inj 2,000 MG in Dextrose 5% Minibag Plus 50 ML IV SCH (16:00)
--- NOTE | 2016-09-08 16:09 | PCM.CONPAL ---
Date of Service September 08, 2016 Date of Hospital Admission: September 06, 2016 at 13:07 Date of Palliative Consult: September 08, 2016 Requesting Provider: Chong De La Cruz DO Reason Palliative Care Consult: Advance Care Planning, Goals of Care Discussion Hospital Unit @time of consult: Progressive Care Palliative Care Recommendation Summary of palliative recommendations: -Symptom management (Pain/other) Dyspnea- reviewed probably primary pulmonary but also evidence of cardiac component. No evidence of aspirating during lunch today and had barium swallow and speech eval. Monitor response to steroids--including when they are tapered and d/shasha. Will probably benefit from home O2 ? if possible to get some pulm rehab for pt and family education. ?PFTs ? 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 ?cardiology consultation- was scheduled but back in hospital DM- poor control but I think this relates to illness and prednisone. did do better when being seen by Dr. Patel Q4-6 weeks and consider restarting this. Cognitive decline- slow and well compensated for by family support. GOAL of Care- wants to stay at home. If continues to have repeated hospitalization --then worse prognosis and would raise ? of hospice. for now would only aim for med management. -DPOA/Advanced Directives/POLST-has AD/but they paln on doing this over-- they have the paperwork--reviewed. POLST reviewed and completed DNR/DNI/no FT and limited interventions. -Family/emotional support-strong with good support for each other, good # of friends -Spiritual support-not reviewed Additional Medical Diagnoses with primary management by Hospitalist team include : Recurrent pneumonia- not evident on recent CXR but now ?IS lung ds. COPD CHF-diastolic DM poor control Problems: End of Life Preferences DNR/DNI/no feeding tube Goals of Fpc with support of family Resuscitation Status Resuscitation Status: DNR/DNI:Do Not Resuscitate/Intubate Limited Interventions: BiPAP, Medications and IV Fluid POLST Updates/Changes Previous POLST?: No Artificially Admin Nutrition: No Artifical Nutrition by Tube POLST Discussed with: Patient POLST Review Outcome: New Form Completed . Advanced Care Planning Address: POLST, Code status change, Durable Power of Heel Caser (reviewed- and then his 2 children- daughter 1st then son.) Pain: None Symptom management: Dyspnea Pt History History of Present Illness PALLIATIVE CARE CONSULTATION reason: goals of care, family request,code status discussion PCP Dr. Gutierrez Mr. Hank Wynn is an 89 year old man with history of chronic obstructive pulmonary disease, diabetes mellitus type II insulin dependent, hypertension, hyperlipidemia, and pneumonia who presented to the emergency department via emergency medical services today for fever, lethargy, cough, and dyspnea. He was hospitalized with note of H.influenza in his sputum. Prior he had pneumococcal in sputum in Apr 2016 admission and another admission for RLL pneumonia in July 2016. He had been on prednisone then tapered off but unclear if it helped pulmonary process. It did make his DM harder to manage. He had known dx of "emphysema" but was relatively asymptomatic until this past 1-2 yrs when he started to use more chest/strap muscles to breath. He also decreased his activity over this period-not going out to garden and progressively becoming more sedentary at home. He sleeps well at night and is napping more in daytime. Appetite is good and weight is fairly stable. He had no known heart ds until his recent admissions. He has no complaint of pain and is not SOB even when sats are in the low 80's. Has had decrease in mental acuity over the past 1-2 yrs He has not snored in years and his has not witness apnea.He is an exsmoker 1 PPD for about 20-25 yrs discontinuing in his mid 40's He had PFT's in 2006 FEV1 of 1.53-46% ECHO 08/02- mild LVH with EF 55-60% and + diastolic dysfxn. BNP on admit [address] He lives with his of over 60 yrs with his daughter living across the street and son [address]. 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 [place] Responsive Patient Symptoms Pain (current): None Pain (maximium): None Tiredness/Fatigue: Moderate Nausea: None Depression: None Anxiety: None Drowsiness/Sleepiness: Moderate Anorexia: None Shortness of Breath: Moderate Palliative Performance Scale PPS Patient Status: Current PPS Ambulation: Reduced PPS Activity: Unable to do most activity PPS Self-Care: Full Self Care PPS Intake: Normal PPS Conscious Level: Full or confusion Performance Scale: 80% Allergy Allergies Reviewed: Yes Medications Current Medications: Current Medications Pharmacy Consult 1 ea 1 ea DAILY XX; Start 09/07/16 at 08:30; Stop 09/07/16 at 08:30; Status DC Piperacillin Sod/ Tazobactam Sod 3.375 gm/Dextrose/ Water 50 ml @ 12.5 mls/hr Q12H IV Last administered on 09/07/16 10:35; Admin Dose 12.5 MLS/HR; Start at 22:00; Stop 09/07/16 at 14:43; Status DC Levofloxacin/ Dextrose/Premix 150 ml @ 100 mls/hr Q24 IV Last administered on 08:48; Admin Dose 100 MLS/HR; Start 09/07/16 at 08:30; Stop 09/08/16 at 09:34; Status DC Prednisone 60 mg DAILY PO Last administered on 09/08/16 09:53; Admin Dose 60 MG ; Start 09/07/16 at 08:30; Stop 09/08/16 at 11:09; Status DC Insulin Human Lispro Nutritional Dose to be given pr... [facility] SUBQ Last administered on 09/07/16 20:47; Admin Dose 10 UNIT; Start 09/06/16 at 17:30; Stop 09/08/16 at 02:39; Status DC Insulin Human NPH 14 unit 14 unit BIDAC SUBQ Last administered on 09/07/16 08: 49; Admin Dose 14 UNIT; Start 09/06/16 at 16:30; Stop 09/07/16 at 14:42; Status DC Vancomycin HCl/ Sodium Chloride 250 ml @ 166.667 mls/hr Q12H IV Last administered on 09/06/16 21:45; Admin Dose 166.667 MLS/HR; Start 09/06/16 at 21 :00; Stop 09/07/16 at 07:22; Status DC Aspirin 81 mg DAILY PO Last administered on 09/08/16 09:52; Admin Dose 81 MG; Start 09/07/16 at 08:30 Carvedilol 3.125 mg BIDWM PO Last administered on 09/08/16 09:52; Admin Dose 3.125 MG; Start 09/06/16 at 17:30 Fluticasone Propionate 1 puff BID INHALATION Last administered on 09/08/16 09: 54; Admin Dose 1 PUFF; Start 09/06/16 at 20:30 Atorvastatin Calcium 5 mg HS PO Last administered on 09/07/16 20:16; Admin Dose 5 MG; Start 09/06/16 at 21:00 Non-Formulary Medication 1 capsule DAILY PO; Start 09/07/16 at 08:30; Status UNV Ascorbic Acid 1,000 mg DAILY PO Last administered on 09/08/16 09:53; Admin Dose 1,000 MG; Start 09/07/16 at 08:30 Heparin Sodium (Porcine) 5,000 unit Q8 SUBQ Last administered on 09/08/16 09:54 ; Admin Dose 5,000 UNIT; Start 09/07/16 at 00:30 Albuterol 1.25 mg Q2H PRN NEB; Start 09/07/16 at 08:15; Stop 09/07/16 at 15:00 ; Status DC Insulin Human NPH 10 unit BIDAC SUBQ; Start 09/07/16 at 12:10; Stop 09/07/16 at 14:42; Status DC Insulin Human NPH 24 unit BIDAC SUBQ Last administered on 09/07/16 17:39; Admin Dose 24 UNIT; Start 09/07/16 at 16:30; Stop 09/08/16 at 02:39; Status DC Albuterol 2.5 mg 2.5 mg Q2H PRN NEB; Start 09/07/16 at 15:00 Insulin Human Regular 100 unit/ Sodium Chloride 101 ml @ 0 mls/hr Q0M IV Last administered on 09/08/16 03:31; Admin Dose 4.5 MLS/HR; Start 09/08/16 at 02:28 ; Stop 09/08/16 at 11:09; Status DC Dextrose/Sodium Chloride 1,000 ml @ 50 mls/hr Q20H PRN IV Last administered on 09/08/16 03:29; Admin Dose 50 MLS/HR; Start 09/08/16 at 03:10; Stop 09/08/16 at 11:09; Status DC Levofloxacin 750 mg Q2D@0830 PO; Start 09/10/16 at 08:30; Stop 09/10/16 at 08:30 ; Status DC Insulin Human NPH 35 unit BIDAC SUBQ; Start 09/08/16 at 16:30 Insulin Human Lispro Nutritional Dose to be given pr... [facility] SUBQ Last administered on 09/08/16t 12:06; Admin Dose 10 UNIT; Start 09/08/16 at 12:00 Prednisone 40 mg 40 mg DAILY PO; Start 09/09/16 at 08:30 Ceftriaxone Sodium/Dextrose/ Water 50 ml @ 100 mls/hr Q24H IV; Start 09/08/16 at 13:50 Scheduled Ascorbic Acid (Vitamin C) 1,000 Mg Tab.chew 1,000 MG PO DAILY Aspirin (Aspirin) 81 Mg Tablet 81 MG PO DAILY Carvedilol (Carvedilol) 3.125 Mg Tablet 3.125 MG PO BIDWM Fluticasone Propionate (Flovent HFA 110 mcg) 12 Gm Aer.w.adap 2 PUFFS IH BID Gluc 2Kcl/Chondr/Magaly Hy/Hy AC (Glucosamine & Chondroitin Cap) 1 Each Capsule 1 EACH PO DAILY Insulin NPL/Insulin Lispro (HumaLOG 75/25 U100 Insulin Kwikpen) 100 Unit/1 Ml Insuln.pen 24 UNIT SUBQ BIDAC Ipratropium/Albuterol Sulfate (Iprat-Albut 0.5-3(2.5) mg/3 mL Inhalant Soln) 3 Ml Ampul.neb 3 ML NEB QIDWA Lovastatin (Lovastatin) 20 Mg Tablet 20 MG PO HS Multivit-Min/FA/Lutein/Zeaxant (Macular Vitamin Tablet) 1 Each Tablet 3 TABLET PO DAILY [place]-3 Fatty Acids/Fish Oil (Fish Oil 1,000 mg Softgel) 1 Each Capsule 1 CAPSULE PO DAILY Scheduled PRN Glucagon,Human Recombinant (Glucagon Emergency Kit) 1 Mg Kit 1 MG IM DAILY PRN PRN Hypoglycemia Objective Findings Exam Vital Sign - Last Date Time Temp Pulse Resp B/P Pulse Ox O2 Delivery O2 Flow Rate FiO2 09/08/16 15:40 73 20 88 Room Air 09/08/16 12:09 36.5 130/69 09/07/16 23:05 1.00 09/06/16 11:56 40 Intake and Output 09/07/16 09/07/16 09/08/16 Cumulative From/Thru 15:00 23:00 07:00 09/06/16 05:08 - 09/08/16 06:42 Intake Total 1120 ml 1140 ml 4657 ml Output Total 800 ml 675 ml 2175 ml Balance 320 ml 465 ml 2482 ml Intake Oral 570 ml 650 ml 1670 ml IV Total 550 ml 490 ml 2987 ml Output Urine Total 800 ml 675 ml 2175 ml # Voids 1 # Bowel Movements 1 General: Alert, Oriented, Person, Place, Other (jokes) HEENT: PERRLA, EOMI, Scleral Anicteric, Other (ectropia lower lids) Heart: Regular Rate/Rhythm Lungs: Diminished Neuro: Cranial Nerve 3-12 Intact Extremities: No Edema Skin: Other (dense crusted lesion R cheek with dried blood so difficult to assess re malignancy potential) Lab/Diagnostics Lab and Imaging results reviewed in detail in EMR. Patient/Family Conference Members Present Family Members Present Nia, daughter- Yesi, granddaughter patient Medical Team Members Present? Wallace [facility], Beto De La Torre R2 FP Discussion/Goals of Care Discussion FAMILY UNDERSTANDING OF DISEASE: Family requesting more information regarding COPD particularly but also cardiac issues and prognosis. This is relatively new for them. Realistic re ds and now 3 hospitalizations in 5 months. Reviewed consideration re further eval- pulm with PFT and pulm consult and cardiac follow up. Raised ? re pulmonary rehab.primarily to educate family so they can support him. DISEASE PROGRESSION/EVIDENCE OF DECLINE: Cognitive decline over 1-2 yrs, Pulm and probable cardiac decline over past 6-12 months. SYMPTOM BURDEN: Moderately severe and probably limiting activity to compensate. GOALS: They was to stay in their own home with support of family. His is in good health and helps him. Also has other family support so I believe it likely this can happen. HOPES/WORRIES: Time spent Total time 65 minutes; >50% face to face with patient and/or family, providing counselling regarding plans and recommendations, and in care coordination with his/her medical teams. time spent in review of chart and history, discussion with pt and family and communication to SS/CM and with hospitalist team I also spent an additional [ ] minutes counseling for advanced care planning with the patient/the patients family/the surrogate decision maker. copies to: Bandar Gutierrez Deborah A MD September 08, 2016 16:09
[2016-09-08] MEDS: Insulin Human NPH 100 Unit/mL 3 mL Inj SUBQ SCH (17:40)
[2016-09-09] VITALS (12 sets, daily range): BP systolic 124–157; BP diastolic 78–89; PULSE 61–96; RESP 18–24; O2SAT 89–93
[2016-09-09 02:49] LABS: BASOPHILS % (AUTO) 0.3 % (0-3); EOSINOPHILS % (AUTO) 0 % (0-5); MONOCYTES % (AUTO) 6.6 % (4-12); Mean Corpuscular Hemoglobin 29.8 pg (27.0-35.0); Mean Corpuscular Volume 85.7 fL (81-100); Platelet Count 276 bil/L (150-400)
[2016-09-09] MEDS: Ascorbic Acid 500 mg Tablet PO SCH (08:04)
[2016-09-09] MEDS: Fluticasone 250 mCg Inhaler INHALATION SCH ×2 (08:05→20:33)
[2016-09-09] MEDS: Omega-3 Fatty Acids 1,000 mg Capsule PO SCH (08:05)
[2016-09-09] MEDS: predniSONE 20 mg Tablet PO SCH (08:05)
[2016-09-09] MEDS: Heparin 5,000 Unit/mL Inj SUBQ SCH ×2 (08:06→17:40)
[2016-09-09] MEDS: Insulin Human NPH 100 Unit/mL 3 mL Inj SUBQ SCH (08:08)
[2016-09-09] MEDS: Albuterol-Ipratropium 3 mL Inhalation Solution NEB SCH ×4 (08:15→20:08)
[2016-09-09] MEDS: Insulin LISPRO 300 Unit/3 mL Inj SUBQ SCH ×4 (08:16→22:00)
--- NOTE | 2016-09-09 13:13 | PCM.PNMED ---
Subjective Date of Service September 09, 2016 Subjective Mr. Hank Wynn is an 89 year old man with history of chronic obstructive pulmonary disease, diabetes mellitus type II insulin dependent, hypertension, hyperlipidemia, and pneumonia who presented to the emergency department via emergency medical services today for fever, lethargy, cough, and dyspnea. Today is hospital day 4. He is feeling much better this morning. He is still coughing but he feels like he is breathing better. He does have swelling in his legs. He has not had PFTs before but has been diagnosed with emphysema for many years. Exam Vital Signs Vital Sign - Last Date Time Temp Pulse Resp B/P Pulse Ox O2 Delivery O2 Flow Rate FiO2 09/09/16 05:09 61 09/09/16 04:54 36.4 20 154/78 93 Nasal Cannula 09/08/16 23:48 1.00 09/06/16 11:56 40 Intake and Output 09/08/16 09/08/16 09/09/16 Cumulative From/Thru 15:00 23:00 07:00 09/06/16 05:08 - 09/08/16 20:24 Intake Total 1264 ml 5921 ml Output Total 450 ml 2625 ml Balance 814 ml 3296 ml Intake Oral 820 ml 2490 ml IV Total 444 ml 3431 ml Output Urine Total 450 ml 2625 ml # Voids 1 # Bowel Movements 1 Exam General: Elderly gentlemen sitting partially up in bed on room air, in no acute distress, well-developed, thin, appropriately interactive HEENT: Normocephalic, atraumatic. External ears without defect. Anicteric sclerae, moist conjunctivae, and no lid lag. Oropharynx free of erythema and cobble stoning with moist mucosa. Neck: Supple with full range of motion. Trace jugular venous distension. No lymphadenopathy or thyromegaly. Cardiovascular: Regular rate and rhythm with no murmurs, rubs, or gallops appreciated Pulmonary: Bilateral scattered crackles at lung bases with good air movement. Normal respiratory effort without use of accessory muscles. Abdomen: Bowel tones present. Soft, nontender, nondistended. Extremities: Trace pitting, pedal edema bilaterally. No clubbing, cyanosis, edema, or lymphadenopathy appreciated. Skin: Normal temperature, turgor, and texture; no rash, ulcers, or subcutaneous nodules appreciated. Neurological: Cranial nerves grossly intact. Normal muscle strength grossly. No known gait impairment. Psychiatric: Normal mood and affect. Alert and oriented to person and place and disoriented to time. IVs and Medications Medications Reviewed: Medications were reviewed in detail Lab and Diagnostics Result Diagram: 09/09/1621009/09/16210 X-Rays, CTs and MRIs PROCEDURE: X-RAY CHEST ONE VIEW, PORTABLE IMPRESSION: Suspect chronic interstitial lung disease. Superimposed acute pneumonic process such as pneumonia could be obscured. Approved by: Eleazar Zepeda M.D. on 09/06/2016 at 9:42 PROCEDURE: X-RAY BARIUM SWALLOW WITH FOOD & VIDEOGRAPHY IMPRESSION: No laryngeal penetration or tracheobronchial aspiration. Approved by: Kathy Mcmillan MD, PhD on 09/03/2016 at 16:46 12-lead ECG LBBB and frequent PAC, similar to EKG on 07/26/16 Time: 05:16 Interpreted by: ED physician Normal ECG Interpretation: Normal rate (86), Normal sinus rhythm Cardiac Echo Impressions Echocardiogram Report (08/05/2016) Interpretation Summary 1) Mild concentric left ventricular hypertrophy with normal size, and systolic function (EF 55-60%). 2) Septal motion consistent with LBBB but no other wall motion abnormalities are present. 3) Grade 2 diastolic dysfunction (pseudonormalization) present. 4) Normal right ventricular size and function. 5) There is systolic anterior motion of the chordal apparatus. 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 6) No prior Echo available for comparison. Reading Physician:02: 20 PM Assessment & Plan Mr. Hank Wynn is an 89 year old man with history of chronic obstructive pulmonary disease, diabetes mellitus type II insulin dependent, hypertension, hyperlipidemia, and pneumonia who presented to the emergency department via emergency medical services today for fever, lethargy, cough, and dyspnea. Today is hospital day 2. Acute on chronic hypoxemic and hypercapnic respiratory failure, present on admission, improving. - Chest x-rays have been consistent with chronic interstitial changes as well as a previous diagnosis of COPD - Chronic respiratory alkalosis with an acute respiratory acidosis - Secondary to exacerbation of COPD, likely acute pneumonia, and sepsis - Original ABG showed pH 7.325, pCO2 47.4, pO2 83.1, and HCO3 24 - Patient does not use oxygen at home but has chronic obstructive pulmonary disease - He initially required a BiPAP but now oxygen saturation 89% on room air - Continue supplemental oxygen and respiratory support - Consider pulmonary rehab, pulmonology consult, and PFTs as an outpatient - Home oxygen assessment tomorrow morning - Physical therapy evaluation - Patient is a high risk for readmission Acute sepsis, present on admission, resolved. - Met criteria with HR 99 bpm, respiratory rate 36, and suspected infection of pneumonia - Urinalysis negative nitrites and leukocyte esterase - Viral respiratory PCR negative - Chest x-ray as above - Lactic acid within normal limits - Sputum culture shows growth of Haemophilus influenzae, sensitive to ceftriaxone - Antibiotics as below - IV fluids discontinued - Continue to monitor Community acquired bacterial pneumonia, present on admission, active. - Probable haemophilus influenzae community acquired pneumonia based on sputum culture. Ruled out health care associated pneumonia but patient was discharged from hospital on 07/29/16, which is over 30 days ago. Originally concerned for aspiration pneumonia as previous pneumonia and x-ray showed a right lower lobe consolidation. However, pt had a modified barium swallow that did not show signs of aspiration and swallow evaluation. - Patient had a fever at home and reports a productive cough - Strep pneumoniae and legionella antigens negative - Procalcitonin mildly elevated at 0.17 and decreased to 0.13 today - Sputum culture shows growth of Haemophilus influenzae, sensitive to ceftriaxone - MRSA screen negative - Speech therapy gave recommendation for regular foods, natural nectars with meals, and thin liquids between meals after oral care. - Discontinued IV vancomycin and Zosyn as MRSA was negative - Discontinued IV levofloxacin, which was to cover for health care associated pneumonia and to cover for atypical bacteria - Started ceftriaxone 2000 mg IV every 24 hours to complete a 5 day IV antibiotic course. Today is day 4. Diabetes mellitus type II insulin dependent, inadequately controlled - HgbA1c 8.4% on 07/26/2016 and 10% during this hospital stay - At home, pt takes Insulin NPH/Lispro 75/25, 24 units BIDAC - Diabetes inpatient education - Education about correctional insulin scale for patient's daughter - Discontinued insulin drip - Increased NPH 40 units BID with Lispro 10 units every meal with a high dose correctional scale - Continue to monitor and adjust accordingly Chronic obstructive pulmonary disease, acute exacerbation, present on admission , active. - Pt reported a worsening cough and no improvement with at home nebulizer and inhaler. No at home oxygen use. Former smoker with 25 pack year history. - Antibiotics as above - Continue Flovent inhaler BID - Continue DuoNebs scheduled QID while awake - Albuterol nebulizer every 2 hours as needed - Decrease prednisone 40 mg once daily - Goal oxygen saturation of 88-92% - Assessment for home oxygen - Consider shelter steroids and/or prophylactic antibiotics Chronic diastolic heart failure, present on admission, stable. - Grade 2 diastolic dysfunction seen on echocardiogram in 07/2016 as above - Given IV normal saline in context of acute sepsis - Continue beta genny and statin as above - Continue aspirin 81 mg once daily - Monitor daily weights and I&Os - Patient's daughter requested discussion with palliative care about patient and patient's family's goals of care. - Palliative care consulted and following. Their time and recommendations are appreciated. Chronic hypertension, present on admission, stable. - He no longer takes an ACEI/ARB due to acute kidney injury at previous hospitalization - Continue carvedilol 3.125 mg BIDWM - Consider resuming an ACEI/ARB if pt is hypertensive and kidney function is stable Chronic hyperlipidemia, present on admission, stable. - Continue statin therapy Elevated troponin of unknown significance, acute on chronic, present on admission, resolved. - Elevated in the past during previous admissions in 04/2016 and 07/2016. - Most likely due to demand ischemia with known minor coronary artery disease seen on cardiac catheterization in 2007 in the setting of an acute infection/ stressor. - Pt denies chest pain and EKG did not show concerning ST segment changes - Elevated minimally today at 0.018 and decreased to negative times 2 - Continue beta genny, statin, and aspirin Disposition: Likely discharge home in next 1-3 days pending continued improvement with possible home health services. VTE Prophylaxis: Sub-Q Heparin (Unfractionated) VTE Mechanical Devices: Intermittant Pneumatic CD Resuscitation Status: DNR/DNI:Do Not Resuscitate/Intubate Limited Interventions: BiPAP, Medications and IV Fluid Attending Statement Patient seen and examined with house staff. Agree with all attached documentation. Tamie Bethea DO September 09, 2016 06:34 Srinivas Morgan MD September 09, 2016 16:21
[2016-09-09] MEDS: cefTRIAXone Inj 2,000 MG in Dextrose 5% Minibag Plus 50 ML IV SCH (13:41)
[2016-09-09] MEDS ORDERED: Insulin Human NPH 100 Unit/mL 3 mL Inj SUBQ SCH (16:30)
--- NOTE | 2016-09-09 18:52 | PCM.PALLBR ---
Palliative Care Recommendation Summary of palliative recommendations: 09/09/16 Dyspnea persists-Has plenty of room on BP and labs to push diuresing and coreg. It is more tachypnea since he does not sense the SOB-reviewed with pt/family. Daughter very interested in education re diet, lung ds, heart ds education. May benefit from CHF clinic since pulm rehab much more difficult to access. Reviewed regular dosing of nebulizer, goal for regular exercise as tolerated. Goals of care and code status established. POLST completed-DNR/DNI/ no TF. Goal is to try and stay out of hospital. If he can't then prognosis would be poorer than predicted now and he would likely qualify for hospice--on edge at this point. Offered OP palliative care follow up if that would be helpful -Symptom management (Pain/other) Dyspnea- reviewed probably primary pulmonary but also evidence of cardiac component. No evidence of aspirating during lunch today and had barium swallow and speech eval. Monitor response to steroids--including when they are tapered and d/shasha. Will probably benefit from home O2 ? if possible to get some pulm rehab for pt and family education. ?PFTs ? pulmonary consult to advise re ?half-way steroids and possible regular dosing of antibiotic. ?cardiology consultation- was scheduled but back in hospital DM- poor control but I think this relates to illness and prednisone. did do better when being seen by Dr. Patel Q4-6 weeks and consider restarting this. Cognitive decline- slow and well compensated for by family support. GOAL of Care- wants to stay at home. If continues to have repeated hospitalization --then worse prognosis and would raise ? of hospice. for now would only aim for med management. -DPOA/Advanced Directives/POLST-has AD/but they paln on doing this over-- they have the paperwork--reviewed. POLST reviewed and completed DNR/DNI/no FT and limited interventions. -Family/emotional support-strong with good support for each other, good # of friends -Spiritual support-not reviewed Additional Medical Diagnoses with primary management by Hospitalist team include : Recurrent pneumonia- not evident on recent CXR but now ?IS lung ds. COPD CHF-diastolic DM poor control Problems: End of Life Preferences DNR/DNI/no feeding tube Goals of Snf with support of family Resuscitation Status Resuscitation Status: DNR/DNI:Do Not Resuscitate/Intubate Limited Interventions: BiPAP, Medications and IV Fluid POLST Updates/Changes Previous POLST?: No Artificially Admin Nutrition: No Artifical Nutrition by Tube POLST Discussed with: Patient POLST Review Outcome: New Form Completed . Symptom management: Dyspnea Total time 40 minutes; >50% face to face with patient and/or family, providing counselling regarding plans and recommendations, and in care coordination with his/her medical teams. I also spent an additional [ ] minutes counseling for advanced care planning with the patient/the patients family/the surrogate decision maker. copies to: Bandar Gutierrez DO Palliative Brief Note Date of Service September 09, 2016 . 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 Still very tachypneic but he does not define SOB. Appetite great. O: sats 88-91 on NC O2 lungs decreased BS no edema lab- mild anemia, Cr wnl, BG 298 albumin 2.5 Annie Cummins MD September 09, 2016 18:52
[2016-09-10 01:10] VITALS: BP 135/78; PULSE 66; RESP 20; O2SAT 92
[2016-09-10] MEDS: Heparin 5,000 Unit/mL Inj SUBQ SCH ×2 (01:16→09:25)
[2016-09-10 03:10] LABS: BASOPHILS % (AUTO) 0.3 % (0-3); EOSINOPHILS % (AUTO) 0.1 % (0-5); MONOCYTES % (AUTO) 8.5 % (4-12); Mean Corpuscular Hemoglobin 29.6 pg (27.0-35.0); Mean Corpuscular Volume 84.8 fL (81-100); NEUTROPHILS % (AUTO) 76.6 % (40-74); Platelet Count 291 bil/L (150-400)
[2016-09-10] MEDS: Insulin LISPRO 300 Unit/3 mL Inj SUBQ SCH ×2 (07:54→13:16)
[2016-09-10] MEDS ORDERED: levoFLOXacin 750 mg Tablet PO SCH (08:30)
[2016-09-10 08:45] VITALS: BP 139/84; PULSE 71; RESP 16; O2SAT 90
[2016-09-10] MEDS: Albuterol-Ipratropium 3 mL Inhalation Solution NEB SCH ×2 (08:49→11:12)
[2016-09-10 08:50] VITALS: PULSE 63; RESP 18; O2SAT 91
[2016-09-10 09:00] VITALS: BP 135/78; PULSE 63; RESP 18; O2SAT 91
[2016-09-10] MEDS ORDERED: Insulin Human NPH 100 Unit/mL 3 mL Inj SUBQ ONE (09:20)
[2016-09-10] MEDS: Omega-3 Fatty Acids 1,000 mg Capsule PO SCH (09:22)
[2016-09-10] MEDS: predniSONE 20 mg Tablet PO SCH (09:23)
[2016-09-10] MEDS: Ascorbic Acid 500 mg Tablet PO SCH (09:24)
[2016-09-10] MEDS: Fluticasone 250 mCg Inhaler INHALATION SCH (10:29)
[2016-09-10] MEDS ORDERED: INSU100I16 SUBQ (10:44)
[2016-09-10] MEDS ORDERED: PRED-508 PO (10:44)
[2016-09-10 11:13] VITALS: PULSE 70; RESP 20; O2SAT 91
--- NOTE | 2016-09-10 11:16 | PCM.DIMED ---
Tamie Bethea DO 09/10/16 0653: Discharge Instructions Date of Service September 10, 2016 Dates of Hospitalization September 06, 2016 at 13:07 Discharge Diagnosis Discharge Diagnosis You have pneumonia caused by a bacteria called Haemophilus influenzae and were treated with antibiotics. You also had a COPD flare. Diet Discharge Diet: Heart Healthy, Diabetic Activity Discharge Activity: Home Health Phyical Therapy Call your provider Call your provider for: Fever or Chills, Shortness of breath, Bleeding, Chest pain, Vomitting, Excessive diarrhea, Weakness (unilateral) Patient Instructions Patient Instructions Continue physical therapy with home health physical therapy 2-3 times per week for about 4 weeks to progress to your baseline strength and balance. Start home health nursing for medication management for insulin, and diabetic, cardiac, and respiratory (post-pneumonia) assessment and teaching. Start home health medical services assistant to assess for patient's need for community resources or need for family assistance. Speech therapy recommends that you eat regular foods, have natural nectars with meals, and thin liquids between meals after oral care. Your caregivers should continue to give cues for slow intake and frequent oral care. You should be upright 20 minutes after a meal, stop eating or drinking if you are coughing, sit upright while eating and drinking, do oral care after meals, and do not use straws. Contact the cardiology office to reschedule your appointment. Continue taking carvedilol 3.125 mg twice per day, aspirin daily, and lovastatin daily. You finished an antibiotic course for pneumonia. You received antibiotics for 5 days while you were in the hospital. Today was your last day of antibiotics. For chronic lung conditions, you would benefit from having oxygen at home because your oxygen saturation dropped to 86% while you were walking. Your goal oxygen saturation is 88-92%. Continue to use your Flovent inhaler daily and to use your DuoNeb nebulizer treatments every 6 hours while you are awake. Continue a steroid taper by taking prednisone 20 mg once daily for 7 days starting tomorrow morning. For diabetes mellitus and blood sugar management, increase your insulin dose to 35 units of the Insulin NPL/Insulin Lipsro (HumaLog 75/25 pen) twice per day before meals. Consider following up with Dr. Patel, an etched circuit processor or marketing project specialist, every 4-6 weeks as you did in the past. Follow up with your primary care provider in 7-10 days. Discuss with your primary care provider about a possible pulmonology consultation and possibly getting pulmonary function tests. You had education provided by cardiopulmonary rehabilitation prior to leaving the hospital. Follow-up Provider: Bandar Gutierrez DO Follow-up with PCP in: 1 week CHF Clinic: Other (when first available) Srinivas Morgan MD 09/11/16 0740: Discharge Instructions Attending's Statement Patient seen and examined with house staff. Agree with all attached documentation. Tamie Bethea DO September 10, 2016 06:53 Srinivas Morgan MD September 11, 2016 07:40
--- NOTE | 2016-09-10 11:19 | PCM.PALLBR ---
Palliative Care Recommendation Summary of palliative recommendations: 09/10/16 Dyspnea and COPD/CHF. Reviewed with hospital team re possible referral for cardio-pulm rehab. for education for pt/family. POLST completed-to go home with pt. f/u with OP PC is available for pt and pt/family aware of this. Pt expecting discharge today. 09/09/16 Dyspnea persists-Has plenty of room on BP and labs to push diuresing and coreg. It is more tachypnea since he does not sense the SOB-reviewed with pt/family. Daughter very interested in education re diet, lung ds, heart ds education. May benefit from CHF clinic since pulm rehab much more difficult to access. Reviewed regular dosing of nebulizer, goal for regular exercise as tolerated. Goals of care and code status established. POLST completed-DNR/DNI/ no TF. Goal is to try and stay out of hospital. If he can't then prognosis would be poorer than predicted now and he would likely qualify for hospice--on edge at this point. Offered OP palliative care follow up if that would be helpful -Symptom management (Pain/other) Dyspnea- reviewed probably primary pulmonary but also evidence of cardiac component. No evidence of aspirating during lunch today and had barium swallow and speech eval. Monitor response to steroids--including when they are tapered and d/shasha. Will probably benefit from home O2 ? if possible to get some pulm rehab for pt and family education. ?PFTs ? pulmonary consult to advise re ?terminologist steroids and possible regular dosing of antibiotic. ?cardiology consultation- was scheduled but back in hospital DM- poor control but I think this relates to illness and prednisone. did do better when being seen by Dr. Patel Q4-6 weeks and consider restarting this. Cognitive decline- slow and well compensated for by family support. GOAL of Care- wants to stay at home. If continues to have repeated hospitalization --then worse prognosis and would raise ? of hospice. for now would only aim for med management. -DPOA/Advanced Directives/POLST-has AD/but they paln on doing this over-- they have the paperwork--reviewed. POLST reviewed and completed DNR/DNI/no FT and limited interventions. -Family/emotional support-strong with good support for each other, good # of friends -Spiritual support-not reviewed Additional Medical Diagnoses with primary management by Hospitalist team include : Recurrent pneumonia- not evident on recent CXR but now ?IS lung ds. COPD CHF-diastolic DM poor control Problems: End of Life Preferences DNR/DNI/no feeding tube Goals of Prison with support of family Resuscitation Status Resuscitation Status: DNR/DNI:Do Not Resuscitate/Intubate Limited Interventions: BiPAP, Medications and IV Fluid POLST Updates/Changes Previous POLST?: No Artificially Admin Nutrition: No Artifical Nutrition by Tube POLST Discussed with: Patient POLST Review Outcome: New Form Completed . Advanced Care Planning Address: POLST Symptom management: Dyspnea Total time 20 minutes; >50% face to face with patient and/or family, providing counselling regarding plans and recommendations, and in care coordination with his/her medical teams. I also spent an additional [ ] minutes counseling for advanced care planning with the patient/the patients family/the surrogate decision maker. copies to: Bandar Gutierrez DO Palliative Brief Note Date of Service September 10, 2016 . Pt feels improved. Tolerated walk in [place] although did desat to mid 80's. Appetite remains very good. He has no other complaints. O: decreased BS in process of nebulizer no edema oriented X3-excited to get home for w/e etc Annie Cummins MD September 10, 2016 11:19
[2016-09-10 12:17] VITALS: BP 149/85; PULSE 72; RESP 16; O2SAT 90
[2016-09-10] MEDS: cefTRIAXone Inj 2,000 MG in Dextrose 5% Minibag Plus 50 ML IV SCH (14:19)
[2016-09-10] MEDS ORDERED: CARV3.122 PO (15:02)
--- NOTE | 2016-09-10 16:33 | PCM.DC.MED ---
Discharge Summary Date of Service September 10, 2016 Dates of Hospitalization Date of Hospital Admission September 06, 2016 at 13:07 Date of Discharge: September 10, 2016 Providers: Admitting Physician: Ana Luisa Jacobsen MD Primary Care Physician: Bandar Gutierrez DO Attending Physician: Ana Luisa Jacobsen MD Diagnosis at Time of Discharge Diagnosis at Time of Discharge Acute on chronic hypoxemic and hypercapnic respiratory failure, present on admission, improving. Acute sepsis, present on admission, resolved. Community acquired bacterial pneumonia, present on admission, active. Diabetes mellitus type II insulin dependent, inadequately controlled Chronic obstructive pulmonary disease, acute exacerbation, present on admission , active. Chronic diastolic heart failure, present on admission, stable. Chronic hypertension, present on admission, stable. Chronic hyperlipidemia, present on admission, stable. Elevated troponin of unknown significance, acute on chronic, present on admission, resolved. Consultations Palliative care Procedures XRay, CTs & MRIs PROCEDURE: X-RAY CHEST ONE VIEW, PORTABLE IMPRESSION: Suspect chronic interstitial lung disease. Superimposed acute pneumonic process such as pneumonia could be obscured. Approved by: Eleazar Zepeda M.D. on 09/06/2016 at 9:42 PROCEDURE: X-RAY BARIUM SWALLOW WITH FOOD & VIDEOGRAPHY IMPRESSION: No laryngeal penetration or tracheobronchial aspiration. Approved by: Kathy Mcmillan MD, PhD on 09/03/2016 at 16:46 ECG 12 Lead LBBB and frequent PAC, similar to EKG on 07/26/16 Time: 05:16 Interpreted by: ED physician Normal ECG Interpretation: Normal rate (86), Normal sinus rhythm Cardiac Echo Impression Please make note of the date: Echocardiogram Report (08/05/2016) Interpretation Summary 1) Mild concentric left ventricular hypertrophy with normal size, and systolic function (EF 55-60%). 2) Septal motion consistent with LBBB but no other wall motion abnormalities are present. 3) Grade 2 diastolic dysfunction (pseudonormalization) present. 4) Normal right ventricular size and function. 5) There is systolic anterior motion of the chordal apparatus. 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 6) No prior Echo available for comparison. Reading Physician:02: 20 PM Brief History The following is taken from Dr. Horowitz's H&P dated 09/06/2016: Mr. Hank Wynn is an 89 year old man with history of chronic obstructive pulmonary disease, diabetes mellitus type II insulin dependent, hypertension, hyperlipidemia, and pneumonia who presented to the emergency department via emergency medical services today for fever, lethargy, cough, and dyspnea. He is accompanied by his and daughter. At the time of exam, patient was on BiPAP and was answering yes or no questions only. He reported that he had chills, cough, dyspnea, and fatigue. He did not have chest pain, abdominal pain, numbness, tingling, or focal weakness. His reports that he has a chronic cough that is usually not productive, but it was productive this morning of yellow sputum. She also reports that his temperature at home was 103.2 degree F prior to calling 911 around 3:00 AM, and his daughter then gave him two Tylenol. For the past 3 days, he has not had an appetite and had trouble breathing despite using his nebulizer four times per day and his inhaler twice per day. He also has nasal congestion and a decreased voice. This is the first time that he also had chills compared to the previous two times that he came to the hospital. He was not around anyone that they know was sick. He has had his influenza vaccine yearly and has had at least one pneumococcal vaccine. He is a former smoker with a 25 pack year history. He has not had any recent travel or animal exposures. He does not use oxygen at home. He was supposed to use oxygen at home previously, but does not like to use it. He had at one time used oxygen at home for years. He finished the antibiotics and the prednisone prescribed from his last hospitalization. He finished the prednisone about 10-14 days ago. He has not had confusion, weakness, night sweats, nausea, vomiting, diarrhea, constipation, dysuria, or bleeding in his urine or stools. In the emergency department, he was started on BiPAP and given a dose of methylprednisolone 125 mg IV once, levofloxacin 750 mg IV once, vancomycin 1, 500 mg IV once, and piperacillin/tazobactam 3.375 g IV once. He was also given a nebulizer treatment of albuterol/ipratropium. He was given a dose of lorazepam 0.5 mg IV once. Patient was hospitalized in April 2016 and July 2016. In April 2016, he was admitted for positive Streptococcus pneumoniae sputum, Klebsiella urinary tract infection, and influenza A. In July 2016, he was admitted for right lower lobe pneumonia seen on CT scan. Hospital Course See below for detailed documentation regarding specific diagnostic and therapeutic interventions, but briefly: Patient presented with acute COPD exacerbation requiring BiPAP for a brief period, and near continuous oxygen supplementation thereafter throughout his hospitalization. Clinical and laboratory findings confirm bacterial pneumonia ( H. influenzae). 5 day course of IV antibiotics completed on day of discharge. Patient mobility and respiratory status stabilized and improved over the course of his hospitalization. As a part of the therapeutic intervention for his COPD exacerbation, patient was placed on high-dose glucocorticoids in the form of prednisone. As a result of this intervention, patient's blood glucose was uncontrolled/difficult to control for several days over the course of the hospitalization, and did require for a brief period of time IV insulin. On the day of discharge patient's blood glucose is better controlled, and will be discharged on increased dose of his home 75/25 NPH/lispro insulin pens. Home O2 and initiated, as his home health supportive care. Acute on chronic hypoxemic and hypercapnic respiratory failure, present on admission, resolved. - Chest x-rays have been consistent with chronic interstitial changes as well as a previous diagnosis of COPD - Chronic respiratory alkalosis with an acute respiratory acidosis (acute component now resolved) - Secondary to exacerbation of COPD, acute pneumonia, and sepsis - Original ABG showed pH 7.325, pCO2 47.4, pO2 83.1, and HCO3 24 - Patient does not use oxygen at home but has chronic obstructive pulmonary disease - He initially required a BiPAP but now oxygen saturation 89-91% on room air - Continue supplemental oxygen and respiratory support - Consider pulmonary rehab, pulmonology consult, and PFTs as an outpatient - Home oxygen assessment determined requirement for home oxygen, and is being provided through [employer] - Physical therapy recommend physical therapy through home health organization Acute sepsis, present on admission, resolved. - Met criteria with HR 99 bpm, respiratory rate 36, and suspected infection of pneumonia - Urinalysis negative nitrites and leukocyte esterase - Viral respiratory PCR negative - Chest x-ray as above - Lactic acid within normal limits - Sputum culture shows growth of Haemophilus influenzae, sensitive to ceftriaxone (completed 5 day course) - Antibiotics as below - IV fluids discontinued as patient's PO intake is good Community acquired bacterial pneumonia, present on admission, treated. -Strong suspicion of Haemophilus influenzae community acquired pneumonia based on sputum culture. Ruled out health care associated pneumonia but patient was discharged from hospital on 07/29/16, which is over 30 days ago. Originally concerned for aspiration pneumonia as previous pneumonia and x-ray showed a right lower lobe consolidation. However, pt had a modified barium swallow that did not show signs of aspiration and swallow evaluation. - Patient had a fever at home and reports a productive cough - Strep pneumoniae and legionella antigens negative - Procalcitonin mildly elevated at 0.17 and decreased to 0.13 - Sputum culture shows growth of Haemophilus influenzae, sensitive to ceftriaxone - MRSA screen negative - Speech therapy gave recommendation for regular foods, natural nectars with meals, and thin liquids between meals after oral care. - Discontinued IV vancomycin and Zosyn as MRSA was negative - Discontinued IV levofloxacin, which was to cover for health care associated pneumonia and to cover for atypical bacteria - Ceftriaxone 2000 mg IV every 24 hours to complete a 5 day. Completed 2016. Diabetes mellitus type II insulin dependent, inadequately controlled - HgbA1c 8.4% on 07/26/2016 and 10% during this hospital stay - At home, pt takes Insulin NPH/Lispro 75/25, 24 units BIDAC - Diabetes inpatient education - Education about correctional insulin scale for patient's daughter provided - Discontinued insulin drip on 09/09/2016 (this was initiated overnight due to grossly uncontrolled blood sugar without ketoacidosis) - Increased NPH 40 units BID with Lispro 10 units every meal with a high dose correctional scale - On day of discharge, NPH/lispro 75/25 home dose was increased to 35 units BIDAC -Patient encouraged to check blood glucose 4 times a day (fasting, before lunch , before dinner, bedtime) * Education provided on interventions for hyper and/or hypoglycemia. Chronic obstructive pulmonary disease, acute exacerbation, present on admission , active. - Pt reported a worsening cough and no improvement with at home nebulizer and inhaler. Not on home oxygen use. Former smoker with 25 pack year history. 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 - Grade 2 diastolic dysfunction seen on echocardiogram in 07/2016 as above - Given IV normal saline in context of acute sepsis - Continue beta genny and statin - Continue aspirin 81 mg once daily - Monitor daily weights and I&Os - Patient's daughter requested discussion with palliative care - POLST form updated to reflect patient desires: DO NOT RESUSCITATE/DO NOT INTUBATE - Palliative care consulted and following. Their time and recommendations are appreciated. Chronic hypertension, present on admission, stable. - He no longer takes an ACEI/ARB due to acute kidney injury at previous hospitalization - Continue carvedilol 3.125 mg BIDWM (patient and family reported that they no longer had this medication at home, and had not yet pursued refill through PCP, therefore provided prescription at time of discharge) - Consider resuming an ACEI/ARB if pt is hypertensive and kidney function is stable Chronic hyperlipidemia, present on admission, stable. - Continue statin therapy Elevated troponin of unknown significance, acute on chronic, present on admission, resolved. - Elevated in the past during previous admissions in 04/2016 and 07/2016. - Most likely due to demand ischemia with known minor coronary artery disease seen on cardiac catheterization in 2007 in the setting of an acute infection/ stressor. - Pt denies chest pain and EKG did not show concerning ST segment changes - Elevated minimally today at 0.018 and decreased to negative times 2 - Continue beta genny, statin, and aspirin Patient presented with COPD exacerbation in the setting of bacterial community- acquired pneumonia. Treatment with IV antibiotics completed on day of discharge , and patient is demonstrated remarkable recovery. However, continues to require oxygen with exertion, and therefore provided home oxygen for his needs following discharge. On the day of discharge, patient eating and drinking without complication, stooling and voiding without difficulty, ambulating with minimal additional support (appropriate for home health discharge), pain-free, saturating 88-92% on room air at rest (using oxygen appropriately with exertion). All questions and concerns discussed in detail with patient and his family today prior to discharge. Notified patient's PCP, Dr. Gutierrez, via [facility] answering service regarding patient's discharge today. A copy of this discharge summary will be forwarded to PCP. Exam Vital Signs (Last) Date Time Temp Pulse Resp B/P Pulse Ox O2 Delivery O2 Flow Rate FiO2 09/10/16 12:17 36.5 72 16 149/85 90 Room Air 09/09/16 16:43 2.00 09/09/16 16:42 21 Exam Physical exam on day of discharge: General: Elderly gentlemen sitting partially up in bed on room air, in no acute distress, well-developed, thin, appropriately interactive HEENT: Normocephalic, atraumatic. External ears without defect. Anicteric sclerae, moist conjunctivae, and no lid lag. Oropharynx free of erythema and cobble stoning with moist mucosa. Neck: Supple with full range of motion. Trace jugular venous distension. No lymphadenopathy or thyromegaly. Cardiovascular: Regular rate and rhythm with no murmurs, rubs, or gallops appreciated Pulmonary: Bilateral scattered crackles at lung bases with good air movement. Normal respiratory effort without use of accessory muscles. Abdomen: Bowel tones present. Soft, nontender, nondistended. Extremities: Trace pitting, pedal edema bilaterally. No clubbing, cyanosis, edema, or lymphadenopathy appreciated. Skin: Normal temperature, turgor, and texture; no rash, ulcers, or subcutaneous nodules appreciated. Neurological: Cranial nerves grossly intact. Normal muscle strength grossly. No known gait impairment. Psychiatric: Normal mood and affect. Alert and oriented to person and place and disoriented to time. Test 09/06/16 05:09 09/06/16 05:25 09/06/16 11:00 09/06/16 20:10 Urine Color Yellow (YELLOW) Urine Appearance Slightly cloudy Urine pH 5.5 (5.0-8.0) Urine Specific [place] 1.030 (1.003-1.035) Urine Protein 100mg/dL (NEG,TRACE) Urine Glucose (UA) 250mg/dL (NEGATIVE) Urine Ketones Negativemg/dL (NEGATIVE) Urine Occult Blood Small (NEGATIVE) Urine Nitrite Negative (NEGATIVE) Urine Bilirubin Negative (NEGATIVE) Urine Urobilinogen Normalmg/dL (NORMAL) Urine Leukocyte Esterase Negative (NEGATIVE) Urine RBC 0-2/hpf (0-2) Urine WBC 0-5/hpf (0-5) Urine Epithelial Cells Occasional/hpf (NONE-MOD) Urine Crystals None seen (NONE SEEN) Urine Bacteria None/hpf (NONE-FEW) Urine Hyaline Casts None/lpf (NONE) Urine Granular Casts Occasional (NONE SEEN) Urine Waxy Casts None seen (NONE SEEN) Urine Red Blood Cell Casts None seen (NONE SEEN) Urine White Blood Cell Casts None seen (NONE SEEN) Urine Mucus None seen (None Seen) Urine Trichomonas None seen (NONE SEEN) Urine Yeast None (NONE SEEN) Urinalysis Comment Urine Culture Reflexed Not indicated Lactic Acid Level 0.8mmol/L (0.4-2.0) Magnesium Level 1.7mg/dL (1.6-2.6) Pro-B-Type Natriuretic Peptide 3995pg/mL (0-486) Urine Legionella pneumophilia Ag Negative (Negative) Troponin T < 0.010ug/L (0.0-0.011) Test 09/07/16 03:30 09/07/16 20:32 09/08/16 02:30 09/09/16 02:11 Hemoglobin A1c 10.0% (4.8-5.6) Hold Red Top Tube Received (Received) Procalcitonin 0.13ng/mL (0.00-0.08) Total Bilirubin 0.2mg/dL (0.0-1.2) Aspartate Amino Transf (AST/SGOT) 16U/L (0-50) Alanine Aminotransferase (ALT/SGPT) 18U/L (0-44) Alkaline Phosphatase 102U/L (25-160) Total Protein 5.3g/dL (6.4-8.4) Albumin 2.5g/dL (3.4-5.0) Test 09/10/16 02:40 White Blood Count 9.8th/mm3 (3.8-10.1) Red Blood Count 4.60mil/mm3 (4.40-5.80) Hemoglobin 13.6g/dL (13.8-17.2) Hematocrit 39.0% (41.0-50.0) Mean Corpuscular Volume 84.8fL (81-100) Mean Corpuscular Hemoglobin 29.6pg (27.0-35.0) Mean Corpuscular Hemoglobin Concent 34.9% (32.0-37.0) Red Cell Distribution Width 13.2% (12.3-15.4) Platelet Count 291bil/L (150-400) Neutrophils (%) (Auto) 76.6% (40-74) Lymphocytes (%) (Auto) 10.7% (14-46) Monocytes (%) (Auto) 8.5% (4-12) Eosinophils (%) (Auto) 0.1% (0-5) Basophils (%) (Auto) 0.3% (0-3) Sodium Level 141mEq/L (134-144) Potassium Level 4.4mEq/L (3.5-5.2) Chloride Level 104mEq/L (97-108) Carbon Dioxide Level 24mmol/L (18-29) Blood Urea Nitrogen 29mg/dL (8-27) Creatinine 0.95mg/dL (0.76-1.27) Estimat Glomerular Filtration Rate 80mL/min (>59) Glucose Level 164mg/dL (60-99) Calcium Level 8.4mg/dL (8.5-10.1) Microbiology Results Microbiology WES CULT SPUTUM GS Final 09/06/16 SPT GRAM STAIN FEW POLYS RARE EPITHELIAL CELLS FEW MIXED NORMAL JAMILAH This Spec is of good Quality and acceptable for Cult RESPIRATORY CULTURE Final 09/08/16 Organism 1 HAEMOPHILUS INFLUENZAE COLONY COUNT/QUANTITY HEAVY GROWTH BETA LACTAM (CEFINASE) SENSITIVE Organism 2 WITH NORMAL JAMILAH COLONY COUNT/QUANTITY MODERATE GROWTH BETA LACTAM (CEFINASE) SENSITIVE "Amoxicillin-clavulanic acid, azithromycin, clarithromycin, cefaclor, cefprozil, loracarbef, cefdinir, cefixime, cefpodoxime, cefuroxime, and telithromycin are oral agents that may be used as empiric therapy for respiratory tract infections due to Haemophilus spp. The results of susceptibility tests with these antimicrobial agents are often not useful for management of individual patients. (CLSI) If susceptibility testing is desired please contact the laboratory within 3 days." 1. HAEMOPHILUS INFLUENZAE [facility] Interp --------- ------ * AMPICILLIN S * AMPICILLIN/SULBACTAM S * CEFTRIAXONE S * CEFUROXIME(PARENTERAL) S * CHLORAMPHENICOL S * LEVOFLOXACIN S * MEROPENEM S * TETRACYCLINE S * TRIMETHOPRIM/SULFAMETHOXAZOLE S Discharge Medications Discharge Medications Ascorbic Acid (Vitamin C) 1,000 Mg Tab.chew 1,000 MG PO DAILY (Reported) Aspirin (Aspirin) 81 Mg Tablet 81 MG PO DAILY (Reported) Carvedilol (Carvedilol) 3.125 Mg Tablet 3.125 MG PO BIDWM Prescribed by: DAVID WHIPPLE MD Carvedilol (Carvedilol) 3.125 Mg Tablet 3.125 MG PO BID Prescribed by: COBY HDEZ DO Fluticasone Propionate (Flovent HFA 110 mcg) 12 Gm Aer.w.adap 2 PUFFS IH BID ( Reported) Gluc 2Kcl/Chondr/Magaly Hy/Hy AC (Glucosamine & Chondroitin Cap) 1 Each Capsule 1 EACH PO DAILY (Reported) Insulin NPL/Insulin Lispro (HumaLOG 75/25 U100 Insulin Kwikpen) 100 Unit/1 Ml Insuln.pen 35 UNIT SUBQ BIDAC Prescribed by: HOSEA HOROWITZ DO Ipratropium/Albuterol Sulfate (Iprat-Albut 0.5-3(2.5) mg/3 mL Inhalant Soln) 3 Ml Ampul.neb 3 ML NEB QIDWA Prescribed by: DAVID WHIPPLE MD Lovastatin (Lovastatin) 20 Mg Tablet 20 MG PO HS (Reported) Multivit-Min/FA/Lutein/Zeaxant (Macular Vitamin Tablet) 1 Each Tablet 3 TABLET PO DAILY (Reported) [place]-3 Fatty Acids/Fish Oil (Fish Oil 1,000 mg Softgel) 1 Each Capsule 1 CAPSULE PO DAILY (Reported) Prednisone (Deltasone) 20 Mg Tablet 20 MG PO DAILY Prescribed by: HOSEA HOROWITZ DO As needed Glucagon,Human Recombinant (Glucagon Emergency Kit) 1 Mg Kit 1 MG IM DAILY PRN PRN Hypoglycemia (Reported) Followup Plan Disposition: Home with home health services. Follow-up plan Strong consideration for follow-up appointments with cardiology, pulmonology, endocrinology. Cardiac/pulmonary rehabilitation order placed on day of discharge, consider contacting rehabilitation facility at [facility] to follow up on order. Discharge Diet: Heart Healthy, Diabetic Discharge Activity: Home Health Phyical Therapy Patient Instructions Continue physical therapy with home health physical therapy 2-3 times per week for about 4 weeks to progress to your baseline strength and balance. Start home health nursing for medication management for insulin, and diabetic, cardiac, and respiratory (post-pneumonia) assessment and teaching. Start home health medical administrative to assess for patient's need for community resources or need for family assistance. Speech therapy recommends that you eat regular foods, have natural nectars with meals, and thin liquids between meals after oral care. Your caregivers should continue to give cues for slow intake and frequent oral care. You should be upright 20 minutes after a meal, stop eating or drinking if you are coughing, sit upright while eating and drinking, do oral care after meals, and do not use straws. Contact the cardiology office to reschedule your appointment. Continue taking carvedilol 3.125 mg twice per day, aspirin daily, and lovastatin daily. You finished an antibiotic course for pneumonia. You received antibiotics for 5 days while you were in the hospital. Today was your last day of antibiotics. For chronic lung conditions, you would benefit from having oxygen at home because your oxygen saturation dropped to 86% while you were walking. Your goal oxygen saturation is 88-92%. Continue to use your Flovent inhaler daily and to use your DuoNeb nebulizer treatments every 6 hours while you are awake. Continue a steroid taper by taking prednisone 20 mg once daily for 7 days starting tomorrow morning. For diabetes mellitus and blood sugar management, increase your insulin dose to 35 units of the Insulin NPL/Insulin [place]ro (HumaLog 75/25 pen) twice per day before meals. Consider following up with Dr. Patel, an meat cutter apprentice or care specialist, every 4-6 weeks as you did in the past. Follow up with your primary care provider in 7-10 days. Discuss with your primary care provider about a possible pulmonology consultation and possibly getting pulmonary function tests. You had education provided by cardiopulmonary rehabilitation prior to leaving the hospital. Follow-up Provider: Bandar Gutierrez DO Follow-up with PCP in: 1 week CHF Clinic: Other (when first available) Time spent 60 min Attending Statement Patient seen and examined with house staff. Agree with all attached documentation. copies to: Bandar Gutierrez Collin T DO September 10, 2016 16:33 Srinivas Morgan MD September 11, 2016 07:46
== END 2016-09-10 15:30 | disposition home health service (06) | DRG 871 ==
LOC: SED 04:54 → EDBD 04:54 → PCC 13:07
PROVIDERS: ADMIT Hospitalist; ATTEND Hospitalist
PROC: 4A033R1 Measurement of Arterial Saturation, Peripheral, Percutaneous Approach (ICD-10-PCS; principal; 2016-09-06)
DX: A41.9 Sepsis, unspecified organism (principal); J96.21 Acute and chronic respiratory failure with hypoxia; J96.22 Acute and chronic respiratory failure with hypercapnia; J14 Pneumonia due to Hemophilus influenzae; J44.1 Chronic obstructive pulmonary disease with (acute) exacerbation; I50.32 Chronic diastolic (congestive) heart failure; E87.3 Alkalosis; E87.2 Acidosis; I24.8 Other forms of acute ischemic heart disease; E11.9 Type 2 diabetes mellitus without complications; Z79.4 Long term (current) use of insulin; I10 Essential (primary) hypertension; E78.5 Hyperlipidemia, unspecified; Z87.891 Personal history of nicotine dependence; Z51.5 Encounter for palliative care